=== PATIENT | female | born 1975 | race Caucasian/White ===

== ENCOUNTER 2016-06-25 10:28 | Outpatient (CLI) | payer OTHER | END 2016-06-25 10:29 | disposition home or self-care (01) | DX: E11.9 Type 2 diabetes mellitus without complications (principal) ==

== ENCOUNTER 2016-09-11 15:35 | Outpatient (CLI) | payer OTHER | END 2016-09-11 23:59 | DX: R30.0 Dysuria (principal) ==

== ENCOUNTER 2016-09-16 17:27 | Outpatient (CLI) | payer OTHER | END 2016-09-16 17:28 | disposition home or self-care (01) | DX: E11.9 Type 2 diabetes mellitus without complications (principal) ==

== ENCOUNTER 2017-01-14 08:26 | Outpatient (CLI) | payer OTHER ==
[2017-01-14 12:56] LABS: ALBUMIN/GLOBULIN RATIO 1.2 (1.0-2.2); BILIRUBIN,TOTAL 0.6 mg/dL (0.2-1.0); BUN - BLOOD UREA NITROGEN 12 mg/dL (6-20); CALCIUM 10.1 mg/dL (8.5-10.3); CARBON DIOXIDE - CO2 26 mmol/L (21-32); CHLORIDE 104 mmol/L (101-111); CHOL/HDL RATIO 5.8 (<4.4); CHOLESTEROL 213 mg/dL; CREATININE 0.5 mg/dL (0.4-1.0); GFR - MDRD 137 (>89); GLUCOSE 208 mg/dL (70-100); HDL CHOLESTEROL 37 mg/dL; LDL/HDL RATIO 3.6 (<4.4); POTASSIUM 4.5 mmol/L (3.5-5.0); SODIUM 137 mmol/L (135-145); TOTAL PROTEIN 7.1 g/dL (6.7-8.2); TRIGLYCERIDES 220 mg/dL; VLDL CHOLESTEROL 44 mg/dL
[2017-01-14 13:13] LABS: HEMOGLOBIN A1C 0.89 g/dL
== END 2017-01-14 08:27 | disposition home or self-care (01) ==
LOC: LAB.WCP 08:26
PROVIDERS: ATTEND Physician Assistant Medical
DX: E11.9 Type 2 diabetes mellitus without complications (principal)
CPT/HCPCS: 36415; 80053; 80061; 83036

== ENCOUNTER 2017-03-06 08:00 | Outpatient (CLI) | payer OTHER | END 2017-03-06 08:01 | disposition home or self-care (01) | LOC: LAB.R 08:00 | PROVIDERS: ATTEND Physician Assistant Medical | DX: L03.039 Cellulitis of unspecified toe (principal) | CPT/HCPCS: 87070; 87077; 87205 ==

== ENCOUNTER 2017-04-07 09:09 | Outpatient (CLI) | payer OTHER ==
[2017-04-07 13:04] LABS: ALBUMIN/GLOBULIN RATIO 1.1 (1.0-2.2); BILIRUBIN,TOTAL 0.9 mg/dL (0.2-1.0); BUN - BLOOD UREA NITROGEN 10 mg/dL (6-20); CALCIUM 9.8 mg/dL (8.5-10.3); CARBON DIOXIDE - CO2 25 mmol/L (21-32); CHLORIDE 104 mmol/L (101-111); CHOL/HDL RATIO 5.9 (<4.4); CHOLESTEROL 189 mg/dL; CREATININE 0.5 mg/dL (0.4-1.0); GFR - MDRD 137 (>89); GLUCOSE 155 mg/dL (70-100); HDL CHOLESTEROL 32 mg/dL; POTASSIUM 3.9 mmol/L (3.5-5.0); SODIUM 136 mmol/L (135-145); TOTAL PROTEIN 7.3 g/dL (6.7-8.2); TRIGLYCERIDES 145 mg/dL; VLDL CHOLESTEROL 29 mg/dL
[2017-04-07 13:12] LABS: HEMOGLOBIN A1C 1.04 g/dL
== END 2017-04-07 09:10 | disposition home or self-care (01) ==
LOC: LAB.WCP 09:09
PROVIDERS: ATTEND Physician Assistant Medical
DX: E78.5 Hyperlipidemia, unspecified (principal); E11.9 Type 2 diabetes mellitus without complications
CPT/HCPCS: 36415; 80053; 80061; 82043; 83036

== ENCOUNTER 2017-06-23 08:00 | Outpatient (CLI) | payer OTHER ==
[2017-06-23 13:23] LABS: ALBUMIN/GLOBULIN RATIO 1.3 (1.0-2.2); ALKALINE PHOSPHATASE 69 IU/L (42-121); ALT ALANINE AMINOTRANSFERASE 132 IU/L (10-60); AST ASPARTATE AMINOTRANSFERASE 102 IU/L (10-42); BILIRUBIN,TOTAL 0.5 mg/dL (0.2-1.0); BUN - BLOOD UREA NITROGEN 9 mg/dL (6-20); CALCIUM 9.9 mg/dL (8.5-10.3); CARBON DIOXIDE - CO2 26 mmol/L (21-32); CHLORIDE 102 mmol/L (101-111); CHOL/HDL RATIO 5.9 (<4.4); CHOLESTEROL 201 mg/dL; CREATININE 0.6 mg/dL (0.4-1.0); GFR - MDRD 111 (>89); GLUCOSE 196 mg/dL (70-100); HDL CHOLESTEROL 34 mg/dL; LDL CHOLESTEROL,CALCULATED 139 mg/dL; LDL/HDL RATIO 4.1 (<4.4); SODIUM 135 mmol/L (135-145); TOTAL PROTEIN 7.2 g/dL (6.7-8.2); VLDL CHOLESTEROL 28 mg/dL
[2017-06-23 13:51] LABS: HB2 TOTAL 15.8 g/dL; HEMOGLOBIN A1C 1.05 g/dL; HEMOGLOBIN A1C % 8.2 % (4.6-6.2)
== END 2017-06-23 08:01 | disposition home or self-care (01) ==
LOC: LAB.WCP 08:00
PROVIDERS: ATTEND Physician Assistant Medical
DX: E78.5 Hyperlipidemia, unspecified (principal); E11.9 Type 2 diabetes mellitus without complications
CPT/HCPCS: 36415; 80053; 80061; 83036; 83721

== ENCOUNTER 2017-09-15 09:23 | Outpatient (CLI) | payer OTHER ==
[2017-09-15 12:39] LABS: ALBUMIN 3.9 g/dL (3.2-5.5); ALBUMIN/GLOBULIN RATIO 1.3 (1.0-2.2); BILIRUBIN,TOTAL 0.6 mg/dL (0.2-1.0); CALCIUM 9.7 mg/dL (8.5-10.3); CREATININE 0.4 mg/dL (0.4-1.0)
[2017-09-16 13:42] LABS: HEPATITIS C ANTIBODY NON-REACTIVE (NON-REACTIVE)
== END 2017-09-15 09:24 | disposition home or self-care (01) ==
LOC: LAB.WCP 09:23
PROVIDERS: ATTEND Physician Assistant Medical
DX: E78.5 Hyperlipidemia, unspecified (principal); K76.0 Fatty (change of) liver, not elsewhere classified
CPT/HCPCS: 36415; 80053; 86704; 86709; 86803

== ENCOUNTER 2017-12-31 11:44 | Outpatient (CLI) | payer OTHER ==
[2017-12-31 19:11] LABS: CALCIUM 9.8 mg/dL (8.5-10.3)
[2017-12-31 19:14] LABS: HB2 TOTAL 15.7 g/dL; HEMOGLOBIN A1C 1.26 g/dL; HEMOGLOBIN A1C % 9.5 % (4.6-6.2)
[2017-12-31 19:23] LABS: CREATININE 0.5 mg/dL (0.4-1.0)
== END 2017-12-31 11:45 | disposition home or self-care (01) ==
LOC: LAB.WCP 11:44
PROVIDERS: ATTEND Physician Assistant Medical
DX: E11.9 Type 2 diabetes mellitus without complications (principal)
CPT/HCPCS: 36415; 80048; 83036

== ENCOUNTER 2018-03-08 21:50 | Outpatient (CLI) | payer OTHER ==
--- NOTE | 2018-03-08 23:01 | Ultrasound Report ---
Reason: ABSCESS,BACK Procedure Date: 03/08/2018 Accession Number: [id number] / [id number] Procedure: US - Chest CPT Code: FULL RESULT: EXAM: THORAX ULTRASOUND LIMITED EXAM DATE: 03/08/2018 10:09 PM. CLINICAL HISTORY: Open sore, upper left back. Concern for abscess. Drained last week. COMPARISON: None. TECHNIQUE: Real-time scanning was performed with static images obtained. FINDINGS: In the subcutaneous fat lateral to the open wound is a heterogeneous hypoechoic poorly defined area with vascularity roughly 3.3 x 1.9 cm. No drainable fluid collection. IMPRESSION: Ill-defined hypoechoic 3.3 x 1.9 area of increased vascularity in the subcutaneous fat lateral to the open wound, likely phlegmon. RADIA
== END 2018-03-08 21:51 | disposition home or self-care (01) ==
LOC: DI 21:50
PROVIDERS: ATTEND Nurse Practitioner
DX: L02.212 Cutaneous abscess of back [any part, except buttock and flank] (principal)
CPT/HCPCS: 76604

== ENCOUNTER 2018-07-05 11:59 | Outpatient (CLI) | payer OTHER ==
[2018-07-05 19:00] LABS: ALBUMIN 3.8 g/dL (3.2-5.5); ALBUMIN/GLOBULIN RATIO 1.1 (1.0-2.2); ALKALINE PHOSPHATASE 73 IU/L (42-121); ALT ALANINE AMINOTRANSFERASE 69 IU/L (10-60); AST ASPARTATE AMINOTRANSFERASE 48 IU/L (10-42); BUN - BLOOD UREA NITROGEN 12 mg/dL (6-20); CALCIUM 9.7 mg/dL (8.5-10.3); CARBON DIOXIDE - CO2 26 mmol/L (21-32); CHLORIDE 101 mmol/L (101-111); CHOL/HDL RATIO 7.3 (<4.4); CHOLESTEROL 256 mg/dL; CREATININE 0.6 mg/dL (0.4-1.0); GFR - MDRD 111 (>89); GLUCOSE 221 mg/dL (70-100); HDL CHOLESTEROL 35 mg/dL; LDL CHOLESTEROL,CALCULATED 178 mg/dL; LDL/HDL RATIO 5.1 (<4.4); SODIUM 138 mmol/L (135-145); TOTAL PROTEIN 7.2 g/dL (6.7-8.2); VLDL CHOLESTEROL 43 mg/dL
[2018-07-05 19:03] LABS: HB2 TOTAL 16.4 g/dL; HEMOGLOBIN A1C 1.25 g/dL; HEMOGLOBIN A1C % 9.1 % (4.6-6.2)
== END 2018-07-05 12:00 | disposition home or self-care (01) ==
LOC: LAB.WCP 11:59
PROVIDERS: ATTEND Physician Assistant Medical
DX: E11.9 Type 2 diabetes mellitus without complications (principal)
CPT/HCPCS: 36415; 80053; 80061; 83036; 83721

== ENCOUNTER 2018-09-15 13:42 | Emergency (ER) | payer OTHER ==
--- NOTE | 2018-09-15 14:42 | ED Physician Documentation ---
History of Present Illness - Stated complaint Stated Complaint: LOWER ABD/BACK PX - Chief complaint Chief Complaint: Abd Pain - History obtained from History obtained from: Patient - History of Present Illness Pain level max: 8 Pain level now: 8 - Additonal information Additional information: 43-year-old female presents to the emergency department with lower abdominal pain that radiates to the back, this is bilateral. Worse with movement and better with rest. Describes it as a "burning pain in my ovaries". She has no vaginal bleeding or discharge. No fevers. No trauma. Took Aleve without relief. States had a UTI approximately 1 month ago. Has mild dysuria now. Review of Systems Constitutional: denies: Fever, Chills Respiratory: denies: Cough, Wheezing Skin: denies: Rash Neurologic: denies: Focal weakness, Numbness, Confused, Altered mental status PD PAST MEDICAL HISTORY - Past Medical History Past Medical History: Yes Endocrine/Autoimmune: Type 1 diabetes Other Past Medical History: Reports hormonal issues. - Past Surgical History Past Surgical History: No - Present Medications Home Medications: Ambulatory Orders Medication Instructions Recorded Confirmed Cefdinir 300 mg PO BID #28 capsule 09/15/18 - Allergies Allergies/Adverse Reactions: Allergies Allergy/AdvReac Type Severity Reaction Status Date / Time No Known Drug Allergies Allergy Verified 09/15/18 13:54 - Social History Does the pt smoke?: No Smoking Status: Never smoker Does the pt drink ETOH?: No Does the pt have substance abuse?: No - Immunizations Immunizations are current?: Yes PD ED PE NORMAL - Vitals Vital signs reviewed: Yes - General General: Alert and oriented X 3, No acute distress, Well developed/nourished - HEENT HEENT: PERRL, Moist mucous membranes - Neck Neck: Supple, no meningeal sign - Cardiac Cardiac: RRR - Respiratory Respiratory: Clear bilaterally - Abdomen Abdomen: Soft, Non tender, Non distended - Back Back: No CVA TTP, No spinal TTP - Derm Derm: Warm and dry - Extremities Extremities: No calf tenderness / cord - Neuro Neuro: Alert and oriented X 3 - Psych Psych: Normal mood, Normal affect Results - Vitals Vitals: Vital Signs - 24 hr 09/15/18 09/15/18 09/15/18 13:52 16:05 17:07 Temperature 36.7 C 36.8 C Heart Rate 91 98 Respiratory 18 18 18 Rate Blood Pressure 183/91 H 172/92 H 150/109 H O2 Saturation 97 96 Oxygen O2 Source Room air - Labs Labs: Laboratory Tests 09/15/18 09/15/18 09/15/18 14:20 14:20 14:40 WBC 9.0 RBC 5.36 Hgb 15.1 Hct 45.5 MCV 84.9 MCH 28.2 MCHC 33.2 RDW 13.2 Plt Count 264 MPV 9.5 Neut # (Auto) 4.8 Lymph # (Auto) 3.4 [place] # (Auto) 0.6 Eos # (Auto) 0.1 Baso # (Auto) 0.1 Absolute Nucleated RBC 0.00 Nucleated RBC % 0.0 Sodium Potassium Chloride Carbon Dioxide Anion Gap BUN Creatinine Estimated GFR (MDRD) Glucose Calcium Total Bilirubin AST ALT Alkaline Phosphatase Total Protein Albumin Globulin Albumin/Globulin Ratio Lipase Urine Color YELLOW Urine Clarity HAZY Urine pH 7.0 Ur Specific Alexander 1.015 1.015 Urine Protein TRACE Urine Glucose (UA) 500 H Urine Ketones 15 H Urine Occult Blood TRACE-LYSE Urine Nitrite NEGATIVE Urine Bilirubin NEGATIVE Urine Urobilinogen 0.2 (NORMAL) Ur Leukocyte Esterase NEGATIVE Urine RBC 0-5 Urine WBC 6-10 H Ur Squamous Epith Cells MANY Squamous H Amorphous Sediment Rare Urine Bacteria Many H Ur Microscopic Review INDICATED Urine Culture Comments NOT INDICATED Urine HCG, Qual NEGATIVE 09/15/18 14:40 WBC RBC Hgb Hct MCV MCH MCHC RDW Plt Count MPV Neut # (Auto) Lymph # (Auto) [place] # (Auto) Eos # (Auto) Baso # (Auto) Absolute Nucleated RBC Nucleated RBC % Sodium 135 Potassium 3.8 Chloride 99 L Carbon Dioxide 24 Anion Gap 12.0 BUN 12 Creatinine 0.5 Estimated GFR (MDRD) 136 Glucose 209 H Calcium 10.1 Total Bilirubin 0.7 AST 52 H ALT 63 H Alkaline Phosphatase 82 Total Protein 7.4 Albumin 3.9 Globulin 3.5 Albumin/Globulin Ratio 1.1 Lipase 28 Urine Color Urine Clarity Urine pH Ur Specific Alexander Urine Protein Urine Glucose (UA) Urine Ketones Urine Occult Blood Urine Nitrite Urine Bilirubin Urine Urobilinogen Ur Leukocyte Esterase Urine RBC Urine WBC Ur Squamous Epith Cells Amorphous Sediment Urine Bacteria Ur Microscopic Review Urine Culture Comments Urine HCG, Qual PD MEDICAL DECISION MAKING - ED course Complexity details: reviewed results, re-evaluated patient, considered differential, d/w patient ED course: 43-year-old female with what appears to be a UTI. She is well-appearing, nontoxic. Declines any pain medication here for home. Given Rocephin and will place on Cefdinir for home. Patient counseled regarding signs and symptoms for which I believe and urgent re-evaluation would be necessary. Patient with good understanding of and agreement to plan and is comfortable going home at this time This document was made in part using voice recognition software. While efforts are made to proofread this document, sound alike and grammatical errors may occur. Departure - Departure Disposition: 01 Home, Self Care Clinical Impression: Pyelonephritis Condition: Good Instructions: ED Kidney Infec Female Follow-Up: Sybil Matthews PA-C [Primary Care Provider] - Within 1 week Prescriptions: Cefdinir 300 mg PO BID #28 capsule Comments: Take all antibiotics until gone. Return if you worsen. Follow-up with your doctor for further evaluation and care. Discharge Date/Time: 09/15/18 17:09
[2018-09-15 14:46] LABS: BASOPHILS # (AUTO) 0.1 10^3/uL (0.0-0.1); BASOPHILS % (AUTO) 1.1 %; EOSINOPHILS # (AUTO) 0.1 10^3/uL (0.0-0.7); EOSINOPHILS % (AUTO) 1.1 %; HGB - HEMOGLOBIN 15.1 g/dL (12.0-16.0); LYMPHOCYTES # (AUTO) 3.4 10^3/uL (1.5-3.5); LYMPHOCYTES % (AUTO) 37.7 %; MEAN CORPUSCULAR HEMOGLOBIN 28.2 pg (27.0-31.0); MEAN CORPUSCULAR HGB CONC 33.2 g/dL (32.0-36.0); MEAN CORPUSCULAR VOLUME 84.9 fL (81.0-99.0); MEAN PLATELET VOLUME 9.5 fL (7.9-10.8); MONOCYTES # (AUTO) 0.6 10^3/uL (0.0-1.0); MONOCYTES % (AUTO) 6.6 %; NEUTROPHILS # (AUTO) 4.8 10^3/uL (1.5-6.6); NEUTROPHILS % (AUTO) 53.5 %; PLT - PLATELET COUNT 264 10^3/uL (130-450); RED BLOOD COUNT 5.36 10^6/uL (4.20-5.40); RED CELL DISTRIBUTION WIDTH 13.2 % (12.0-15.0)
[2018-09-15 14:59] LABS: ALBUMIN 3.9 g/dL (3.2-5.5); ALBUMIN/GLOBULIN RATIO 1.1 (1.0-2.2); BILIRUBIN,TOTAL 0.7 mg/dL (0.2-1.0); CALCIUM 10.1 mg/dL (8.5-10.3); CREATININE 0.5 mg/dL (0.4-1.0); TOTAL PROTEIN 7.4 g/dL (6.7-8.2)
[2018-09-15] MEDS ORDERED: KETOROLAC 30 MG/ML VIAL IVP STA (15:52)
[2018-09-15 15:55] LABS: BILIRUBIN,URINE NEGATIVE (NEGATIVE); GLUCOSE, URINE (UA) 500 mg/dL (NEGATIVE); KETONES,URINE (UA) 15 mg/dL (NEGATIVE); LEUKOCYTE ESTERASE, URINE NEGATIVE (NEGATIVE); NITRITE,URINE NEGATIVE (NEGATIVE); OCCULT BLOOD,URINE TRACE-LYSE (NEGATIVE); PROTEIN,URINE TRACE mg/dL (NEGATIVE); UROBILINOGEN,URINE 0.2 (NORMAL) E.U./dL (NORMAL)
[2018-09-15 16:01] LABS: CLARITY,URINE HAZY (CLEAR)
[2018-09-15 16:02] LABS: HCG UR QUAL NEGATIVE
[2018-09-15 16:09] LABS: AMORPHOUS SEDIMENT,UR Rare /LPF; BACTERIA,URINE Many /HPF (None Seen); RBC,URINE 0-5 /HPF (0-5); SQUAMOUS EPITHELIAL CELL,UR MANY Squamous (<= Few)
[2018-09-15] MEDS ORDERED: cefTRIAXone 1 GM VIAL IVP STA (16:25)
[2018-09-15 17:07] VITALS: BP 150/109
== END 2018-09-15 17:09 | disposition home or self-care (01) ==
LOC: ED 13:42
DX: N12 Tubulo-interstitial nephritis, not specified as acute or chronic (principal); E10.9 Type 1 diabetes mellitus without complications
CPT/HCPCS: 36415; 80053; 81001; 81003; 81025; 83690; 85025; 87086; 96374; 99283

== ENCOUNTER 2018-09-24 11:30 | Outpatient (CLI) | payer OTHER | END 2018-09-24 23:59 | disposition home or self-care (01) | LOC: LAB.R 11:30 | PROVIDERS: ATTEND Physician Assistant Medical | DX: N39.0 Urinary tract infection, site not specified (principal) | CPT/HCPCS: 87086 ==

== ENCOUNTER 2018-09-30 09:28 | Outpatient (CLI) | payer OTHER ==
[2018-09-30 13:26] LABS: HB2 TOTAL 15.9 g/dL; HEMOGLOBIN A1C 1.15 g/dL; HEMOGLOBIN A1C % 8.8 % (4.6-6.2)
[2018-09-30 13:34] LABS: ALBUMIN 3.8 g/dL (3.2-5.5); ALBUMIN/GLOBULIN RATIO 1.1 (1.0-2.2); ALKALINE PHOSPHATASE 63 IU/L (42-121); ALT ALANINE AMINOTRANSFERASE 62 IU/L (10-60); AST ASPARTATE AMINOTRANSFERASE 54 IU/L (10-42); BILIRUBIN,TOTAL 1.2 mg/dL (0.2-1.0); BUN - BLOOD UREA NITROGEN 12 mg/dL (6-20); CALCIUM 10.2 mg/dL (8.5-10.3); CARBON DIOXIDE - CO2 27 mmol/L (21-32); CHLORIDE 101 mmol/L (101-111); CHOL/HDL RATIO 6.6 (<4.4); CHOLESTEROL 244 mg/dL; CREATININE 0.4 mg/dL (0.4-1.0); GFR - MDRD 176 (>89); GLUCOSE 163 mg/dL (70-100); HDL CHOLESTEROL 37 mg/dL; LDL CHOLESTEROL,CALCULATED 157 mg/dL; LDL/HDL RATIO 4.2 (<4.4); SODIUM 137 mmol/L (135-145); TOTAL PROTEIN 7.3 g/dL (6.7-8.2); VLDL CHOLESTEROL 50 mg/dL
== END 2018-09-30 09:29 | disposition home or self-care (01) ==
LOC: LAB.WCP 09:28
PROVIDERS: ATTEND Physician Assistant Medical
DX: E11.9 Type 2 diabetes mellitus without complications (principal)
CPT/HCPCS: 36415; 80053; 80061; 83036; 83721

== ENCOUNTER 2018-10-07 10:00 | Outpatient (CLI) | payer OTHER | END 2018-10-07 10:01 | disposition home or self-care (01) | LOC: LAB.WCP 10:00 | PROVIDERS: ATTEND Physician Assistant Medical | DX: N39.0 Urinary tract infection, site not specified (principal) | CPT/HCPCS: 87086 ==

== ENCOUNTER 2018-12-30 08:00 | Outpatient (CLI) | payer OTHER ==
[2018-12-30 19:05] LABS: ALBUMIN/GLOBULIN RATIO 1.3 (1.0-2.2); ALKALINE PHOSPHATASE 64 IU/L (42-121); ALT ALANINE AMINOTRANSFERASE 57 IU/L (10-60); AST ASPARTATE AMINOTRANSFERASE 39 IU/L (10-42); BILIRUBIN,TOTAL 0.8 mg/dL (0.2-1.0); BUN - BLOOD UREA NITROGEN 12 mg/dL (6-20); CALCIUM 10.1 mg/dL (8.5-10.3); CARBON DIOXIDE - CO2 26 mmol/L (21-32); CHLORIDE 103 mmol/L (101-111); CHOL/HDL RATIO 6.1 (<4.4); CHOLESTEROL 226 mg/dL; CREATININE 0.4 mg/dL (0.4-1.0); GFR - MDRD 176 (>89); GLUCOSE 190 mg/dL (70-100); HDL CHOLESTEROL 37 mg/dL; LDL CHOLESTEROL,CALCULATED 144 mg/dL; LDL/HDL RATIO 3.9 (<4.4); SODIUM 139 mmol/L (135-145); TOTAL PROTEIN 7.2 g/dL (6.7-8.2); VLDL CHOLESTEROL 45 mg/dL
[2018-12-30 19:17] LABS: HB2 TOTAL 15.1 g/dL; HEMOGLOBIN A1C 1.24 g/dL; HEMOGLOBIN A1C % 9.7 % (4.6-6.2)
== END 2018-12-30 23:59 | disposition home or self-care (01) ==
LOC: LAB.WCP 08:00
PROVIDERS: ATTEND Physician Assistant Medical
DX: E11.9 Type 2 diabetes mellitus without complications (principal)
CPT/HCPCS: 36415; 80053; 80061; 83036; 83721

== ENCOUNTER 2019-04-01 08:00 | Outpatient (CLI) | payer OTHER ==
[2019-04-01 14:24] LABS: ALBUMIN 4.1 g/dL (3.2-5.5); ALBUMIN/GLOBULIN RATIO 1.5 (1.0-2.2); BILIRUBIN,TOTAL 0.8 mg/dL (0.2-1.0); CALCIUM 10.2 mg/dL (8.5-10.3); CREATININE 0.5 mg/dL (0.4-1.0); TOTAL PROTEIN 6.9 g/dL (6.7-8.2)
[2019-04-01 15:02] LABS: HB2 TOTAL 14.9 g/dL; HEMOGLOBIN A1C 1.03 g/dL; HEMOGLOBIN A1C % 8.5 % (4.6-6.2)
== END 2019-04-01 23:59 | disposition home or self-care (01) ==
LOC: LAB.WCP 08:00
PROVIDERS: ATTEND Physician Assistant Medical
DX: E11.9 Type 2 diabetes mellitus without complications (principal)
CPT/HCPCS: 36415; 80053; 83036

== ENCOUNTER 2019-05-16 10:02 | Outpatient (CLI) | payer OTHER | END 2019-05-16 10:03 | disposition home or self-care (01) | LOC: NS 10:02 | PROVIDERS: ATTEND Physician Assistant Medical | DX: Z71.3 Dietary counseling and surveillance (principal); E11.9 Type 2 diabetes mellitus without complications; E66.01 Morbid (severe) obesity due to excess calories; Z68.42 Body mass index [BMI] 45.0-49.9, adult | CPT/HCPCS: 97802 ==

== ENCOUNTER 2019-06-29 07:00 | Outpatient (CLI) | payer OTHER ==
[2019-06-29 13:48] LABS: CALCIUM 9.7 mg/dL (8.5-10.3); CREATININE 0.5 mg/dL (0.4-1.0); HEMOGLOBIN A1C 0.89 g/dL
[2019-06-29 14:52] LABS: HB2 TOTAL 14.4 g/dL; HEMOGLOBIN A1C % 7.8 % (4.6-6.2)
== END 2019-06-29 23:59 | disposition home or self-care (01) ==
LOC: LAB.WCP 07:00
PROVIDERS: ATTEND Physician Assistant Medical
DX: E11.9 Type 2 diabetes mellitus without complications (principal)
CPT/HCPCS: 36415; 80048; 83036

== ENCOUNTER 2019-10-03 11:40 | Outpatient (CLI) | payer OTHER ==
[2019-10-03 13:49] LABS: ALBUMIN 3.9 g/dL (3.2-5.5); ALBUMIN/GLOBULIN RATIO 1.2 (1.0-2.2); ALKALINE PHOSPHATASE 68 IU/L (42-121); ALT ALANINE AMINOTRANSFERASE 53 IU/L (10-60); AST ASPARTATE AMINOTRANSFERASE 38 IU/L (10-42); BILIRUBIN,TOTAL 1.1 mg/dL (0.2-1.0); BUN - BLOOD UREA NITROGEN 11 mg/dL (6-20); CALCIUM 10.1 mg/dL (8.5-10.3); CARBON DIOXIDE - CO2 27 mmol/L (21-32); CHLORIDE 104 mmol/L (101-111); CHOL/HDL RATIO 6.6 (<4.4); CHOLESTEROL 244 mg/dL; CREATININE 0.5 mg/dL (0.4-1.0); GLUCOSE 160 mg/dL (70-100); HDL CHOLESTEROL 37 mg/dL; LDL CHOLESTEROL,CALCULATED 157 mg/dL; LDL/HDL RATIO 4.2 (<4.4); SODIUM 138 mmol/L (135-145); TOTAL PROTEIN 7.2 g/dL (6.7-8.2); VLDL CHOLESTEROL 50 mg/dL
[2019-10-03 14:25] LABS: HB2 TOTAL 15.2 g/dL; HEMOGLOBIN A1C 1.07 g/dL; HEMOGLOBIN A1C % 8.6 % (4.6-6.2)
== END 2019-10-03 23:59 | disposition home or self-care (01) ==
LOC: LAB.WCP 11:40
PROVIDERS: ATTEND Physician Assistant Medical
DX: E11.9 Type 2 diabetes mellitus without complications (principal)
CPT/HCPCS: 36415; 80053; 80061; 83036; 83721

== ENCOUNTER 2019-11-03 13:04 | Outpatient (CLI) | payer OTHER ==
--- NOTE | 2019-11-04 08:52 | Mammography Report ---
BILATERAL DIGITAL SCREENING MAMMOGRAM 3D/2D: 11/03/2019 CLINICAL: Routine screening. Baseline exam. No prior exams were available for comparison. There are scattered fibroglandular elements in both br easts. There is an oval low density mass with a circumscribed margin in the left breast at 4 o'clock middle depth. There also is an oval low density mass with a circumscribed margin in the left breast at 5 o'clock an terior depth. No other significant masses, calcifications, or other findings are seen in either breast. IMPRESSION: INCOMPLETE: NEEDS ADDITIONAL IMAGING EVALUATION The oval low density mass in the left breast at 4 o'clock middle depth is indeterminate. Mediolatera l and spot compression views as well as additional views with possible ultrasound are recommended. The oval low density mass in the left breast at 5 o'clock anterior depth is indeterminate. Mediolate ral and spot compression views as well as additional views with possible ultrasound are recommended. This exam was interpreted at Station ID: [id number]. NOTE: For mammograms, a report in lay terms will be sent to the patient. Approximately 15% of breast malignancies will not be visualized mammographically. In the management of a palpable breast mass, a negative mammogram must not discourage biopsy of a clinically suspicious lesion. Electronically Signed By: Shaheed Lucio M.D. ddp/penrad:11/03/2019 15:14:58 ACR BI-RADS Category 0: Incomplete 3340F PARENCHYMAL PATTERN: (A) - The breast(s) demonstrate(s) scattered fibroglandular densities. BI-RADS CATEGORY: (0) - 0 Mammo and US [id number] Immediate follow-up LATERALITY: (B)
== END 2019-11-03 13:05 | disposition home or self-care (01) ==
LOC: DI 13:04
PROVIDERS: ATTEND Obstetrics & Gynecology
DX: R92.8 Other abnormal and inconclusive findings on diagnostic imaging of breast (principal)
CPT/HCPCS: 77063; 77067

== ENCOUNTER 2020-01-02 12:07 | Outpatient (CLI) | payer OTHER ==
[2020-01-02 18:48] LABS: CREATININE 0.5 mg/dL (0.4-1.0)
[2020-01-02 19:33] LABS: HB2 TOTAL 15.2 g/dL; HEMOGLOBIN A1C 0.84 g/dL; HEMOGLOBIN A1C % 7.2 % (4.6-6.2)
== END 2020-01-02 23:59 | disposition home or self-care (01) ==
LOC: LAB.WCP 12:07
PROVIDERS: ATTEND Physician Assistant Medical
DX: E11.9 Type 2 diabetes mellitus without complications (principal)
CPT/HCPCS: 36415; 80048; 83036

== ENCOUNTER 2020-01-10 08:00 | Outpatient (CLI) | payer OTHER ==
[2020-01-10 18:55] LABS: CREATININE,URINE 141.3 mg/dL; MICROALBUM/CREATININE RATIO,UR 3.5 ug/mg (<30.0); MICROALBUMIN,URINE 0.5 mg/dL (0-300.0)
== END 2020-01-10 23:59 | disposition home or self-care (01) ==
LOC: LAB.R 08:00
PROVIDERS: ATTEND Physician Assistant Medical
DX: E11.9 Type 2 diabetes mellitus without complications (principal)
CPT/HCPCS: 82043; 82570

== ENCOUNTER 2020-02-14 10:30 | Outpatient (CLI) | payer OTHER ==
--- NOTE | 2020-02-14 14:39 | MRI Report ---
PROCEDURE: Foot LT W/O INDICATIONS: LEFT FOOT PAIN TECHNIQUE: Noncontrast Magnetic Resonance Imaging (MRI) of the ankle/hindfoot was performed utilizing the follow ing sequences: sagittal T1 spin echo, sagittal STIR, axial PD fast spin echo, axial T2 fast spin echo with fat saturation, coronal T2 spin echo with fat saturation, and PD fast spin echo with fat satura tion. COMPARISON: Left foot radiographs dated 10/07/2018. FINDINGS: Image quality: Diagnostic. A skin marker is present at the lateral aspect of the foot adjacent to the fourth and fifth tarsometa tarsal joints. Bones and joints: No acute fracture, dislocation, or suspicious osseous lesion of the midfoot or hindfoot bones is pres ent. Mild degenerative changes are seen at the dorsal aspect of the talonavicular joint. The ankle mo rtise is well-maintained. No osteochondral defects are evident involving the tibial plafond toward th e talar dome. No significant degenerative changes of the midfoot or hindfoot joints are present. Medial structures: The deltoid ligament and the spring ligament are intact. The posterior tibialis, flexor digitorum longus, and flexor hallucis longus tendons are intact and wi thin normal limits. The posterior tibial neurovascular bundle appears normal within the tarsal tunnel , without extrinsic mass effect. Lateral structures: The anterior and posterior distal tibiofibular ligaments are also intact. The anterior talofibular li gament, posterior talofibular ligament, and calcaneofibular ligament are intact. The peroneus longus and peroneus brevis tendons are intact and otherwise unremarkable. The sinus tarsi demonstrates normal fatty signal. Anterior structures: The tibialis anterior, extensor hallucis longus, and extensor digitorum longus tendons appear intact. Posterior and plantar structures: The Achilles tendon is intact. The medial and lateral bands of the plantar fascia are within normal l imits. Nonedematous dorsal and plantar calcaneal spurs are seen. Soft tissues: Nonspecific soft tissue edema is seen over the lateral malleolus. Mild fatty infiltration of the abdu ctor digit minimi muscle is most likely related to chronic denervation changes. Additionally, intrins ic forefoot musculature demonstrates mild fatty infiltration. IMPRESSION: 1. No acute trabecular bone injury. No significant ligament or tendon injury. 2. Mild degenerative changes at the dorsal talonavicular joint. 3. Fatty infiltration of the abductor digit minimi muscle and the intrinsic muscles of the forefoot are most likely related to chronic denervation changes. Reviewed by: Feliberto Dc MD on 02/14/2020 2:37 PM PDT Approved by: Feliberto Dc MD on 02/14/2020 2:37 PM PDT Station ID: [id number]
== END 2020-02-14 10:31 | disposition home or self-care (01) ==
LOC: DI 10:30
PROVIDERS: ATTEND Physician Assistant Medical
DX: M19.072 Primary osteoarthritis, left ankle and foot (principal)

== ENCOUNTER 2020-04-03 08:00 | Outpatient (CLI) | payer OTHER ==
[2020-04-03 18:27] LABS: ALBUMIN/GLOBULIN RATIO 1.3 (1.0-2.2); ALKALINE PHOSPHATASE 70 IU/L (42-121); ALT ALANINE AMINOTRANSFERASE 67 IU/L (10-60); AST ASPARTATE AMINOTRANSFERASE 53 IU/L (10-42); BUN - BLOOD UREA NITROGEN 9 mg/dL (6-20); CALCIUM 9.8 mg/dL (8.5-10.3); CARBON DIOXIDE - CO2 25 mmol/L (21-32); CHLORIDE 101 mmol/L (101-111); CHOLESTEROL 222 mg/dL; CREATININE 0.4 mg/dL (0.4-1.0); GLUCOSE 180 mg/dL (70-100); HDL CHOLESTEROL 37 mg/dL; LDL CHOLESTEROL,CALCULATED 145 mg/dL; LDL/HDL RATIO 3.9 (<4.4); SODIUM 137 mmol/L (135-145); TOTAL PROTEIN 7.1 g/dL (6.7-8.2); VLDL CHOLESTEROL 40 mg/dL
[2020-04-03 21:32] LABS: HEMOGLOBIN A1c% 8.1 % (4.27-6.07)
== END 2020-04-03 23:59 | disposition home or self-care (01) ==
LOC: LAB.WCP 08:00
PROVIDERS: ATTEND Physician Assistant Medical
DX: E11.9 Type 2 diabetes mellitus without complications (principal)
CPT/HCPCS: 36415; 80053; 80061; 83036; 83721

== ENCOUNTER 2020-04-11 07:20 | Outpatient (CLI) | payer OTHER ==
--- NOTE | 2020-04-11 13:59 | XRAY Report ---
PROCEDURE: Hand 3 View RT INDICATIONS: RIGHT HAND PAIN TECHNIQUE: 3 views of the hand(s) acquired. COMPARISON: None FINDINGS: Bones: No fractures or dislocations. No suspicious bony lesions. Scattered IP degenerative narrowi ng. Soft tissues: No suspicious soft tissue calcifications. IMPRESSION: No visualized acute fracture or dislocation. However, occult injury cannot be excluded. Recommend kenji rt interval imaging follow-up in 7-10 days as clinically indicated for additional evaluation. Reviewed by: Rhea Maldonado MD on 04/11/2020 1:57 PM PST Approved by: Rhea Maldonado MD on 04/11/2020 1:57 PM PST Station ID: [id number]
== END 2020-04-11 07:21 | disposition home or self-care (01) ==
LOC: DI.WCP 07:20
PROVIDERS: ATTEND Physician Assistant Medical
DX: M79.641 Pain in right hand (principal)

== ENCOUNTER 2020-07-10 08:00 | Outpatient (CLI) | payer OTHER ==
[2020-07-10 18:09] LABS: CREATININE 0.4 mg/dL (0.4-1.0)
[2020-07-10 20:44] LABS: HEMOGLOBIN A1c% 8.6 % (4.27-6.07)
== END 2020-07-10 23:59 | disposition home or self-care (01) ==
LOC: LAB.WCP 08:00
PROVIDERS: ATTEND Physician Assistant Medical
DX: E11.9 Type 2 diabetes mellitus without complications (principal)
CPT/HCPCS: 36415; 80048; 83036

== ENCOUNTER 2020-10-09 08:00 | Outpatient (CLI) | payer OTHER ==
[2020-10-09 11:56] LABS: BASOPHILS % (AUTO) 0.4 %; EOSINOPHILS # (AUTO) 0.1 10^3/uL (0.0-0.7); EOSINOPHILS % (AUTO) 1.2 %; HCT - HEMATOCRIT 44.7 % (37.0-47.0); HGB - HEMOGLOBIN 14.9 g/dL (12.0-16.0); LYMPHOCYTES # (AUTO) 2.7 10^3/uL (1.5-3.5); LYMPHOCYTES % (AUTO) 40.6 %; MEAN CORPUSCULAR HEMOGLOBIN 29.1 pg (27.0-31.0); MEAN CORPUSCULAR HGB CONC 33.3 g/dL (32.0-36.0); MEAN CORPUSCULAR VOLUME 87.3 fL (81.0-99.0); MEAN PLATELET VOLUME 12.4 fL (7.9-10.8); MONOCYTES # (AUTO) 0.6 10^3/uL (0.0-1.0); MONOCYTES % (AUTO) 8.2 %; NEUTROPHILS # (AUTO) 3.3 10^3/uL (1.5-6.6); NEUTROPHILS % (AUTO) 49.2 %; PLT - PLATELET COUNT 241 10^3/uL (130-450); RED BLOOD COUNT 5.12 10^6/uL (4.20-5.40); RED CELL DISTRIBUTION WIDTH 12.6 % (12.0-15.0); WHITE BLOOD COUNT 6.7 x10^3/uL (4.8-10.8)
[2020-10-09 12:31] LABS: CALCIUM 10.1 mg/dL (8.5-10.3); CARBON DIOXIDE - CO2 27 mmol/L (21-32); CHLORIDE 101 mmol/L (101-111); GLUCOSE 256 mg/dL (70-100); POTASSIUM 4.7 mmol/L (3.5-5.0); SODIUM 137 mmol/L (135-145)
[2020-10-09 12:46] LABS: THYROID STIMULATING HORMONE 2.11 uIU/mL (0.34-5.60)
[2020-10-09 13:26] LABS: ALBUMIN 4.2 g/dL (3.2-5.5); ALBUMIN/GLOBULIN RATIO 1.4 (1.0-2.2); ALKALINE PHOSPHATASE 85 IU/L (42-121); ALT ALANINE AMINOTRANSFERASE 65 IU/L (10-60); AST ASPARTATE AMINOTRANSFERASE 43 IU/L (10-42); BUN - BLOOD UREA NITROGEN 12 mg/dL (6-20); CHOL/HDL RATIO 6.1 (<4.4); CHOLESTEROL 221 mg/dL; CREATININE 0.6 mg/dL (0.4-1.0); GFR - MDRD 109 (>89); HDL CHOLESTEROL 36 mg/dL; LDL CHOLESTEROL,CALCULATED 130 mg/dL; LDL/HDL RATIO 3.6 (<4.4); TOTAL PROTEIN 7.2 g/dL (6.7-8.2); TRIGLYCERIDES 273 mg/dL; VLDL CHOLESTEROL 55 mg/dL
[2020-10-09 13:32] LABS: ESTIMATED AVERAGE GLUCOSE 200 mg/dL (70-100); HEMOGLOBIN A1c% 8.6 % (4.27-6.07)
== END 2020-10-09 23:59 | disposition home or self-care (01) ==
LOC: LAB.WCP 08:00
PROVIDERS: ATTEND Physician Assistant Medical
DX: E78.5 Hyperlipidemia, unspecified (principal); E11.9 Type 2 diabetes mellitus without complications; I10 Essential (primary) hypertension
CPT/HCPCS: 36415; 80053; 80061; 83036; 83721; 84443; 85025

== ENCOUNTER 2021-01-09 08:00 | Outpatient (CLI) | payer OTHER ==
[2021-01-09 18:01] LABS: CREATININE 0.4 mg/dL (0.4-1.0); POTASSIUM 4.3 mmol/L (3.5-5.0)
[2021-01-09 20:08] LABS: ESTIMATED AVERAGE GLUCOSE 174 mg/dL (70-100); HEMOGLOBIN A1c% 7.7 % (4.27-6.07)
== END 2021-01-09 23:59 | disposition home or self-care (01) ==
LOC: LAB.WCP 08:00
PROVIDERS: ATTEND Physician Assistant Medical
DX: E11.9 Type 2 diabetes mellitus without complications (principal)
CPT/HCPCS: 36415; 80048; 83036

== ENCOUNTER 2021-01-27 08:00 | Outpatient (CLI) | payer OTHER | END 2021-01-27 23:59 | disposition home or self-care (01) | LOC: LAB.N 08:00 | PROVIDERS: ATTEND Physician Assistant Medical | DX: U07.1 COVID-19 (principal) ==

== ENCOUNTER 2021-01-31 16:27 | Inpatient (IN) | payer OTHER ==
--- NOTE | 2021-01-31 17:32 | XRAY Report ---
PROCEDURE: Chest 1 View X-Ray INDICATIONS: Short of breath TECHNIQUE: One view of the chest was acquired. COMPARISON: None FINDINGS: Surgical changes and devices: None. Lungs and pleura: No pleural effusions or pneumothorax. Lungs are clear. Mediastinum: Heart size enlarged. Moderate vascular congestion present. Obscuration of left hemidiaph ragm. Bones and chest wall: No suspicious bony lesions. Overlying soft tissues appear unremarkable. IMPRESSION: Cardiomegaly, moderate vascular congestion and left pleural effusion with atelectasis and or infiltra te Reviewed by: Gómez Steel MD on 01/31/2021 4:31 PM YVAN Approved by: Gómez Steel MD on 01/31/2021 4:31 PM [place]BER[place] Station ID: [id number]
[2021-01-31 17:38] LABS: BASOPHILS % (AUTO) 0.3 %; HCT - HEMATOCRIT 43.8 % (37.0-47.0); HGB - HEMOGLOBIN 14.8 g/dL (12.0-16.0); LYMPHOCYTES # (AUTO) 1.1 10^3/uL (1.5-3.5); LYMPHOCYTES % (AUTO) 28.8 %; MEAN CORPUSCULAR HEMOGLOBIN 29.2 pg (27.0-31.0); MEAN CORPUSCULAR HGB CONC 33.8 g/dL (32.0-36.0); MEAN CORPUSCULAR VOLUME 86.4 fL (81.0-99.0); MEAN PLATELET VOLUME 11.9 fL (7.9-10.8); MONOCYTES # (AUTO) 0.2 10^3/uL (0.0-1.0); MONOCYTES % (AUTO) 5.4 %; NEUTROPHILS # (AUTO) 2.5 10^3/uL (1.5-6.6); NEUTROPHILS % (AUTO) 65.2 %; PLT - PLATELET COUNT 143 10^3/uL (130-450); RED BLOOD COUNT 5.07 10^6/uL (4.20-5.40); RED CELL DISTRIBUTION WIDTH 12.8 % (12.0-15.0); WHITE BLOOD COUNT 3.9 x10^3/uL (4.8-10.8)
[2021-01-31] MEDS ORDERED: AZITHROMYCIN INJ 500 MG in SODIUM CHLORIDE 0.9% 250 ML IV STA (17:41)
[2021-01-31] MEDS ORDERED: DEXAMETHASONE 10 MG/ML VIAL IV STA (17:41)
[2021-01-31 17:48] LABS: ALBUMIN 3.7 g/dL (3.2-5.5); ALBUMIN/GLOBULIN RATIO 1.2 (1.0-2.2); BILIRUBIN,TOTAL 0.9 mg/dL (0.2-1.0); CALCIUM 9.8 mg/dL (8.5-10.3); CREATININE 0.5 mg/dL (0.4-1.0); POTASSIUM 3.7 mmol/L (3.5-5.0); TOTAL PROTEIN 6.9 g/dL (6.7-8.2)
--- NOTE | 2021-01-31 17:50 | ED Physician Documentation ---
History of Present Illness - Stated complaint Stated Complaint: C+ - Chief complaint Chief Complaint: Resp - Additonal information Additional information: 45-year-old female who has a history of diabetes as well as morbid obesity presents to the emergency department for worsening shortness of breath in the setting of COVID-19 infection. She began developing symptoms on 23 January and tested positive with a rapid test on 27 January. Over the last 24 hours she has noted marked dyspnea with exertion as well as worsening cough. She has had fevers, loss of taste and smell. Denies diarrhea or dysuria. She is not vaccinated for COVID-19. Responds that she does not even get the flu vaccine. She is on multiple insulins for control of her diabetes reports recent 30 pound weight loss. Patient did present hypoxic with ambulation saturations of 88% rebounded to 94% on 2 L nasal cannula. When nasal cannula was turned off saturations declined again to about 88%. Non-smoker. Review of Systems Constitutional: reports: Fever, Myalgias, Fatigue Eyes: reports: Reviewed and negative Ears: reports: Reviewed and negative Nose: reports: Rhinorrhea / runny nose, Congestion Throat: reports: Reviewed and negative Cardiac: denies: Chest pain / pressure, Palpitations Respiratory: reports: Dyspnea, Cough. denies: Hemoptysis, Wheezing GI: reports: Reviewed and negative : reports: Reviewed and negative Skin: reports: Reviewed and negative Musculoskeletal: reports: Reviewed and negative PD PAST MEDICAL HISTORY - Past Medical History Past Medical History: Yes Cardiovascular: Hypertension, High cholesterol Neuro: Peripheral neuropathy Endocrine/Autoimmune: Type 2 diabetes GI: Pancreatitis Psych: Other Musculoskeletal: Chronic back pain, Other Derm: Eczema - Past Surgical History Past Surgical History: No - Present Medications Home Medications: Ambulatory Orders Medication Instructions Recorded Confirmed Alpha Lipoic Acid 200 mg PO TID 04/14/19 04/14/19 Arginine [l-Arginine] 500 mg PO DAILY 04/14/19 04/14/19 Biotin 2,000 mcg PO BID 04/14/19 04/14/19 Cholecalciferol (Vitamin D3) 1,000 unit PO DAILY 04/14/19 04/14/19 [Vitamin D3] Cinnamon Bark [Cinnamon] 500 mg PO DAILY 04/14/19 04/14/19 Clobetasol 0.05% Oint [Temovate 1 applic TOP BID 04/14/19 04/14/19 0.05% Oint] Folic Acid 0.8 mg PO DAILY 04/14/19 04/14/19 Glimepiride 4 mg PO DAILY 04/14/19 04/14/19 Grape Seed Extract [Meganatural-Bp] 150 mg PO BID 04/14/19 04/14/19 Green Tea [place] Extract [Green Tea 300 mg PO DAILY 04/14/19 04/14/19 Extract] Insulin Lispro [Humalog] 0 - 60 unit SUBQ QID 04/14/19 04/14/19 Insulin NPH Human Isophane 40 units SQ DAILY 04/14/19 04/14/19 [Humulin N] Krill/Om-3/Dha/Epa/Phospho/Ast 2 each PO DAILY 04/14/19 04/14/19 [Krill Oil 500 mg Softgel] Magnesium 250 mg PO DAILY 04/14/19 04/14/19 Metformin HCl 1,000 mg PO BID 04/14/19 04/14/19 Milk Thistle Seed Extract [Milk 175 mg PO BID 04/14/19 04/14/19 Thistle] Naproxen Sodium 500 mg PO BID 04/14/19 04/14/19 Omeprazole 20 mg PO BID 04/14/19 04/14/19 Potassium Gluconate 99 mg PO DAILY 04/14/19 04/14/19 Senna [Senokot] 34.6 mg PO DAILY 04/14/19 04/14/19 Turmeric Root Extract [Turmeric] 500 mg PO TID 04/14/19 04/14/19 Vitamin E (Dl,Tocopheryl Acet) 400 unit PO DAILY 04/14/19 04/14/19 [Vitamin E] inositoL [Inositol] 500 mg PO DAILY 04/14/19 04/14/19 lisinopriL [Lisinopril] 10 mg PO DAILY 04/14/19 04/14/19 - Allergies Allergies/Adverse Reactions: Allergies Allergy/AdvReac Type Severity Reaction Status Date / Time tomato Allergy Unknown Verified 01/31/21 16:54 - Social History Does the pt smoke?: No Smoking Status: Never smoker Does the pt drink ETOH?: No Does the pt have substance abuse?: No - Immunizations Immunizations are current?: Yes - POLST Patient has POLST: No PD ED PE EXPANDED - General General: Alert, Other (morbid obesity) - Neck Neck: Supple w/out meningeal sx. No: Adenopathy - Cardiac Cardiac: Regular Rate, Radial strong equal, Pedal strong equal, Cap refill < 2 sec - Respiratory Respiratory: Labored, Rales, Decreased breath sounds (bilateral lung bases). No: Distress - Abdomen Abdomen: Normal Bowel sounds. No: Tender to palpation (Abdominal exam somewhat limited by body habitus) - Back Back: Normal exam - Neuro Neuro: Alert and Oriented X 3, CNII-XII intact - GCS Eye Opening: Spontaneous Motor: Obeys Commands Verbal: Oriented Total: 15 Results - Vitals Vitals: Vital Signs - 24 hr 01/31/21 01/31/21 16:47 17:38 Temperature 38.4 C H Heart Rate 98 101 H Respiratory 18 14 Rate Blood Pressure 131/71 H 121/73 O2 Saturation 93 93 Oxygen O2 Source Room air Oxygen Flow Rate 2 - Labs Labs: Laboratory Tests 01/31/21 01/31/21 17:28 17:37 WBC 3.9 L RBC 5.07 Hgb 14.8 Hct 43.8 MCV 86.4 MCH 29.2 MCHC 33.8 RDW 12.8 Plt Count 143 MPV 11.9 H Neut # (Auto) 2.5 Lymph # (Auto) 1.1 L [place] # (Auto) 0.2 Eos # (Auto) 0.0 Baso # (Auto) 0.0 Absolute Nucleated RBC 0.00 Nucleated RBC % 0.0 Sodium 135 Potassium 3.7 Chloride 100 L Carbon Dioxide 23 Anion Gap 12.0 BUN 9 Creatinine 0.5 Estimated GFR (MDRD) 135 Glucose 178 H Calcium 9.8 Total Bilirubin 0.9 AST 44 H ALT 54 Alkaline Phosphatase 73 Total Protein 6.9 Albumin 3.7 Globulin 3.2 Albumin/Globulin Ratio 1.2 Lipase 43 - Rads (name of study) CXR Radiology: Final report received (Cardiomegaly, moderate vascular congestion and left pleural effusion with atelectasis and/or infiltrate) PD MEDICAL DECISION MAKING - ED course Complexity details: reviewed results, d/w patient, d/w building performance consultant ED course: 45-year-old obese diabetic female who is not yet vaccinated for COVID-19 pr esents with worsening exertional dyspnea and hypoxia on room air. She began developing symptoms of COVID-19 including cough congestion loss of taste and smell on 23 January. She tested positive on the fifth. Over the last 24 hours she has had worsening dyspnea and productive cough. On presentation she was 88% on room air after ambulation and remained hypoxic despite rest. She was placed on 2 L nasal cannula with resultant rise in saturations to about 93%. Screening labs show an expected neutropenia is typically seen with COVID-19 infection. Electrolytes show no significant worrisome abnormalities. Chest x- ray is consistent with bilateral basilar infiltrates. First dose of Decadron administered here in the emergency department as well as an additional dose of azithromycin. I have contacted pharmacy for the first dose of remdesivir. I have spoken with hospitalist Dr. Mtz who agrees to admit this patient. I have discussed the plan with the patient is well and she agrees to further treatment Departure - Departure Disposition: 66 [facility] DC/Xfer Clinical Impression: COVID-19 virus infection, Hypoxia, History of diabetes mellitus Condition: Serious
[2021-01-31 18:01] LABS: HCG,QUALITATIVE BLOOD NEGATIVE
[2021-01-31] MEDS ORDERED: REMDESIVIR 100MG VIAL 200 MG in SODIUM CHLORIDE 0.9% 250 ML IV ONE (19:00)
[2021-01-31] MEDS ORDERED: INSULIN GLARGINE 300 UNIT/3 ML PEN SUBQ SCH (21:00)
[2021-01-31] MEDS ORDERED: ENOXAPARIN 40 MG/0.4 ML SYRINGE SUBQ ONE (21:17)
[2021-01-31] MEDS ORDERED: INSULIN GLARGINE 300 UNIT/3 ML PEN SUBQ ONE (21:17)
[2021-01-31] MEDS ORDERED: INSULIN ASPART 300 UNIT/3 ML PEN SUBQ ONE (21:17)
[2021-01-31] MEDS ORDERED: cefTRIAXone 1 GM VIAL ONE (21:17)
--- NOTE | 2021-01-31 21:38 | HISTORY & PHYSICAL EXAMINATION ---
Chief Complaint - Chief Complaint Chief Complaint: cough, sob History of Present Illness - Admitted From Admitted From:: home - History Obtained From [facility] History obtained from: patient and Dr. Mtz Exam Limitations: none - History of Present Illness HPI Comment/Other: 45-year-old female who is followed by Karoline Matthews PA-C. She has a history of hypertension, diabetes mellitus requiring insulin, hyperlipidemia, morbid obesity, chronic low back pain and presents with cough and shortness of breath that started January 23. She is unvaccinated and does not believe in vaccines. She does not even get the flu vaccine. Seen in the walk in clinic 01/27 because the shortness of breath progressed to productive green mucus, loose stool. Her child was Covid positive and she was positive for COVID-19 that day. She has lost her sense of smell, has no appetite. Shortness of breath progressed today that she came to the emergency room. Temperature was 38.4. Pulse 98. Blood pressure 131/71. Respirations 18. 93% on room air. When she walked in the emergency room her O2 sat would drop to 88%. She would rebound to 94% on 2 L with walking. She has no GI complaints. She is a morbidly obese alert female who has a regular rate and rhythm that is tachycardic. She has decreased breath sounds bilaterally at the lung bases. No respiratory distress. Normal bowel sounds. A normal neurological exam. She is leukopenic with a white cell count of 3.9. Hemoglobin is 14.8. Hematocrit 43. Platelets 143. CMP is normal except for glucose of 178. AST 44. She is Covid positive on PCR testing. Chest x-ray has cardiomegaly with moderate vascular congestion and left pleural ef fusion with atelectasis and/or infiltrate. She was given azithromycin, Decadron, and remdesivir. Our service is being asked to admit her for Covid pneumonia. History - Past Medical History Cardiovascular: reports: Hypertension, High cholesterol (Cannot tolerate statins, not even red yeast rice) Respiratory: reports: Other (History of bronchitis and sinusitis) Neuro: reports: Migraines (When she was younger), Peripheral neuropathy Endocrine/Autoimmune: reports: Type 2 diabetes, Other (Morbid obesity) GI: reports: Pancreatitis (with subsequent DM), Other (Fatty liver disease) RN GASTROENTEROLOGY: reports: Miscarriage(s) (Spontaneous age 17, gestational age 4 weeks), Other (G1, P0, Amenorrhea since 2013, PCOS on medroxyprogesterone shots) Psych: reports: Other Musculoskeletal: reports: Osteoarthritis (Lower back And hips), Chronic back pain, Other Derm: reports: Eczema, Other (acanthosis nigricans) MRSA Hx?: No - Family & Social History Family History Comment/Other: Mother alive, age 62, with diabetes, depression, hypertension, accident, high cholesterol, mental illness. Father age 61, of head and neck cancer w mets, depression, heart attack, hypertension, hepatitis, alcohol abuse. 2 brothers. possible mental illness, no alcohol abuse, no other diseases. 3 adopted children Living arrangement: At home Living Situation: With spouse/s.o., With family Social History Notes: Former smoker that smoked 1 pack/day and quit in 2003 after 17 years. 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 No history of recreational substance abuse. 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 1 of her daughters w Covid as well. She tells me that her will be the default power of scientific diver if she becomes unconscious and cannot speak for herself. - Substance History Use: Uses substance without health or social issues: NONE Abuse: Recurrent use of substance despite neg consequences: NONE Dependence: Experiences withdrawal or developed tolerances: NONE - POLST Patient has POLST: No POLST Status: Full Code (she has not discussed w but agrees to intubation and CPR if needed) Meds/Allgy - Home Medications Home Medications: Ambulatory Orders Medication Instructions Recorded Confirmed Alpha Lipoic Acid 200 mg PO TID 04/14/19 04/14/19 Arginine [l-Arginine] 500 mg PO DAILY 04/14/19 04/14/19 Biotin 2,000 mcg PO BID 04/14/19 04/14/19 Cholecalciferol (Vitamin D3) 1,000 unit PO DAILY 04/14/19 04/14/19 [Vitamin D3] Cinnamon Bark [Cinnamon] 500 mg PO DAILY 04/14/19 04/14/19 Clobetasol 0.05% Oint [Temovate 1 applic TOP BID 04/14/19 04/14/19 0.05% Oint] Folic Acid 0.8 mg PO DAILY 04/14/19 04/14/19 Glimepiride 4 mg PO DAILY 04/14/19 04/14/19 Grape Seed Extract [Meganatural-Bp] 150 mg PO BID 04/14/19 04/14/19 Green Tea [place] Extract [Green Tea 300 mg PO DAILY 04/14/19 04/14/19 Extract] Insulin Lispro [Humalog] 0 - 60 unit SUBQ QID 04/14/19 04/14/19 Insulin NPH Human Isophane 40 units SQ DAILY 04/14/19 04/14/19 [Humulin N] Krill/Om-3/Dha/Epa/Phospho/Ast 2 each PO DAILY 04/14/19 04/14/19 [Krill Oil 500 mg Softgel] Magnesium 250 mg PO DAILY 04/14/19 04/14/19 Metformin HCl 1,000 mg PO BID 04/14/19 04/14/19 Milk Thistle Seed Extract [Milk 175 mg PO BID 04/14/19 04/14/19 Thistle] Naproxen Sodium 500 mg PO BID 04/14/19 04/14/19 Omeprazole 20 mg PO BID 04/14/19 04/14/19 Potassium Gluconate 99 mg PO DAILY 04/14/19 04/14/19 Senna [Senokot] 34.6 mg PO DAILY 04/14/19 04/14/19 Turmeric Root Extract [Turmeric] 500 mg PO TID 04/14/19 04/14/19 Vitamin E (Dl,Tocopheryl Acet) 400 unit PO DAILY 04/14/19 04/14/19 [Vitamin E] inositoL [Inositol] 500 mg PO DAILY 04/14/19 04/14/19 lisinopriL [Lisinopril] 10 mg PO DAILY 04/14/19 04/14/19 - Allergies Allergies/Adverse Reactions: Allergies Allergy/AdvReac Type Severity Reaction Status Date / Time tomato Allergy Unknown Verified 01/31/21 16:54 Review of Systems - Constitutional Constitutional: reports: Fatigue, Malaise, Weakness, Poor appetite, Weight loss (tryiing to lose over last 3 months) - Eyes Eyes: reports: Other (no retinopathy w eye MD). denies: Pain, Irritation, Amaurosis, Blurred vision, Vision loss, Dipolpia - Ears, Nose & Throat Ears, Nose & Throat: reports: Nasal obstruction, Nasal congestion, Sore throat. denies: Ear pain, Hearing loss, Hearing aids, Vertigo, Nasal pain, Nasal discharge, Mouth lesions, Bleeding gums - Cardiovascular Cariovascular: reports: Edema (mild), Exertional dyspnea, Decr. exercise shoshana ance. denies: Irregular heart rate, Palpitations, Chest pain, Syncope - Respiratory Respiratory: reports: Cough, Sputum production, Wheezing, SOB at rest, SOB with exertion - Gastrointestinal Gastrointestinal: reports: Change in bowel habits (w new loose stool), Reflux/heartburn, Poor appetite. denies: Abdominal pain, Abdominal distention, Constipation, Diarrhea (but has loose stool), Rectal bleeding, Black stools, B loody stools, Nausea, Vomiting - Genitourinary Genitourinary: denies: Dysuria, Frequency, Urgency, Hematuria, Incontinence, Flank pain - Musculoskeletal Musculoskeletal: reports: Muscle pain, Back pain, Muscle aches, Joint pain (Left lateral malleolus. [place] to have gastrocnemius equinus), Other (chronic back pain, hips ache) - Integumentary Integumentary: denies: Rash, Pruritis, Lesions, Dryness - Neurological Neurological: reports: General weakness, Headache. denies: Focal weakness, Dizziness, Memory problems, Pre-existing deficit, Abnormal gait, Seizures, Incoordination, Slurred speech - Psychiatric Psychiatric: denies: Depression, Anxiety, Suicidal, Delusions, Hallucinations - Endocrine Endocrine: denies: Polyuria, Polydypsia, Polyphagia, Intolerance to cold - Hematologic/Lymphatic Hematologic/Lymphatic: denies: Anemia, Bruising Prior Level of Functionality: Still working. 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 Cleans the house. Does not use durable medical equipment. Dresses self, feed herself, pays the bills. Has 3 kids at home. Exam - Vital Signs Reviewed Vital Signs: Yes Vital Signs: Vital Signs x48h Temp Pulse Resp BP Pulse Ox 01/31/21 19:00 38.5 C H 101 H 16 143/79 H 93 01/31/21 17:38 101 H 14 121/73 93 01/31/21 16:47 38.4 C H 98 18 131/71 H 93 - Physical Exam General Appearance: positive: No acute distress, Alert, Other (Ring morbidly obese white female laying comfortably in bed with no tachypnea while she speaks to me. Cough is infrequent.) Eyes Bilateral: positive: PERRL, EOMI ENT: positive: No signs of dehydration Neck: positive: No JVD. negative: Lymphadenopathy (R), Lymphadenopathy (L), Stiff neck Respiratory: positive: No respiratory distress, Rhonchi (In upper lung estrada). negative: Wheezes, Rales Cardiovascular: positive: Regular rate & rhythm. negative: Gallop/S4, Friction rub Peripheral Pulses: positive: 1+ Abdomen: positive: Non-tender, No organomegaly, Nml bowel sounds, No distention Skin: positive: Warm, Dry, Pallor Extremities: positive: Non-tender, Pedal edema (trAce around ankles) Neurologic/Psychiatric: positive: Oriented x3, CN's nml (2-12), Motor nml. nega tive: Sensation nml (Loss of light touch when I test with cotton around feet, up to malleolar I) Conclusion/Plan - Problem List (1) COVID-19 virus infection Conclusion/Plan: With hypoxemia. Leukopenia. Unvaccinated. Plan: Inpatient status Remdesivir 5 days Decadron 10 days Lovenox 40 mg subcu daily Empiric therapy with Rocephin and azithromycin since there is a focal opacity described on chest x-ray (2) Hypoxia Conclusion/Plan: Nasal cannula oxygen at this time. This seems to be covering her. She is not happy at the discussion about advance care planning and my asking of CODE STATUS. She states that she would prefer not to be intubated. I explained to her that we usually DO NOT INTUBATE unless is absolutely medically necessary. She is never really had a conversation with her , but I did describe nasal cannula, high flow oxygen, BiPAP, then intubation. She states that she does not know if she can give me a clear decision tonight so I explained that by default then she is a full code. If she were to change her mind and does not want to be fully resuscitated, She needs to let us know. (3) Type 2 diabetes mellitus with complication, with long-term current use of insulin Conclusion/Plan: She usually uses Metformin, glimepiride, NPH and diet. She has been working on losing weight and trying to be better about her diabetes in the last 3 months. Plan: Lantus twice daily Sliding scale insulin Glycosylated hemoglobin in the morning Anticipate Decadron will increase her glucose (4) Hypertension Conclusion/Plan: At this time stable. We will resume her usual lisinopril Qualifiers: Hypertension type: primary hypertension Qualified Code(s): I10 - Essential (primary) hypertension (5) At risk for deep venous thrombosis Conclusion/Plan: Morbidly obese, uses medroxyprogesterone, and is sedentary due to illness. Plan: Lovenox 40 mg subcu Encouraged to please get up out of her bed during the day. Walk around the room. Make sure she eats her meals in her chair. - Lab Results Lab results reviewed: Yes Fish Bones: 01/31/21 17:28 01/31/21 17:37 - Diagnostic Imaging Results Diagnostic Imaging Results: positive: Final report reviewed Diagnostic Imaging Results Comments: Cardiomegaly with moderate vascular congestion and left pleural effusion with atelectasis and/or infiltrate on chest x-ray Core Measures - Anticipated LOS I expect patient to be DC'd or transferred within 96 hours.: Yes - DVT/VTE - Prophylaxis VTE/DVT Device ordered at admit?: Yes
[2021-01-31 21:43] LABS: CORONAVIRUS 229E-RESP PCR NOT DETECTED; CORONAVIRUS HKU1-RESP PCR NOT DETECTED; CORONAVIRUS NL63-RESP PCR NOT DETECTED; CORONAVIRUS OC43-RESP PCR NOT DETECTED
[2021-01-31 21:44] LABS: B. PARAPERTUSSIS- RESP PCR PAN NOT DETECTED; B. PERTUSSIS- RESP PCR PANEL NOT DETECTED; C. PNEUMONIAE- RESP PCR PANEL NOT DETECTED; HUMAN METAPNEUMOVIRUS NOT DETECTED; INFLUENZA A- RESP PCR PANEL NOT DETECTED; INFLUENZA B - RESP PCR PANEL NOT DETECTED; M. PNEUMONIAE- RESP PCR PANEL NOT DETECTED; PARAINFLUENZA VIRUS 1 NOT DETECTED; PARAINFLUENZA VIRUS 2 NOT DETECTED; PARAINFLUENZA VIRUS 3 NOT DETECTED; PARAINFLUENZA VIRUS 4 NOT DETECTED; RHINOVIRUS/ENTEROVIRUS NOT DETECTED; RSV- RESP PCR PANEL NOT DETECTED; SARS-CoV-2 -RESP PCR PANEL DETECTED
[2021-01-31] MEDS: cefTRIAXone 1 GM in SODIUM CHLORIDE 0.9% MINIBAG 100 ML IV SCH (21:45)
[2021-01-31] MEDS: INSULIN ASPART 300 UNIT/3 ML PEN SUBQ SCH (21:45)
[2021-01-31] MEDS: ENOXAPARIN 40 MG/0.4 ML SYRINGE SUBQ SCH (21:45)
[2021-02-01] MEDS: PANTOPRAZOLE 40 MG TABLET PO SCH (06:56)
[2021-02-01] MEDS ORDERED: INSULIN GLARGINE 300 UNIT/3 ML PEN SUBQ SCH (08:00)
[2021-02-01] MEDS: INSULIN ASPART 300 UNIT/3 ML PEN SUBQ SCH ×4 (08:10→21:48)
[2021-02-01] MEDS: DEXAMETHASONE 4 MG/ML VIAL IVP SCH (08:23)
[2021-02-01] MEDS: ENOXAPARIN 40 MG/0.4 ML SYRINGE SUBQ SCH ×2 (08:25→21:48)
[2021-02-01] MEDS: cefTRIAXone 1 GM in SODIUM CHLORIDE 0.9% MINIBAG 100 ML IV SCH (08:25)
[2021-02-01] MEDS: lisinopriL 5 MG TABLET PO SCH (08:25)
[2021-02-01] MEDS ORDERED: AZITHROMYCIN INJ 500 MG in SODIUM CHLORIDE 0.9% 250 ML IV SCH (09:00)
[2021-02-01] MEDS: REMDESIVIR 100MG VIAL 100 MG in SODIUM CHLORIDE 0.9% 100ML 100 ML IV SCH (09:15)
[2021-02-01] MEDS: AZITHROMYCIN INJ 500 MG in SODIUM CHLORIDE 0.9% 250 ML IV SCH (10:14)
[2021-02-01] MEDS: CHOLECALCIFEROL 5,000 UNIT CAPSULE PO SCH (11:36)
[2021-02-01 12:40] LABS: ESTIMATED AVERAGE GLUCOSE 183 mg/dL (70-100)
--- NOTE | 2021-02-01 14:25 | PHARMACY PROGRESS NOTE ---
- Best Possible Medication History Admit Date and Time: 01/31/21 1829 Processed by: Pharmacy Medication History completed: Yes Patient Interview: Pt unable to participate Secondary Source(s): Physician records, Pharmacy records, Insurance records As the person ultimately responsible for medication therapy, providers are able to order a medication from an existing home medication list in [facility] via the "Reconcile Routine" prior to Confirmation of that medication by web support engineer. Such practice is discouraged except when the physician, in their clinical judgment, deems that a medical need exists for a medication without regard to previous use.
[2021-02-01] MEDS ORDERED: polyethylene glycoL 3350 17 GM PACKET PO PRN (15:27)
--- NOTE | 2021-02-01 15:36 | PROVIDER PROGRESS NOTE ---
Subjective - Prog Note Date Prog Note Date: 02/01/21 Prog Note Time: 15:34 - Subjective Pt reports feeling: Improved (feels a little better than yesterday, feels she's able to cough more effectively. Able to eat, was up in the chair a bit. cant lie fully prone bc back pain (aggreeable to trying w/ pillows under abdomen later if that helps make that position tolerable) asking about A1C) Current Medications - Current Medications Current Medications: Active Medications Generic Name Dose Route Start Last Admin Trade Name Freq PRN Reason Stop Dose Admin Acetaminophen 650 mg 01/31/21 23:37 Acetaminophen 325 Mg Tablet PO Q4HR PRN Pain or Fever > 38C (100.4F) Cholecalciferol 5,000 unit 02/01/21 11:00 02/01/21 11:36 Cholecalciferol 5,000 Unit Capsule PO 5,000 unit DAILY KECIA Administration Dexamethasone 6 mg 02/01/21 09:00 02/01/21 08:23 Dexamethasone 4 Mg/Ml Vial IVP 6 mg DAILY KECIA Administration Enoxaparin Sodium 40 mg 01/31/21 20:39 02/01/21 08:25 Enoxaparin 40 Mg/0.4 Ml Syringe SUBQ 40 mg DAILY KECIA Administration Remdesivir 100 mg/ Sodium 100 mls @ 200 mls/hr 02/01/21 09:00 02/01/21 09:45 Chloride IV 02/04/21 09:29 Infused DAILY KECIA Infusion Ceftriaxone Sodium 1 gm/ 100 mls @ 200 mls/hr 01/31/21 20:37 02/01/21 09:00 Sodium Chloride IV Infused DAILY KECIA Infusion Azithromycin 500 mg/ Sodium 250 mls @ 250 mls/hr 02/01/21 10:30 02/01/21 1 1:15 Chloride IV 02/02/21 11:29 Infused 1030 KECIA Infusion Ibuprofen 400 mg 01/31/21 23:37 Ibuprofen 400 Mg Tablet PO Q6HR PRN PAIN Insulin Aspart 1 - 5 unit 01/31/21 21:00 02/01/21 12:03 Insulin Aspart 300 Unit/3 Ml Pen SUBQ 4 unit 0800,1200,1700,2100 KECIA Administration Protocol Insulin Glargine 10 unit 02/01/21 08:00 02/01/21 08:12 Insulin Glargine 300 Unit/3 Ml Pen SUBQ 10 unit QDBREAKFAST KECIA Administration Insulin Glargine 30 unit 01/31/21 21:00 01/31/21 21:46 Insulin Glargine 300 Unit/3 Ml Pen SUBQ 30 unit QPM KECIA Administration Lisinopril 10 mg 02/01/21 09:00 02/01/21 08:25 Lisinopril 5 Mg Tablet PO 10 mg DAILY KECIA Administration Pantoprazole Sodium 40 mg 02/01/21 07:00 02/01/21 06:56 Pantoprazole 40 Mg Tablet PO 40 mg QDAC KECIA Administration Polyethylene Glycol 17 gm 02/01/21 15:27 Polyethylene Glycol 3350 17 Gm Packet PO DAILY PRN Bowel Protocol Senna 34.4 mg 02/01/21 21:00 Senna 8.6 Mg Tablet PO QPM [facility] Alpha Lipoic Acid 200 mg PO TID 04/14/19 Arginine [l-Arginine] 500 mg PO DAILY 04/14/19 Biotin 2,000 mcg PO BID 04/14/19 Cholecalciferol (Vitamin D3) [Vitamin D3] 1,000 unit PO DAILY 04/14/19 Cinnamon Bark [Cinnamon] 500 mg PO DAILY 04/14/19 Folic Acid 0.8 mg PO DAILY 04/14/19 Glimepiride 4 mg PO DAILY 04/14/19 Grape Seed Extract [Meganatural-Bp] 150 mg PO BID 04/14/19 Green Tea [place] Extract [Green Tea Extract] 300 mg PO DAILY 04/14/19 Insulin Lispro [Humalog] 0 - 60 unit SUBQ QID 04/14/19 Insulin NPH Human Isophane [Humulin N] 60 units SQ DAILY 04/14/19 Krill/Om-3/Dha/Epa/Phospho/Ast [Krill Oil 500 mg Softgel] 2 each PO DAILY 04/14/19 Magnesium 250 mg PO DAILY 04/14/19 Metformin HCl 1,000 mg PO BID 04/14/19 Milk Thistle Seed Extract [Milk Thistle] 175 mg PO BID 04/14/19 Omeprazole 20 mg PO BIDAC 04/14/19 Potassium Gluconate 99 mg PO DAILY 04/14/19 Senna [Senokot] 34.6 mg PO DAILY 04/14/19 Turmeric Root Extract [Turmeric] 500 mg PO TID 04/14/19 Vitamin E (Dl,Tocopheryl Acet) [Vitamin E] 400 unit PO DAILY 04/14/19 inositoL [Inositol] 500 mg PO DAILY 04/14/19 lisinopriL [Lisinopril] 10 mg PO DAILY 04/14/19 Insulin NPH Human [Humulin N] 70 unit SUBQ QPM 02/01/21 Naproxen 500 mg PO BID PRN 02/01/21 Objective - Vital Signs/Intake & Output Reviewed Vital Signs: Yes Vital Signs: Vital Signs x48h Temp Pulse Resp BP Pulse Ox 02/01/21 12:06 37 C 86 22 122/66 89 L 02/01/21 08:08 37.2 C 101 H 22 144/77 H 95 Intake & Output: Intake & Output 01/29/21 01/30/21 01/31/21 02/01/21 23:59 23:59 23:59 23:59 Intake Total 575 1290 Balance 575 1290 - Objective General Appearance: positive: No acute distress, Alert, Other (obese young woman lying on R side in bed, awake, alert, conversant, wearing 02 concentrator) Eyes Bilateral: positive: Normal inspection Respiratory: positive: Chest non-tender, No respiratory distress. negative: Breath sounds nml (bibasilar inspiratory crackles) Cardiovascular: positive: Regular rate & rhythm (by pulse, distant heart sounds (re habitus)) Abdomen: positive: Non-tender, No distention, Other (obese) Skin: positive: Warm, Dry. negative: Diaphoresis Extremities: negative: Pedal edema Neurologic/Psychiatric: positive: Oriented x3, Mood/affect nml - Lab Results Fish Bones: 01/31/21 17:28 01/31/21 17:37 Other Labs: Lab Results x24hrs 02/01/21 02/01/21 02/01/21 Range/Units 11:52 07:51 06:05 WBC (4.8-10.8) x10^3/uL RBC (4.20-5.40) 10^6/uL Hgb (12.0-16.0) g/dL Hct (37.0-47.0) % MCV (81.0-99.0) fL MCH (27.0-31.0) pg MCHC (32.0-36.0) g/dL RDW (12.0-15.0) % Plt Count (130-450) 10^3/uL MPV (7.9-10.8) fL Neut # (Auto) (1.5-6.6) 10^3/uL Lymph # (Auto) (1.5-3.5) 10^3/uL [place] # (Auto) (0.0-1.0) 10^3/uL Eos # (Auto) (0.0-0.7) 10^3/uL Baso # (Auto) (0.0-0.1) 10^3/uL Absolute Nucleated RBC x10^3/uL Nucleated RBC % /100WBC Sodium (135-145) mmol/L Potassium (3.5-5.0) mmol/L Chloride (101-111) mmol/L Carbon Dioxide (21-32) mmol/L Anion Gap (6-13) BUN (6-20) mg/dL Creatinine (0.4-1.0) mg/dL Estimated GFR (MDRD) (>89) Glucose (70-100) mg/dL POC Whole Bld Glucose 292 H 271 H (70 - 100) mg/dL Estimat Average Glucose 183 H (70-100) mg/dL Hemoglobin A1c % 8.0 H (4.27-6.07) % Lactic Acid (0.5-2.2) mmol/L Calcium (8.5-10.3) mg/dL Total Bilirubin (0.2-1.0) mg/dL AST (10-42) IU/L ALT (10-60) IU/L Alkaline Phosphatase (42-121) IU/L Total Protein (6.7-8.2) g/dL Albumin (3.2-5.5) g/dL Globulin (2.1-4.2) g/dL Albumin/Globulin Ratio (1.0-2.2) Lipase (22-51) U/L Serum HCG, Qual Nasal Adenovirus (PCR) Nasal B. parapertussis DNA (PCR) Nasal Coronavir 229E PCR Nasal Coronavir HKU1 PCR Nasal Coronavir NL63 PCR Nasal Coronavir OC43 PCR Nasal Enterovir/Rhinovir PCR Nasal Influenza B PCR Nasal Influenza A PCR Nasal Parainfluen 1 PCR Nasal Parainfluen 2 PCR Nasal Parainfluen 3 PCR Nasal Parainfluen 4 PCR Nasal RSV (PCR) Nasal B.pertussis DNA PCR Nasal C.pneumoniae (PCR) Dimitrios Human Metapneumo PCR Nasal M.pneumoniae (PCR) Nasal SARS-CoV-2 (PCR) 01/31/21 01/31/21 01/31/21 Range/Units 20:52 18:41 18:10 WBC (4.8-10.8) x10^3/uL RBC (4.20-5.40) 10^6/uL Hgb (12.0-16.0) g/dL Hct (37.0-47.0) % MCV (81.0-99.0) fL MCH (27.0-31.0) pg MCHC (32.0-36.0) g/dL RDW (12.0-15.0) % Plt Count (130-450) 10^3/uL MPV (7.9-10.8) fL Neut # (Auto) (1.5-6.6) 10^3/uL Lymph # (Auto) (1.5-3.5) 10^3/uL [place] # (Auto) (0.0-1.0) 10^3/uL Eos # (Auto) (0.0-0.7) 10^3/uL Baso # (Auto) (0.0-0.1) 10^3/uL Absolute Nucleated RBC x10^3/uL Nucleated RBC % /100WBC Sodium (135-145) mmol/L Potassium (3.5-5.0) mmol/L Chloride (101-111) mmol/L Carbon Dioxide (21-32) mmol/L Anion Gap (6-13) BUN (6-20) mg/dL Creatinine (0.4-1.0) mg/dL Estimated GFR (MDRD) (>89) Glucose (70-100) mg/dL POC Whole Bld Glucose 159 H (70 - 100) mg/dL Estimat Average Glucose (70-100) mg/dL Hemoglobin A1c % (4.27-6.07) % Lactic Acid 1.2 (0.5-2.2) mmol/L Calcium (8.5-10.3) mg/dL Total Bilirubin (0.2-1.0) mg/dL AST (10-42) IU/L ALT (10-60) IU/L Alkaline Phosphatase (42-121) IU/L Total Protein (6.7-8.2) g/dL Albumin (3.2-5.5) g/dL Globulin (2.1-4.2) g/dL Albumin/Globulin Ratio (1.0-2.2) Lipase (22-51) U/L Serum HCG, Qual Nasal Adenovirus (PCR) NOT DETECTED Nasal B. parapertussis DNA (PCR) NOT DETECTED Nasal Coronavir 229E PCR NOT DETECTED Nasal Coronavir HKU1 PCR NOT DETECTED Nasal Coronavir NL63 PCR NOT DETECTED Nasal Coronavir OC43 PCR NOT DETECTED Nasal Enterovir/Rhinovir PCR NOT DETECTED Nasal Influenza B PCR NOT DETECTED Nasal Influenza A PCR NOT DETECTED Nasal Parainfluen 1 PCR NOT DETECTED Nasal Parainfluen 2 PCR NOT DETECTED Nasal Parainfluen 3 PCR NOT DETECTED Nasal Parainfluen 4 PCR NOT DETECTED Nasal RSV (PCR) NOT DETECTED Nasal B.pertussis DNA PCR NOT DETECTED Nasal C.pneumoniae (PCR) NOT DETECTED Dimitrios Human Metapneumo PCR NOT DETECTED Nasal M.pneumoniae (PCR) NOT DETECTED Nasal SARS-CoV-2 (PCR) DETECTED A 01/31/21 01/31/21 01/31/21 Range/Units 17:37 17:28 17:28 WBC 3.9 L (4.8-10.8) x10^3/uL RBC 5.07 (4.20-5.40) 10^6/uL Hgb 14.8 (12.0-16.0) g/dL Hct 43.8 (37.0-47.0) % MCV 86.4 (81.0-99.0) fL MCH 29.2 (27.0-31.0) pg MCHC 33.8 (32.0-36.0) g/dL RDW 12.8 (12.0-15.0) % Plt Count 143 (130-450) 10^3/uL MPV 11.9 H (7.9-10.8) fL Neut # (Auto) 2.5 (1.5-6.6) 10^3/uL Lymph # (Auto) 1.1 L (1.5-3.5) 10^3/uL [place] # (Auto) 0.2 (0.0-1.0) 10^3/uL Eos # (Auto) 0.0 (0.0-0.7) 10^3/uL Baso # (Auto) 0.0 (0.0-0.1) 10^3/uL Absolute Nucleated RBC 0.00 x10^3/uL Nucleated RBC % 0.0 /100WBC Sodium 135 (135-145) mmol/L Potassium 3.7 (3.5-5.0) mmol/L Chloride 100 L (101-111) mmol/L Carbon Dioxide 23 (21-32) mmol/L Anion Gap 12.0 (6-13) BUN 9 (6-20) mg/dL Creatinine 0.5 (0.4-1.0) mg/dL Estimated GFR (MDRD) 135 (>89) Glucose 178 H (70-100) mg/dL POC Whole Bld Glucose (70 - 100) mg/dL Estimat Average Glucose (70-100) mg/dL Hemoglobin A1c % (4.27-6.07) % Lactic Acid (0.5-2.2) mmol/L Calcium 9.8 (8.5-10.3) mg/dL Total Bilirubin 0.9 (0.2-1.0) mg/dL AST 44 H (10-42) IU/L ALT 54 (10-60) IU/L Alkaline Phosphatase 73 (42-121) IU/L Total Protein 6.9 (6.7-8.2) g/dL Albumin 3.7 (3.2-5.5) g/dL Globulin 3.2 (2.1-4.2) g/dL Albumin/Globulin Ratio 1.2 (1.0-2.2) Lipase 43 (22-51) U/L Serum HCG, Qual NEGATIVE Nasal Adenovirus (PCR) Nasal B. parapertussis DNA (PCR) Nasal Coronavir 229E PCR Nasal Coronavir HKU1 PCR Nasal Coronavir NL63 PCR Nasal Coronavir OC43 PCR Nasal Enterovir/Rhinovir PCR Nasal Influenza B PCR Nasal Influenza A PCR Nasal Parainfluen 1 PCR Nasal Parainfluen 2 PCR Nasal Parainfluen 3 PCR Nasal Parainfluen 4 PCR Nasal RSV (PCR) Nasal B.pertussis DNA PCR Nasal C.pneumoniae (PCR) Dimitrios Human Metapneumo PCR Nasal M.pneumoniae (PCR) Nasal SARS-CoV-2 (PCR) Assessment/Plan - Problem List (1) COVID-19 virus infection Impression: With hypoxemia. Leukopenia. Unvaccinated. Plan: Inpatient status Day 2/5 Remdesivir Day /Decadron 10 days (got 10 mg dexamethasone in ED) Lovenox 40 mg subcu daily Empiric therapy with Rocephin and azithromycin since there is a focal opacity described on chest x-ray Working on proning/ will try w/ pillows so she tolerates that position 4L NC w/oximizer currently Ceftriaxone /azithro started last night for ? infiltrate Day 2 afebrile (2) Hypoxia Conclusion/Plan: Nasal cannula oxygen via oximizer at this time w/ Sa02 ~ 90. Subjectively feeling a bit better "hoping" not to be intubated See Dr Barney note re: her d/w patient re: Code status and potential intubation (patient needs to let us know if she does not want full rescutation which is our "default" (3) Type 2 diabetes mellitus with complication, with long-term current use of insulin Conclusion/Plan: A1C 8.0 (here) She usually uses Metformin, glimepiride, NPH (all on hold here) and diet. She has been working on losing weight and trying to be better about her diabetes in the last 3 months. BMI 45/ insulin resistant FSBG 159 8p /, 271 4am (after 30 u last pm) 292 8am Getting Lantus twice daily 10 am, 30 pm Sliding scale insulin; got 7 u on low dose correctional so far Decadron >>uncontrolled hyperglycemia Will add 5 u to am lantus>>15 u and 5 u to pm lantus>> 35 u and increase to high dose ssi (from low dose correctional) and reevaluate Based on correctional needs next few days can divide full daily dose she is needing between 50% long acting, and 50 % prandial (4) Hypertension Conclusion/Plan: At this time stable. We will resume her usual lisinopril w/ hold parameters (5) At risk for deep venous thrombosis Conclusion/Plan: Morbidly obese, uses medroxyprogesterone, and is sedentary due to illness. Plan: Lovenox 40 mg subcu on admit increase to 40 u bid morbidly obese vte prophlaxis dose for bmi 45.9 up to chair for meals, ambulate in room
[2021-02-01] MEDS: ACETAMINOPHEN 325 MG TABLET PO PRN (16:19)
[2021-02-01] MEDS: INSULIN GLARGINE 300 UNIT/3 ML PEN SUBQ SCH (21:49)
[2021-02-01] MEDS: SENNA 8.6 MG TABLET PO SCH (21:49)
[2021-02-02] MEDS: PANTOPRAZOLE 40 MG TABLET PO SCH (06:41)
[2021-02-02] MEDS: ACETAMINOPHEN 325 MG TABLET PO PRN (06:41)
[2021-02-02] MEDS: INSULIN ASPART 300 UNIT/3 ML PEN SUBQ SCH ×4 (08:13→22:04)
[2021-02-02] MEDS: INSULIN GLARGINE 300 UNIT/3 ML PEN SUBQ SCH ×2 (08:14→22:05)
[2021-02-02] MEDS: cefTRIAXone 1 GM in SODIUM CHLORIDE 0.9% MINIBAG 100 ML IV SCH (08:24)
[2021-02-02] MEDS: DEXAMETHASONE 4 MG/ML VIAL IVP SCH (08:25)
[2021-02-02] MEDS: lisinopriL 5 MG TABLET PO SCH (08:25)
[2021-02-02] MEDS: CHOLECALCIFEROL 5,000 UNIT CAPSULE PO SCH (08:26)
[2021-02-02] MEDS: ENOXAPARIN 40 MG/0.4 ML SYRINGE SUBQ SCH ×2 (08:26→22:05)
[2021-02-02] MEDS: REMDESIVIR 100MG VIAL 100 MG in SODIUM CHLORIDE 0.9% 100ML 100 ML IV SCH (09:17)
[2021-02-02] MEDS: AZITHROMYCIN INJ 500 MG in SODIUM CHLORIDE 0.9% 250 ML IV SCH (10:04)
--- NOTE | 2021-02-02 17:54 | PROVIDER PROGRESS NOTE ---
Assessment/Plan - Problem List (1) COVID-19 virus infection Assessment/Plan: Continue with Remdesivir, iv Decadron, Lovenox 40 mg subcu daily, empiric therapy with Rocephin and azithromycin since there is a focal opacity described on chest x-ray. I discussed importance proning and she will try it w/ face pillow from RT, so she tolerates that position w/ her oximizer on (2) Hypoxia Conclusion/Plan: She has needed increased settings of oxygen via oximizer to achieve Sa02 ~ 90. See Dr Barney admission note re: her d/w patient about Code status and potential intubation Will add IS and Mucinex (3) Type 2 diabetes mellitus with complication, with long-term current use of insulin Conclusion/Plan: A1C 8.0 (here) She usually uses Metformin, glimepiride, NPH and Diabetic diet. She has been working on losing weight and trying to be better about her diabetes in the last 3 months. Continue bid Lantus and Sliding scale insulin; expect higher glu readings on iv Decadron (4) Hypertension Conclusion/Plan: BP is normal currently without her usual lisinopril Will resume BP med if needed and may avoid JAQUAN-I which could add to a cough. (5) Morbid obeisyt w/ BMI 40-45 Conclusion/Plan: Morbidly obese, uses medroxyprogesterone, and is sedentary due to illness. Lovenox increased to 40 u bid in a morbidly obese pt for vte prophlaxis dose - Current Meds Current Meds: Current Medications Generic Name Dose Route Start Last Admin Trade Name Freq PRN Reason Stop Dose Admin Acetaminophen 650 mg 01/31/21 23:37 02/02/21 06:41 Acetaminophen 325 Mg Tablet PO 650 mg Q4HR PRN Administration Pain or Fever > 38C (100.4F) Cholecalciferol 5,000 unit 02/01/21 11:00 02/02/21 08:26 Cholecalciferol 5,000 Unit Capsule PO 5,000 unit DAILY KECIA Administration Dexamethasone 6 mg 02/01/21 09:00 02/02/21 08:25 Dexamethasone 4 Mg/Ml Vial IVP 6 mg DAILY KECIA Administration Enoxaparin Sodium 40 mg 02/01/21 21:00 02/02/21 08:26 Enoxaparin 40 Mg/0.4 Ml Syringe SUBQ 40 mg BID KECIA Administration Remdesivir 100 mg/ Sodium 100 mls @ 200 mls/hr 02/01/21 09:00 02/02/21 09:50 Chloride IV 02/04/21 09:29 Infused DAILY KECIA Infusion Ceftriaxone Sodium 1 gm/ 100 mls @ 200 mls/hr 01/31/21 20:37 02/02/21 08:55 Sodium Chloride IV Infused DAILY KECIA Infusion Insulin Aspart 3 - 11 unit 02/01/21 17:00 02/02/21 16:59 Insulin Aspart 300 Unit/3 Ml Pen SUBQ 11 unit 0800,1200,1700,2100 KECIA Administration Protocol Insulin Glargine 15 unit 02/02/21 08:00 02/02/21 08:14 Insulin Glargine 300 Unit/3 Ml Pen SUBQ 15 unit QDBREAKFAST KECIA Administration Insulin Glargine 35 unit 02/01/21 21:00 02/01/21 21:49 Insulin Glargine 300 Unit/3 Ml Pen SUBQ 35 unit QPM KECIA Administration Lisinopril 10 mg 02/01/21 09:00 02/02/21 08:25 Lisinopril 5 Mg Tablet PO 10 mg DAILY KECIA Administration Pantoprazole Sodium 40 mg 02/01/21 07:00 02/02/21 06:41 Pantoprazole 40 Mg Tablet PO 40 mg QDAC KECIA Administration Senna 34.4 mg 02/01/21 21:00 02/01/21 21:49 Senna 8.6 Mg Tablet PO 34.4 mg QPM KECIA Administration - Lab Result Fish Bone Diagrams: 02/03/21 09:07 02/03/21 09:07 - Additional Planning My Orders: My Active Orders 02/02/21 09:02 Telemetry- [RC] Q4HR 02/02/21 09:08 Continuous Pulse Oximetry [RC] .cont Subjective - Subjective Patient Reports: Dizzines (Feels dizzy when she has to stand up and walk around the room along with short of breath), Shortness of Breath Objective Vital Signs: Vital Signs - 24 hr 02/01/21 02/01/21 02/01/21 20:46 21:05 22:53 Temperature 37.2 C 37.3 C Heart Rate 94 Heart Rate [ 85 84 Brachial] Respiratory 22 20 22 Rate Blood Pressure [Left Brachial artery] Blood Pressure 116/56 L 111/50 L [Right Brachial artery] O2 Saturation 91 L 91 L 02/02/21 02/02/21 02/02/21 02:00 05:29 06:38 Temperature 36.9 C Heart Rate Heart Rate [ 80 Brachial] Respiratory 20 20 20 Rate Blood Pressure 131/59 H [Left Brachial artery] Blood Pressure [Right Brachial artery] O2 Saturation 92 86 L 96 02/02/21 02/02/21 02/02/21 08:11 08:30 11:38 Temperature 37 C 36.8 C Heart Rate Heart Rate [ 86 89 Brachial] Respiratory 20 Rate Blood Pressure 134/60 H 117/60 [Left Brachial artery] Blood Pressure [Right Brachial artery] O2 Saturation 96 89 L 94 02/02/21 16:16 Temperature 37 C Heart Rate Heart Rate [ 81 Brachial] Respiratory 22 Rate Blood Pressure 119/67 [Left Brachial artery] Blood Pressure [Right Brachial artery] O2 Saturation 93 Oxygen O2 Source HHFNC Oxygen Flow Rate 2 I&O (Last 24 Hrs): Intake and Output Totals x24h 01/31/21 02/01/21 02/02/21 23:59 23:59 23:59 Intake Total 575 1930 1400 Balance 575 1930 1400 General: Alert, Oriented x3 HEENT: Mucous membr. moist/pink Neck: Supple Neuro: Alert, Non Focal Cardiovascular: Regular rate, No murmurs Respiratory: Rales (Up one half way bilat, poor air movement) Abdomen: Soft (Obese with a pannus), No tenderness Extremities: No clubbing, No edema, No tenderness/swelling - Results Results: Laboratory Results WBC 3.9 x10^3/uL (4.8-10.8) L 01/31/21 17:28 RBC 5.07 10^6/uL (4.20-5.40) 01/31/21 17:28 Hgb 14.8 g/dL (12.0-16.0) 01/31/21 17:28 Hct 43.8 % (37.0-47.0) 01/31/21 17:28 MCV 86.4 fL (81.0-99.0) 01/31/21 17:28 MCH 29.2 pg (27.0-31.0) 01/31/21 17:28 MCHC 33.8 g/dL (32.0-36.0) 01/31/21 17:28 RDW 12.8 % (12.0-15.0) 01/31/21 17:28 Plt Count 143 10^3/uL (130-450) 01/31/21 17:28 MPV 11.9 fL (7.9-10.8) H 01/31/21 17:28 Neut # (Auto) 2.5 10^3/uL (1.5-6.6) 01/31/21 17:28 Lymph # (Auto) 1.1 10^3/uL (1.5-3.5) L 01/31/21 17:28 [place] # (Auto) 0.2 10^3/uL (0.0-1.0) 01/31/21 17:28 Eos # (Auto) 0.0 10^3/uL (0.0-0.7) 01/31/21 17:28 Baso # (Auto) 0.0 10^3/uL (0.0-0.1) 01/31/21 17:28 Absolute Nucleated RBC 0.00 x10^3/uL 01/31/21 17:28 Nucleated RBC % 0.0 /100WBC 01/31/21 17:28 Sodium 135 mmol/L (135-145) 01/31/21 17:37 Potassium 3.7 mmol/L (3.5-5.0) 01/31/21 17:37 Chloride 100 mmol/L (101-111) L 01/31/21 17:37 Carbon Dioxide 23 mmol/L (21-32) 01/31/21 17:37 Anion Gap 12.0 (6-13) 01/31/21 17:37 BUN 9 mg/dL (6-20) 01/31/21 17:37 Creatinine 0.5 mg/dL (0.4-1.0) 01/31/21 17:37 Estimated GFR (MDRD) 135 (>89) 01/31/21 17:37 Glucose 178 mg/dL (70-100) H 01/31/21 17:37 POC Whole Bld Glucose 365 mg/dL (70 - 100) H 02/02/21 16:22 Estimat Average Glucose 183 mg/dL (70-100) H 02/01/21 06:05 Hemoglobin A1c % 8.0 % (4.27-6.07) H 02/01/21 06:05 Lactic Acid 1.2 mmol/L (0.5-2.2) 01/31/21 18:10 Calcium 9.8 mg/dL (8.5-10.3) 01/31/21 17:37 Total Bilirubin 0.9 mg/dL (0.2-1.0) 01/31/21 17:37 AST 44 IU/L (10-42) H 01/31/21 17:37 ALT 54 IU/L (10-60) 01/31/21 17:37 Alkaline Phosphatase 73 IU/L (42-121) 01/31/21 17:37 Total Protein 6.9 g/dL (6.7-8.2) 01/31/21 17:37 Albumin 3.7 g/dL (3.2-5.5) 01/31/21 17:37 Globulin 3.2 g/dL (2.1-4.2) 01/31/21 17:37 Albumin/Globulin Ratio 1.2 (1.0-2.2) 01/31/21 17:37 Lipase 43 U/L (22-51) 01/31/21 17:37 Serum HCG, Qual NEGATIVE 01/31/21 17:28 Nasal Adenovirus (PCR) NOT DETECTED 01/31/21 18:41 Nasal B. parapertussis DNA (PCR) NOT DETECTED 01/31/21 18:41 Nasal Coronavir 229E PCR NOT DETECTED 01/31/21 18:41 Nasal Coronavir HKU1 PCR NOT DETECTED 01/31/21 18:41 Nasal Coronavir NL63 PCR NOT DETECTED 01/31/21 18:41 Nasal Coronavir OC43 PCR NOT DETECTED 01/31/21 18:41 Nasal Enterovir/Rhinovir PCR NOT DETECTED 01/31/21 18:41 Nasal Influenza B PCR NOT DETECTED 01/31/21 18:41 Nasal Influenza A PCR NOT DETECTED 01/31/21 18:41 Nasal Parainfluen 1 PCR NOT DETECTED 01/31/21 18:41 Nasal Parainfluen 2 PCR NOT DETECTED 01/31/21 18:41 Nasal Parainfluen 3 PCR NOT DETECTED 01/31/21 18:41 Nasal Parainfluen 4 PCR NOT DETECTED 01/31/21 18:41 Nasal RSV (PCR) NOT DETECTED 09/09/21 18:41 Nasal B.pertussis DNA PCR NOT DETECTED 01/31/21 18:41 Nasal C.pneumoniae (PCR) NOT DETECTED 01/31/21 18:41 Dimitrios Human Metapneumo PCR NOT DETECTED 01/31/21 18:41 Nasal M.pneumoniae (PCR) NOT DETECTED 01/31/21 18:41 Nasal SARS-CoV-2 (PCR) DETECTED A 01/31/21 18:41
[2021-02-02] MEDS: ALBUTEROL 1 PUFF INH PRN (21:31)
[2021-02-02] MEDS: SENNA 8.6 MG TABLET PO SCH ×2 (22:06→22:11)
[2021-02-03] MEDS: PANTOPRAZOLE 40 MG TABLET PO SCH (06:56)
[2021-02-03] MEDS: INSULIN GLARGINE 300 UNIT/3 ML PEN SUBQ SCH (08:20)
[2021-02-03] MEDS: INSULIN ASPART 300 UNIT/3 ML PEN SUBQ SCH ×4 (08:20→21:42)
[2021-02-03] MEDS: cefTRIAXone 1 GM in SODIUM CHLORIDE 0.9% MINIBAG 100 ML IV SCH (08:21)
[2021-02-03] MEDS: DEXAMETHASONE 4 MG/ML VIAL IVP SCH (08:22)
[2021-02-03] MEDS: CHOLECALCIFEROL 5,000 UNIT CAPSULE PO SCH (08:22)
[2021-02-03] MEDS: lisinopriL 5 MG TABLET PO SCH (08:24)
[2021-02-03] MEDS: IBUPROFEN 400 MG TABLET PO PRN (08:43)
[2021-02-03] MEDS: REMDESIVIR 100MG VIAL 100 MG in SODIUM CHLORIDE 0.9% 100ML 100 ML IV SCH (09:27)
[2021-02-03 09:38] LABS: ALBUMIN 3.3 g/dL (3.2-5.5); ALBUMIN/GLOBULIN RATIO 0.9 (1.0-2.2); CALCIUM 9.8 mg/dL (8.5-10.3); CREATININE 0.6 mg/dL (0.4-1.0); MAGNESIUM 1.8 mg/dL (1.7-2.8); POTASSIUM 4.4 mmol/L (3.5-5.0); TOTAL PROTEIN 6.8 g/dL (6.7-8.2)
[2021-02-03 09:56] LABS: BASOPHILS % (AUTO) 0.2 %; EOSINOPHILS # (AUTO) 0.1 10^3/uL (0.0-0.7); EOSINOPHILS % (AUTO) 1.9 %; HCT - HEMATOCRIT 43.8 % (37.0-47.0); LYMPHOCYTES # (AUTO) 1.2 10^3/uL (1.5-3.5); LYMPHOCYTES % (AUTO) 19.5 %; MEAN CORPUSCULAR HEMOGLOBIN 29.4 pg (27.0-31.0); MEAN CORPUSCULAR HGB CONC 34.2 g/dL (32.0-36.0); MEAN CORPUSCULAR VOLUME 85.9 fL (81.0-99.0); MEAN PLATELET VOLUME 12.3 fL (7.9-10.8); MONOCYTES # (AUTO) 0.7 10^3/uL (0.0-1.0); MONOCYTES % (AUTO) 11.1 %; NEUTROPHILS # (AUTO) 4.2 10^3/uL (1.5-6.6); PLT - PLATELET COUNT 255 10^3/uL (130-450); RED CELL DISTRIBUTION WIDTH 12.3 % (12.0-15.0); WHITE BLOOD COUNT 6.2 x10^3/uL (4.8-10.8)
[2021-02-03] MEDS: ALBUTEROL 1 PUFF INH PRN ×3 (10:05→21:00)
[2021-02-03 10:31] LABS: INR 1.3 (0.8-1.2); PT - PROTHROMBIN TIME 14.9 secs (9.9-12.6)
[2021-02-03 11:17] LABS: DIFFERENTIAL COMMENT Y; PLATELET ESTIMATE, MANUAL NORMAL (130-450,000) (NORMAL); PLATELET MORPHOLOGY NORMAL APPEARANCE (NORMAL); RBC MORPHOLOGY (MULTIPLE) NORMAL APPEARANCE (NORMAL); WBC MORPHOLOGY (MULTIPLE) NORMAL APPEARANCE (NORMAL)
[2021-02-03] MEDS: ENOXAPARIN 40 MG/0.4 ML SYRINGE SUBQ SCH ×2 (11:51→21:42)
--- NOTE | 2021-02-03 15:43 | PROVIDER PROGRESS NOTE ---
Assessment/Plan - Problem List (1) Acute respiratory failure with hypoxia Assessment/Plan: Her oxygen needs are continuing to go up: She was up to 90% FiO2 on high flow mask, decreased down to 75% to try and wean today but she desaturates with just standing up, to a saturation of 83% and it takes her more than 5 minutes to even get up to 87% saturation. The underlying cause is the Covid pneumonia. Perhaps there might be underlying obesity hypoventilation syndrome as well. Continue to treat the Covid pneumonia and give suppl O2 (2) COVID-19 virus infection Assessment/Plan: She continues on IV remdesivir daily, IV Decadron, Mucinex, incentive spirometer and oxygen supplemental Continue Isolation (3) Type 2 diabetes mellitus with complication, with long-term current use of insulin Assessment/Plan: Was are reaching greater than 300, this is expected on her Decadron. We will increase the twice daily Lantus dosing, continue with fingerstick checks and sliding scale insulin coverage and meal time insulin (4) Hypertension Qualifiers: Hypertension type: primary hypertension Qualified Code(s): I10 - Essential (primary) hypertension Assessment/Plan: Her BP is normal or even's "soft" today. Her home lisinopril dose has not been started here (5) Morbid obesity with BMI of 40.0-44.9, adult Assessment/Plan: She has been trying to lose weight recently. Continue with carb controlled diet - Current Meds Current Meds: Current Medications Generic Name Dose Route Start Last Admin Trade Name Freq PRN Reason Stop Dose Admin Acetaminophen 650 mg 01/31/21 23:37 02/02/21 06:41 Acetaminophen 325 Mg Tablet PO 650 mg Q4HR PRN Administration Pain or Fever > 38C (100.4F) Albuterol 2 puffs 02/01/21 16:29 02/03/21 15:21 Albuterol 1 Puff INH 2 puffs Q2H PRN Administration Dyspnea Cholecalciferol 5,000 unit 02/01/21 11:00 02/03/21 08:22 Cholecalciferol 5,000 Unit Capsule PO 5,000 unit DAILY KECIA Administration Dexamethasone 6 mg 02/01/21 09:00 02/03/21 08:22 Dexamethasone 4 Mg/Ml Vial IVP 6 mg DAILY KECIA Administration Enoxaparin Sodium 40 mg 02/01/21 21:00 02/03/21 11:51 Enoxaparin 40 Mg/0.4 Ml Syringe SUBQ 40 mg BID KECIA Administration Remdesivir 100 mg/ Sodium 100 mls @ 200 mls/hr 02/01/21 09:00 02/03/21 11:59 Chloride IV 02/04/21 09:29 Infused DAILY KECIA Infusion Ceftriaxone Sodium 1 gm/ 100 mls @ 200 mls/hr 01/31/21 20:37 02/03/21 09:10 Sodium Chloride IV Infused DAILY KECIA Infusion Ibuprofen 400 mg 01/31/21 23:37 02/03/21 08:43 Ibuprofen 400 Mg Tablet PO 400 mg Q6HR PRN Administration PAIN Insulin Aspart 3 - 11 unit 02/01/21 17:00 02/03/21 11:51 Insulin Aspart 300 Unit/3 Ml Pen SUBQ 11 unit 0800,1200,1700,2100 KECIA Administration Protocol Lisinopril 10 mg 02/01/21 09:00 02/03/21 08:24 Lisinopril 5 Mg Tablet PO 10 mg DAILY KECIA Administration Pantoprazole Sodium 40 mg 02/01/21 07:00 02/03/21 06:56 Pantoprazole 40 Mg Tablet PO 40 mg QDAC KECIA Administration Senna 34.4 mg 02/01/21 21:00 02/02/21 22:11 Senna 8.6 Mg Tablet PO 34.4 mg QPM KECIA Administration - Lab Result Fish Bone Diagrams: 02/03/21 09:07 02/03/21 09:07 - Additional Planning My Orders: My Active Orders 02/03/21 21:00 Insulin Glargine [Lantus Solostar] 40 unit SUBQ QPM 02/04/21 05:00 BMP - BASIC METABOLIC PANEL [CHEM] DAILYLAB CBC - COMP BLD CT W/AUTO DIFF [HEME] DAILYLAB HEMOGLOBIN A1c% [CHEM] DAILYLAB 02/04/21 08:00 Insulin Glargine [Lantus Solostar] 25 unit SUBQ QDBREAKFAST 02/05/21 05:00 BMP - BASIC METABOLIC PANEL [CHEM] DAILYLAB CBC - COMP BLD CT W/AUTO DIFF [HEME] DAILYLAB 02/06/21 05:00 BMP - BASIC METABOLIC PANEL [CHEM] DAILYLAB CBC - COMP BLD CT W/AUTO DIFF [HEME] DAILYLAB 02/07/21 05:00 BMP - BASIC METABOLIC PANEL [CHEM] DAILYLAB CBC - COMP BLD CT W/AUTO DIFF [HEME] DAILYLAB Subjective - Subjective Patient Reports: Shortness of Breath (She is noticing more shortness of breath today, less of a cough however.) Objective Vital Signs: Vital Signs - 24 hr 02/02/21 02/02/21 02/02/21 16:16 20:46 21:30 Temperature 37 C 37.2 C Heart Rate 81 Heart Rate [ 81 80 Brachial] Respiratory 22 24 22 Rate Blood Pressure 119/67 142/69 H [Left Brachial artery] O2 Saturation 93 95 02/03/21 02/03/21 02/03/21 04:42 05:08 07:15 Temperature 36.9 C Heart Rate Heart Rate [ 71 Brachial] Respiratory 21 Rate Blood Pressure 107/55 L [Left Brachial artery] O2 Saturation 85 L 95 90 L 02/03/21 02/03/21 02/03/21 09:00 10:18 13:00 Temperature 36.6 C 37.0 C Heart Rate 75 Heart Rate [ 76 80 Brachial] Respiratory 22 16 24 Rate Blood Pressure 125/68 131/64 H [Left Brachial artery] O2 Saturation 96 95 98 02/03/21 13:12 Temperature 36.6 C Heart Rate 75 Heart Rate [ Brachial] Respiratory 16 Rate Blood Pressure [Left Brachial artery] O2 Saturation 90 L Oxygen O2 Source HHFNC Oxygen Flow Rate 2 I&O (Last 24 Hrs): Intake and Output Totals x24h 02/01/21 02/02/21 02/03/21 23:59 23:59 23:59 Intake Total 1930 1800 940 Output Total 300 Balance 1930 1500 940 General: Alert, Oriented x3 HEENT: Mucous membr. moist/pink Neuro: Alert, Non Focal Cardiovascular: Regular rate Respiratory: Other (Not auscultated) Abdomen: Other (Obese with pannus) - Results Results: Laboratory Results WBC 6.2 x10^3/uL (4.8-10.8) 02/03/21 09:07 RBC 5.10 10^6/uL (4.20-5.40) 02/03/21 09:07 Hgb 15.0 g/dL (12.0-16.0) 02/03/21 09:07 Hct 43.8 % (37.0-47.0) 02/03/21 09:07 MCV 85.9 fL (81.0-99.0) 02/03/21 09:07 MCH 29.4 pg (27.0-31.0) 02/03/21 09:07 MCHC 34.2 g/dL (32.0-36.0) 02/03/21 09:07 RDW 12.3 % (12.0-15.0) 02/03/21 09:07 Plt Count 255 10^3/uL (130-450) 02/03/21 09:07 MPV 12.3 fL (7.9-10.8) H 02/03/21 09:07 Neut # (Auto) 4.2 10^3/uL (1.5-6.6) 02/03/21 09:07 Lymph # (Auto) 1.2 10^3/uL (1.5-3.5) L 02/03/21 09:07 Faulk # (Auto) 0.7 10^3/uL (0.0-1.0) 02/03/21 09:07 Eos # (Auto) 0.1 10^3/uL (0.0-0.7) 02/03/21 09:07 Baso # (Auto) 0.0 10^3/uL (0.0-0.1) 02/03/21 09:07 Absolute Nucleated RBC 0.00 x10^3/uL 02/03/21 09:07 Band Neuts % (Manual) Not Reportable 02/03/21 09:07 Abnorm Lymph % (Manual) Not Reportable 02/03/21 09:07 Nucleated RBC % 0.0 /100WBC 02/03/21 09:07 Neutrophils # (Manual) Not Reportable 02/03/21 09:07 Lymphocytes # (Manual) Not Reportable 02/03/21 09:07 Monocytes # (Manual) Not Reportable 02/03/21 09:07 Eosinophils # (Manual) Not Reportable 02/03/21 09:07 Basophils # (Manual) Not Reportable 02/03/21 09:07 Differential Comment Y 02/03/21 09:07 WBC Morphology NORMAL APPEARANCE (NORMAL) 02/03/21 09:07 Platelet Estimate NORMAL (130-450,000) (NORMAL) 02/03/21 09:07 Platelet Morphology NORMAL APPEARANCE (NORMAL) 02/03/21 09:07 RBC Morph Micro Appear NORMAL APPEARANCE (NORMAL) 02/03/21 09:07 PT 14.9 secs (9.9-12.6) H 02/03/21 09:07 INR 1.3 (0.8-1.2) H 02/03/21 09:07 Sodium 134 mmol/L (135-145) L 02/03/21 09:07 Potassium 4.4 mmol/L (3.5-5.0) 02/03/21 09:07 Chloride 98 mmol/L (101-111) L 02/03/21 09:07 Carbon Dioxide 24 mmol/L (21-32) 02/03/21 09:07 Anion Gap 12.0 (6-13) 02/03/21 09:07 BUN 16 mg/dL (6-20) 02/03/21 09:07 Creatinine 0.6 mg/dL (0.4-1.0) 02/03/21 09:07 Estimated GFR (MDRD) 109 (>89) 02/03/21 09:07 Glucose 377 mg/dL (70-100) H 02/03/21 09:07 POC Whole Bld Glucose 350 mg/dL (70 - 100) H 02/03/21 11:48 Estimat Average Glucose 183 mg/dL (70-100) H 02/01/21 06:05 Hemoglobin A1c % 8.0 % (4.27-6.07) H 02/01/21 06:05 Lactic Acid 1.2 mmol/L (0.5-2.2) 01/31/21 18:10 Calcium 9.8 mg/dL (8.5-10.3) 02/03/21 09:07 Magnesium 1.8 mg/dL (1.7-2.8) 02/03/21 09:07 Total Bilirubin 1.0 mg/dL (0.2-1.0) 02/03/21 09:07 AST 23 IU/L (10-42) 02/03/21 09:07 ALT 36 IU/L (10-60) 02/03/21 09:07 Alkaline Phosphatase 72 IU/L (42-121) 02/03/21 09:07 Total Protein 6.8 g/dL (6.7-8.2) 02/03/21 09:07 Albumin 3.3 g/dL (3.2-5.5) 02/03/21 09:07 Globulin 3.5 g/dL (2.1-4.2) 02/03/21 09:07 Albumin/Globulin Ratio 0.9 (1.0-2.2) L 02/03/21 09:07 Lipase 43 U/L (22-51) 01/31/21 17:37 Serum HCG, Qual NEGATIVE 01/31/21 17:28 Nasal Adenovirus (PCR) NOT DETECTED 01/31/21 18:41 Nasal B. parapertussis DNA (PCR) NOT DETECTED 01/31/21 18:41 Nasal Coronavir 229E PCR NOT DETECTED 01/31/21 18:41 Nasal Coronavir HKU1 PCR NOT DETECTED 01/31/21 18:41 Nasal Coronavir NL63 PCR NOT DETECTED 01/31/21 18:41 Nasal Coronavir OC43 PCR NOT DETECTED 01/31/21 18:41 Nasal Enterovir/Rhinovir PCR NOT DETECTED 01/31/21 18:41 Nasal Influenza B PCR NOT DETECTED 01/31/21 18:41 Nasal Influenza A PCR NOT DETECTED 01/31/21 18:41 Nasal Parainfluen 1 PCR NOT DETECTED 01/31/21 18:41 Nasal Parainfluen 2 PCR NOT DETECTED 01/31/21 18:41 Nasal Parainfluen 3 PCR NOT DETECTED 01/31/21 18:41 Nasal Parainfluen 4 PCR NOT DETECTED 01/31/21 18:41 Nasal RSV (PCR) NOT DETECTED 01/31/21 18:41 Nasal B.pertussis DNA PCR NOT DETECTED 01/31/21 18:41 Nasal C.pneumoniae (PCR) NOT DETECTED 01/31/21 18:41 Dimitrios Human Metapneumo PCR NOT DETECTED 01/31/21 18:41 Nasal M.pneumoniae (PCR) NOT DETECTED 01/31/21 18:41 Nasal SARS-CoV-2 (PCR) DETECTED A 01/31/21 18:41
[2021-02-03] MEDS ORDERED: INSULIN GLARGINE 300 UNIT/3 ML PEN SUBQ SCH (21:00)
[2021-02-03] MEDS ORDERED: guaiFENesin 600 MG TABLET PO ONE (21:37)
[2021-02-03] MEDS: guaiFENesin 600 MG TABLET PO SCH (21:42)
[2021-02-03] MEDS: SENNA 8.6 MG TABLET PO SCH (21:42)
[2021-02-04] MEDS ORDERED: LIDOCAINE 2% URO-JET 5 ML SYRINGE UR ONE (04:41)
[2021-02-04] MEDS: ACETAMINOPHEN 325 MG TABLET PO PRN (04:43)
[2021-02-04 05:40] LABS: BASOPHILS % (AUTO) 0.2 %; HCT - HEMATOCRIT 43.7 % (37.0-47.0); HGB - HEMOGLOBIN 15.1 g/dL (12.0-16.0); LYMPHOCYTES % (AUTO) 22.5 %; MEAN CORPUSCULAR HGB CONC 34.6 g/dL (32.0-36.0); MEAN CORPUSCULAR VOLUME 83.9 fL (81.0-99.0); MEAN PLATELET VOLUME 11.6 fL (7.9-10.8); MONOCYTES % (AUTO) 11.6 %; NEUTROPHILS % (AUTO) 65.2 %; PLT - PLATELET COUNT 243 10^3/uL (130-450); RED BLOOD COUNT 5.21 10^6/uL (4.20-5.40); RED CELL DISTRIBUTION WIDTH 12.1 % (12.0-15.0); WHITE BLOOD COUNT 6.5 x10^3/uL (4.8-10.8)
[2021-02-04 05:47] LABS: ABNORMAL LYMPHS % (MANUAL) 0 %; BAND NEUTROPHILS % (MANUAL) 0 %
[2021-02-04 05:48] LABS: CALCIUM 9.8 mg/dL (8.5-10.3); CREATININE 0.5 mg/dL (0.4-1.0); POTASSIUM 4.1 mmol/L (3.5-5.0)
[2021-02-04] MEDS: PANTOPRAZOLE 40 MG TABLET PO SCH (06:03)
[2021-02-04 06:26] LABS: DIFFERENTIAL COMMENT MANUAL DIFFERENTIAL; EOSINOPHILS # (MANUAL) 0.1 10^3/uL (0-0.7); LYMPHOCYTES # (MANUAL) 2.2 10^3/uL (1.5-3.5); LYMPHOCYTES % (MANUAL) 34 %; MONOCYTES # (MANUAL) 0.5 10^3/uL (0.0-1.0); NEUTROPHILS # (MANUAL) 3.7 10^3/uL (1.5-6.6); PLATELET ESTIMATE, MANUAL NORMAL (130-450,000) (NORMAL); RBC MORPHOLOGY (MULTIPLE) NORMAL APPEARANCE (NORMAL)
[2021-02-04] MEDS ORDERED: INSULIN GLARGINE 300 UNIT/3 ML PEN SUBQ SCH (08:00)
[2021-02-04] MEDS: INSULIN ASPART 300 UNIT/3 ML PEN SUBQ SCH ×4 (08:28→21:29)
[2021-02-04] MEDS: DEXAMETHASONE 4 MG/ML VIAL IVP SCH (08:33)
[2021-02-04] MEDS: CHOLECALCIFEROL 5,000 UNIT CAPSULE PO SCH (08:34)
[2021-02-04] MEDS: ENOXAPARIN 40 MG/0.4 ML SYRINGE SUBQ SCH ×2 (08:34→21:28)
[2021-02-04] MEDS: lisinopriL 5 MG TABLET PO SCH (08:34)
[2021-02-04] MEDS: guaiFENesin 600 MG TABLET PO SCH ×2 (08:34→21:28)
[2021-02-04] MEDS: cefTRIAXone 1 GM in SODIUM CHLORIDE 0.9% MINIBAG 100 ML IV SCH (08:35)
[2021-02-04] MEDS: REMDESIVIR 100MG VIAL 100 MG in SODIUM CHLORIDE 0.9% 100ML 100 ML IV SCH (10:00)
[2021-02-04 10:39] LABS: ESTIMATED AVERAGE GLUCOSE 192 mg/dL (70-100); HEMOGLOBIN A1c% 8.3 % (4.27-6.07)
[2021-02-04] MEDS: ALBUTEROL 1 PUFF INH PRN (10:49)
--- NOTE | 2021-02-04 20:46 | PROVIDER PROGRESS NOTE ---
Assessment/Plan - Problem List (1) Acute respiratory failure with hypoxia Assessment/Plan: Her oxygen needs have increased even further, she is now on 90% FiO2 via high flow mask and has been ordered to be at bedrest because even standing to get into a chair causes her severe shortness of breath and takes more than 5 minutes to regain saturations greater than 90% on supplemental oxygen. A Blair has also been inserted so she does not have to get out of bed to go to the toilet or commode. Respiratory therapy is following her closely, indicates that she does not need BiPAP yet. Continue with treating the underlying problem which is the Covid pneumonia. (2) COVID-19 virus infection Assessment/Plan: She is getting daily Remdesivir, IV Decadron, Mucinex, incentive spirometry, as needed inhalers per respiratory therapy and supplemental oxygen. She was not COVID vaccinated, did not want to get vaccinated. In fact, she told the ICU provider that she never even gets the flu vaccine. Continue with droplet isolation (3) Type 2 diabetes mellitus with complication, with long-term current use of insulin Assessment/Plan: Continue with CC diet, Her serum glucose checks are greater than 300 because of needing Decadron. Her NPH twice daily doses are increasing daily and she is on the highest dose sliding scale insulin coverage. (4) Hypertension Qualifiers: Hypertension type: primary hypertension Qualified Code(s): I10 - Essential (primary) hypertension (5) Morbid obesity with BMI of 40.0-44.9, adult Assessment/Plan: History. She has tried to lose weight on her own she states - Current Meds Current Meds: Current Medications Generic Name Dose Route Start Last Admin Trade Name Freq PRN Reason Stop Dose Admin Acetaminophen 650 mg 01/31/21 23:37 02/04/21 04:43 Acetaminophen 325 Mg Tablet PO 650 mg Q4HR PRN Administration Pain or Fever > 38C (100.4F) Albuterol 2 puffs 02/01/21 16:29 02/04/21 10:49 Albuterol 1 Puff INH 2 puffs Q2H PRN Administration Dyspnea Cholecalciferol 5,000 unit 02/01/21 11:00 02/04/21 08:34 Cholecalciferol 5,000 Unit Capsule PO 5,000 unit DAILY [facility]IA Administration Dexamethasone 6 mg 02/01/21 09:00 02/04/21 08:33 Dexamethasone 4 Mg/Ml Vial IVP 6 mg DAILY [facility]IA Administration Enoxaparin Sodium 40 mg 02/01/21 21:00 02/04/21 08:34 Enoxaparin 40 Mg/0.4 Ml Syringe SUBQ 40 mg BID KECIA Administration Guaifenesin 600 mg 02/03/21 21:00 02/04/21 08:34 Guaifenesin 600 Mg Tablet PO 600 mg BID K[facility]IA Administration Ceftriaxone Sodium 1 gm/ 100 mls @ 200 mls/hr 01/31/21 20:37 02/04/21 09:05 Sodium Chloride IV 02/05/21 12:00 Infused DAILY [facility]IA Infusion Ibuprofen 400 mg 01/31/21 23:37 02/03/21 08:43 Ibuprofen 400 Mg Tablet PO 400 mg Q6HR PRN Administration PAIN Insulin Aspart 3 - 11 unit 02/01/21 17:00 02/04/21 17:19 Insulin Aspart 300 Unit/3 Ml Pen SUBQ 11 unit 0800,1200,1700,2100 [facility] Administration Protocol Lisinopril 10 mg 02/01/21 09:00 02/04/21 08:34 Lisinopril 5 Mg Tablet PO 10 mg DAILY [facility] Administration Pantoprazole Sodium 40 mg 02/01/21 07:00 02/04/21 06:03 Pantoprazole 40 Mg Tablet PO 40 mg QDAC [facility]IA Administration Senna 34.4 mg 02/01/21 21:00 02/03/21 21:42 Senna 8.6 Mg Tablet PO 34.4 mg QPM [facility]IA Administration - Lab Result Fish Bone Diagrams: 02/04/21 05:25 02/04/21 05:25 - Additional Planning My Orders: My Active Orders 02/03/21 21:00 guaiFENesin [Mucinex] 600 mg PO BID 02/04/21 21:00 Insulin Glargine [Lantus Solostar] 45 unit SUBQ QPM 02/05/21 05:00 BMP - BASIC METABOLIC PANEL [CHEM] DAILYLAB CBC - COMP BLD CT W/AUTO DIFF [HEME] DAILYLAB 02/05/21 08:00 Insulin Glargine [Lantus Solostar] 30 unit SUBQ QDBREAKFAST 02/06/21 05:00 BMP - BASIC METABOLIC PANEL [CHEM] DAILYLAB CBC - COMP BLD CT W/AUTO DIFF [HEME] DAILYLAB 02/07/21 05:00 BMP - BASIC METABOLIC PANEL [CHEM] DAILYLAB CBC - COMP BLD CT W/AUTO DIFF [HEME] DAILYLAB Subjective - Subjective Patient Reports: Cough (Non-productive), Shortness of Breath Objective Vital Signs: Vital Signs - 24 hr 02/03/21 02/04/21 02/04/21 21:00 00:11 04:33 Temperature 37.1 C 36.6 C Heart Rate 75 Heart Rate [ 86 67 Brachial] Respiratory 20 22 20 Rate Blood Pressure [Left Brachial artery] Blood Pressure 144/74 H 139/75 H [Right Brachial artery] O2 Saturation 94 90 L 02/04/21 02/04/21 02/04/21 08:47 10:50 11:55 Temperature 37.1 C 36.9 C Heart Rate 84 Heart Rate [ 70 76 Brachial] Respiratory 24 22 22 Rate Blood Pressure 117/59 L 125/65 [Left Brachial artery] Blood Pressure [Right Brachial artery] O2 Saturation 86 L 92 02/04/21 17:00 Temperature 37.1 C Heart Rate Heart Rate [ 65 Brachial] Respiratory 24 Rate Blood Pressure 121/58 L [Left Brachial artery] Blood Pressure [Right Brachial artery] O2 Saturation 90 L Oxygen O2 Source HHFNC Oxygen Flow Rate 2 I&O (Last 24 Hrs): Intake and Output Totals x24h 02/02/21 02/03/21 02/04/21 23:59 23:59 23:59 Intake Total 1800 1290 1720 Output Total 300 4150 Balance 1500 1290 -2430 General: Alert, Other (Obese) HEENT: Other (On HF O2) Neck: Supple Neuro: Alert Cardiovascular: Regular rate Respiratory: Other (Not auscultated) Abdomen: Other (Obese) Extremities: No edema - Results Results: Laboratory Results WBC 6.5 x10^3/uL (4.8-10.8) 02/04/21 05:25 RBC 5.21 10^6/uL (4.20-5.40) 02/04/21 05:25 Hgb 15.1 g/dL (12.0-16.0) 02/04/21 05:25 Hct 43.7 % (37.0-47.0) 02/04/21 05:25 MCV 83.9 fL (81.0-99.0) 02/04/21 05:25 MCH 29.0 pg (27.0-31.0) 02/04/21 05:25 MCHC 34.6 g/dL (32.0-36.0) 02/04/21 05:25 RDW 12.1 % (12.0-15.0) 02/04/21 05:25 Plt Count 243 10^3/uL (130-450) 02/04/21 05:25 MPV 11.6 fL (7.9-10.8) H 02/04/21 05:25 Neut # (Auto) Not Reportable 02/04/21 05:25 Lymph # (Auto) Not Reportable 02/04/21 05:25 [place] # (Auto) Not Reportable 02/04/21 05:25 Eos # (Auto) Not Reportable 02/04/21 05:25 Baso # (Auto) Not Reportable 02/04/21 05:25 Absolute Nucleated RBC Not Reportable 02/04/21 05:25 Total Counted 100 02/04/21 05:25 Band Neuts % (Manual) 0 % (0-10) 02/04/21 05:25 Abnorm Lymph % (Manual) 0 % 02/04/21 05:25 Nucleated RBC % Not Reportable 02/04/21 05:25 Neutrophils # (Manual) 3.7 10^3/uL (1.5-6.6) 02/04/21 05:25 Lymphocytes # (Manual) 2.2 10^3/uL (1.5-3.5) 02/04/21 05:25 Monocytes # (Manual) 0.5 10^3/uL (0.0-1.0) 02/04/21 05:25 Eosinophils # (Manual) 0.1 10^3/uL (0-0.7) 02/04/21 05:25 Basophils # (Manual) 0.0 10^3/uL (0-0.1) 02/04/21 05:25 Differential Comment MANUAL DIFFERENTIAL 02/04/21 05:25 WBC Morphology NORMAL APPEARANCE (NORMAL) 02/03/21 09:07 Platelet Estimate NORMAL (130-450,000) (NORMAL) 02/04/21 05:25 Platelet Morphology NORMAL APPEARANCE (NORMAL) 02/03/21 09:07 RBC Morph Micro Appear NORMAL APPEARANCE (NORMAL) 02/04/21 05:25 PT 14.9 secs (9.9-12.6) H 02/03/21 09:07 INR 1.3 (0.8-1.2) H 02/03/21 09:07 Sodium 134 mmol/L (135-145) L 02/04/21 05:25 Potassium 4.1 mmol/L (3.5-5.0) 02/04/21 05:25 Chloride 100 mmol/L (101-111) L 02/04/21 05:25 Carbon Dioxide 25 mmol/L (21-32) 02/04/21 05:25 Anion Gap 9.0 (6-13) 02/04/21 05:25 BUN 18 mg/dL (6-20) 02/04/21 05:25 Creatinine 0.5 mg/dL (0.4-1.0) 02/04/21 05:25 Estimated GFR (MDRD) 135 (>89) 02/04/21 05:25 Glucose 305 mg/dL (70-100) H 02/04/21 05:25 POC Whole Bld Glucose 383 mg/dL (70 - 100) H 02/04/21 17:01 Estimat Average Glucose 192 mg/dL (70-100) H 02/04/21 05:25 Hemoglobin A1c % 8.3 % (4.27-6.07) H 02/04/21 05:25 Lactic Acid 1.2 mmol/L (0.5-2.2) 01/31/21 18:10 Calcium 9.8 mg/dL (8.5-10.3) 02/04/21 05:25 Magnesium 1.8 mg/dL (1.7-2.8) 02/03/21 09:07 Total Bilirubin 1.0 mg/dL (0.2-1.0) 02/03/21 09:07 AST 23 IU/L (10-42) 02/03/21 09:07 ALT 36 IU/L (10-60) 02/03/21 09:07 Alkaline Phosphatase 72 IU/L (42-121) 02/03/21 09:07 Total Protein 6.8 g/dL (6.7-8.2) 02/03/21 09:07 Albumin 3.3 g/dL (3.2-5.5) 02/03/21 09:07 Globulin 3.5 g/dL (2.1-4.2) 02/03/21 09:07 Albumin/Globulin Ratio 0.9 (1.0-2.2) L 02/03/21 09:07 Lipase 43 U/L (22-51) 01/31/21 17:37 Serum HCG, Qual NEGATIVE 01/31/21 17:28 Nasal Adenovirus (PCR) NOT DETECTED 01/31/21 18:41 Nasal B. parapertussis DNA (PCR) NOT DETECTED 01/31/21 18:41 Nasal Coronavir 229E PCR NOT DETECTED 01/31/21 18:41 Nasal Coronavir HKU1 PCR NOT DETECTED 01/31/21 18:41 Nasal Coronavir NL63 PCR NOT DETECTED 01/31/21 18:41 Nasal Coronavir OC43 PCR NOT DETECTED 01/31/21 18:41 Nasal Enterovir/Rhinovir PCR NOT DETECTED 01/31/21 18:41 Nasal Influenza B PCR NOT DETECTED 01/31/21 18:41 Nasal Influenza A PCR NOT DETECTED 01/31/21 18:41 Nasal Parainfluen 1 PCR NOT DETECTED 01/31/21 18:41 Nasal Parainfluen 2 PCR NOT DETECTED 01/31/21 18:41 Nasal Parainfluen 3 PCR NOT DETECTED 01/31/21 18:41 Nasal Parainfluen 4 PCR NOT DETECTED 01/31/21 18:41 Nasal RSV (PCR) NOT DETECTED 01/31/21 18:41 Nasal B.pertussis DNA PCR NOT DETECTED 01/31/21 18:41 Nasal C.pneumoniae (PCR) NOT DETECTED 01/31/21 18:41 Dimitrios Human Metapneumo PCR NOT DETECTED 01/31/21 18:41 Nasal M.pneumoniae (PCR) NOT DETECTED 01/31/21 18:41 Nasal SARS-CoV-2 (PCR) DETECTED A 01/31/21 18:41
[2021-02-04] MEDS: SENNA 8.6 MG TABLET PO SCH (21:28)
[2021-02-04] MEDS: INSULIN GLARGINE 300 UNIT/3 ML PEN SUBQ SCH (21:30)
[2021-02-05] MEDS: PANTOPRAZOLE 40 MG TABLET PO SCH (05:41)
[2021-02-05 06:06] LABS: BASOPHILS % (AUTO) 0.1 %; HCT - HEMATOCRIT 44.7 % (37.0-47.0); HGB - HEMOGLOBIN 15.2 g/dL (12.0-16.0); LYMPHOCYTES % (AUTO) 19.7 %; MEAN CORPUSCULAR HEMOGLOBIN 28.5 pg (27.0-31.0); MEAN CORPUSCULAR VOLUME 83.7 fL (81.0-99.0); MEAN PLATELET VOLUME 11.9 fL (7.9-10.8); MONOCYTES % (AUTO) 9.4 %; NEUTROPHILS % (AUTO) 70.1 %; PLT - PLATELET COUNT 275 10^3/uL (130-450); RED BLOOD COUNT 5.34 10^6/uL (4.20-5.40); WHITE BLOOD COUNT 6.9 x10^3/uL (4.8-10.8)
[2021-02-05 06:17] LABS: CALCIUM 9.8 mg/dL (8.5-10.3); CREATININE 0.5 mg/dL (0.4-1.0); POTASSIUM 4.1 mmol/L (3.5-5.0)
[2021-02-05 06:31] LABS: ABNORMAL LYMPHS % (MANUAL) 0 %; BAND NEUTROPHILS % (MANUAL) 0 %
[2021-02-05 06:35] LABS: DIFFERENTIAL COMMENT MANUAL DIFFERENTIAL; LYMPHOCYTES % (MANUAL) 14 %; MONOCYTES # (MANUAL) 0.7 10^3/uL (0.0-1.0); NEUTROPHILS # (MANUAL) 5.2 10^3/uL (1.5-6.6); PLATELET ESTIMATE, MANUAL NORMAL (130-450,000) (NORMAL); RBC MORPHOLOGY (MULTIPLE) NORMAL APPEARANCE (NORMAL)
--- NOTE | 2021-02-05 07:46 | PROVIDER PROGRESS NOTE ---
Subjective - Prog Note Date Prog Note Date: 02/05/21 - Subjective Pt reports feeling: No change Subjective: slowly increased 02 need overnight. Dropped to 85% sat with movement so michelet put in to avoid dropping her sats. She is on 45 liters or HHFNC She is very clear that she never wants to be intubated. This is different from what she stated on admission. She states that she would consider it if her life depended on it. At this point she tells me that even if her life depended on it, she does not want to be intubated. Current Medications - Current Medications Current Medications: Active Medications Acetaminophen (Acetaminophen 325 Mg Tablet) 650 mg PO Q4HR PRN PRN Reason: Pain or Fever > 38C (100.4F) Last Admin: 02/04/21 04:43 Dose: 650 mg Documented by: Albuterol (Albuterol 1 Puff) 2 puffs INH Q2H PRN PRN Reason: Dyspnea Last Admin: 02/04/21 10:49 Dose: 2 puffs Documented by: Cholecalciferol (Cholecalciferol 5,000 Unit Capsule) 5,000 unit PO DAILY [facility] Last Admin: 02/04/21 08:34 Dose: 5,000 unit Documented by: Dexamethasone (Dexamethasone 4 Mg/Ml Vial) 6 mg IVP DAILY [facility] Last Admin: 02/04/21 08:33 Dose: 6 mg Documented by: Enoxaparin Sodium (Enoxaparin 40 Mg/0.4 Ml Syringe) 40 mg SUBQ BID [facility] Last Admin: 02/04/21 21:28 Dose: 40 mg Documented by: Guaifenesin (Guaifenesin 600 Mg Tablet) 600 mg PO BID [facility]IA Last Admin: 02/04/21 21:28 Dose: 600 mg Documented by: Ceftriaxone Sodium 1 gm/ (Sodium Chloride) 100 mls @ 200 mls/hr IV DAILY KECIA Stop: 02/05/21 12:00 Last Infusion: 02/04/21 09:05 Dose: Infused Documented by: Ibuprofen (Ibuprofen 400 Mg Tablet) 400 mg PO Q6HR PRN PRN Reason: PAIN Last Admin: 02/03/21 08:43 Dose: 400 mg Documented by: Insulin Aspart (Insulin Aspart 300 Unit/3 Ml Pen) 3 - 11 unit SUBQ 0800,1200,1700,2100 [facility]; Protocol Last Admin: 02/04/21 21:29 Dose: 11 unit Documented by: Insulin Glargine (Insulin Glargine 300 Unit/3 Ml Pen) 45 unit SUBQ QPM [facility] Last Admin: 02/04/21 21:30 Dose: 45 unit Documented by: Insulin Glargine (Insulin Glargine 300 Unit/3 Ml Pen) 30 unit SUBQ QDBREAKFAST [facility] Lisinopril (Lisinopril 5 Mg Tablet) 10 mg PO DAILY [facility] Last Admin: 02/04/21 08:34 Dose: 10 mg Documented by: Pantoprazole Sodium (Pantoprazole 40 Mg Tablet) 40 mg PO QDAC [facility] Last Admin: 02/05/21 05:41 Dose: 40 mg Documented by: Polyethylene Glycol (Polyethylene Glycol 3350 17 Gm Packet) 17 gm PO DAILY PRN PRN Reason: Bowel Protocol Senna (Senna 8.6 Mg Tablet) 34.4 mg PO QPM [facility] Last Admin: 02/04/21 21:28 Dose: 34.4 mg Documented by: Alpha Lipoic Acid 200 mg PO TID 04/14/19 Arginine [l-Arginine] 500 mg PO DAILY 04/14/19 Biotin 2,000 mcg PO BID 04/14/19 Cholecalciferol (Vitamin D3) [Vitamin D3] 1,000 unit PO DAILY 04/14/19 Cinnamon Bark [Cinnamon] 500 mg PO DAILY 04/14/19 Folic Acid 0.8 mg PO DAILY 04/14/19 Glimepiride 4 mg PO DAILY 04/14/19 Grape Seed Extract [Meganatural-Bp] 150 mg PO BID 04/14/19 Green Tea [place]if[place] Extract [Green Tea Extract] 300 mg PO DAILY 04/14/19 Insulin Lispro [Humalog] 0 - 60 unit SUBQ QID 04/14/19 Insulin NPH Human Isophane [Humulin N] 60 units SQ DAILY 04/14/19 Krill/Om-3/Dha/Epa/Phospho/Ast [Krill Oil 500 mg Softgel] 2 each PO DAILY 04/14/19 Magnesium 250 mg PO DAILY 04/14/19 Metformin HCl 1,000 mg PO BID 04/14/19 Milk Thistle Seed Extract [Milk Thistle] 175 mg PO BID 04/14/19 Omeprazole 20 mg PO BIDAC 04/14/19 Potassium Gluconate 99 mg PO DAILY 04/14/19 Senna [Senokot] 34.6 mg PO DAILY 04/14/19 Turmeric Root Extract [Turmeric] 500 mg PO TID 04/14/19 Vitamin E (Dl,Tocopheryl Acet) [Vitamin E] 400 unit PO DAILY 04/14/19 inositoL [Inositol] 500 mg PO DAILY 04/14/19 lisinopriL [Lisinopril] 10 mg PO DAILY 04/14/19 Insulin NPH Human [Humulin N] 70 unit SUBQ QPM 02/01/21 Naproxen 500 mg PO BID PRN 02/01/21 Objective - Vital Signs/Intake & Output Reviewed Vital Signs: Yes Vital Signs: Vital Signs x48h Temp Pulse Resp BP BP Pulse Ox 02/05/21 05:00 36.8 C 66 18 122/62 93 02/05/21 00:31 37.1 C 80 20 121/72 85 L Intake & Output: Intake & Output 02/02/21 02/03/21 02/04/21 02/05/21 23:59 23:59 23:59 23:59 Intake Total 1800 1290 1820 50 Output Total 300 4150 1500 Balance 1500 1290 -2330 -1450 - Objective General Appearance: positive: Alert, Other (Moderately overweight/obese white female, sitting up in bed, comfortable speaking to me with no increased respiratory effort. Only become short of breath when she tries to sit up and stand) Eyes Bilateral: positive: PERRL, EOMI ENT: positive: No signs of dehydration Neck: positive: No JVD. negative: Stiff neck Respiratory: positive: Rales, Rhonchi Cardiovascular: positive: Regular rate & rhythm, Tachycardia (If she becomes hypoxic. Rate slows down when at rest and speaking.). negative: Gallop/S4, Friction rub Abdomen: positive: Non-tender, No organomegaly, Nml bowel sounds, No distention Skin: positive: Warm, Dry Extremities: positive: Full ROM, No pedal edema Neurologic/Psychiatric: positive: Oriented x3, CN's nml (2-12), Motor nml - Lab Results Fish Bones: 02/05/21 05:42 02/05/21 05:42 Other Labs: Lab Results x24hrs 02/05/21 02/05/21 02/04/21 Range/Units 05:42 05:42 21:09 WBC 6.9 (4.8-10.8) x10^3/uL RBC 5.34 (4.20-5.40) 10^6/uL Hgb 15.2 (12.0-16.0) g/dL Hct 44.7 (37.0-47.0) % MCV 83.7 (81.0-99.0) fL MCH 28.5 (27.0-31.0) pg MCHC 34.0 (32.0-36.0) g/dL RDW 12.0 (12.0-15.0) % Plt Count 275 (130-450) 10^3/uL MPV 11.9 H (7.9-10.8) fL Neut # (Auto) Not Reportable Lymph # (Auto) Not Reportable [place] # (Auto) Not Reportable Eos # (Auto) Not Reportable Baso # (Auto) Not Reportable Absolute Nucleated RBC Not Reportable Total Counted 100 Band Neuts % (Manual) 0 (0 - 10) % Abnorm Lymph % (Manual) 0 % Nucleated RBC % Not Reportable Neutrophils # (Manual) 5.2 (1.5-6.6) 10^3/uL Lymphocytes # (Manual) 1.0 L (1.5-3.5) 10^3/uL Monocytes # (Manual) 0.7 (0.0-1.0) 10^3/uL Eosinophils # (Manual) 0.0 (0-0.7) 10^3/uL Basophils # (Manual) 0.0 (0-0.1) 10^3/uL Differential Comment MANUAL DIFFERENTIAL Platelet Estimate NORMAL (130-450,000) (NORMAL) RBC Morph Micro Appear NORMAL APPEARANCE (NORMAL) Sodium 133 L (135-145) mmol/L Potassium 4.1 (3.5-5.0) mmol/L Chloride 98 L (101-111) mmol/L Carbon Dioxide 24 (21-32) mmol/L Anion Gap 11.0 (6-13) BUN 16 (6-20) mg/dL Creatinine 0.5 (0.4-1.0) mg/dL Estimated GFR (MDRD) 135 (>89) Glucose 322 H (70-100) mg/dL POC Whole Bld Glucose 335 H (70 - 100) mg/dL Estimat Average Glucose (70-100) mg/dL Hemoglobin A1c % (4.27-6.07) % Calcium 9.8 (8.5-10.3) mg/dL 02/04/21 02/04/21 02/04/21 Range/Units 17:01 11:42 08:23 WBC (4.8-10.8) x10^3/uL RBC (4.20-5.40) 10^6/uL Hgb (12.0-16.0) g/dL Hct (37.0-47.0) % MCV (81.0-99.0) fL MCH (27.0-31.0) pg MCHC (32.0-36.0) g/dL RDW (12.0-15.0) % Plt Count (130-450) 10^3/uL MPV (7.9-10.8) fL Neut # (Auto) Lymph # (Auto) [place] # (Auto) Eos # (Auto) Baso # (Auto) Absolute Nucleated RBC Total Counted Band Neuts % (Manual) (0 - 10) % Abnorm Lymph % (Manual) % Nucleated RBC % Neutrophils # (Manual) (1.5-6.6) 10^3/uL Lymphocytes # (Manual) (1.5-3.5) 10^3/uL Monocytes # (Manual) (0.0-1.0) 10^3/uL Eosinophils # (Manual) (0-0.7) 10^3/uL Basophils # (Manual) (0-0.1) 10^3/uL Differential Comment Platelet Estimate (NORMAL) RBC Morph Micro Appear (NORMAL) Sodium (135-145) mmol/L Potassium (3.5-5.0) mmol/L Chloride (101-111) mmol/L Carbon Dioxide (21-32) mmol/L Anion Gap (6-13) BUN (6-20) mg/dL Creatinine (0.4-1.0) mg/dL Estimated GFR (MDRD) (>89) Glucose (70-100) mg/dL POC Whole Bld Glucose 383 H 348 H 279 H (70 - 100) mg/dL Estimat Average Glucose (70-100) mg/dL Hemoglobin A1c % (4.27-6.07) % Calcium (8.5-10.3) mg/dL 02/04/21 Range/Units 05:25 WBC (4.8-10.8) x10^3/uL RBC (4.20-5.40) 10^6/uL Hgb (12.0-16.0) g/dL Hct (37.0-47.0) % MCV (81.0-99.0) fL MCH (27.0-31.0) pg MCHC (32.0-36.0) g/dL RDW (12.0-15.0) % Plt Count (130-450) 10^3/uL MPV (7.9-10.8) fL Neut # (Auto) Lymph # (Auto) [place] # (Auto) Eos # (Auto) Baso # (Auto) Absolute Nucleated RBC Total Counted Band Neuts % (Manual) (0 - 10) % Abnorm Lymph % (Manual) % Nucleated RBC % Neutrophils # (Manual) (1.5-6.6) 10^3/uL Lymphocytes # (Manual) (1.5-3.5) 10^3/uL Monocytes # (Manual) (0.0-1.0) 10^3/uL Eosinophils # (Manual) (0-0.7) 10^3/uL Basophils # (Manual) (0-0.1) 10^3/uL Differential Comment Platelet Estimate (NORMAL) RBC Morph Micro Appear (NORMAL) Sodium (135-145) mmol/L Potassium (3.5-5.0) mmol/L Chloride (101-111) mmol/L Carbon Dioxide (21-32) mmol/L Anion Gap (6-13) BUN (6-20) mg/dL Creatinine (0.4-1.0) mg/dL Estimated GFR (MDRD) (>89) Glucose (70-100) mg/dL POC Whole Bld Glucose (70 - 100) mg/dL Estimat Average Glucose 192 H (70-100) mg/dL Hemoglobin A1c % 8.3 H (4.27-6.07) % Calcium (8.5-10.3) mg/dL ABX Reporting Has patient been on IV antibiotics over the past 48 hours?: Yes Assessment/Plan - Problem List (1) Acute respiratory failure with hypoxia Impression: Her oxygen needs wax and wane. However she still requires anywhere between 70 to 90% high flow mask. As long she is still, not getting out of bed, she is stable. She has been ordered to be at bedrest because even standing to get into a chair causes her severe shortness of breath and takes more than 5 minutes to regain saturations greater than 90% on supplemental oxygen. A Blair has also been inserted so she does not have to get out of bed to go to the toilet or commode. Respiratory therapy is following her closely, indicates that she does not need BiPAP yet. I am concerned enough that if she decompensates it will be quick, as such I have transferred her to ICU. She is clear that while she will use BiPAP she refused intubation even if it means . She has already let her family know this. Continue with treating the underlying problem which is the Covid pneumonia. (2) COVID-19 virus infection Assessment/Plan: Completed Remdesivir 02/04 IV Decadronwill be for 10 days Mucinex, incentive spirometry, will continue as needed inhalers per respiratory therapy and supplemental oxygen. She was not COVID vaccinated, did not want to get vaccinated. In fact, she told the ICU provider that she never even gets the flu vaccine. Continue with droplet isolation (3) Type 2 diabetes mellitus with complication, with long-term current use of insulin Assessment/Plan: Continue with CC diet, Her serum glucose checks are greater than 300 because of needing Decadron. Her lantus twice daily doses are increasing daily and she is on the highest dose sliding scale insulin coverage. For today I have increased her lantus dosing and the fixed nutritional doses. (4) Hypertension Qualifiers: Hypertension type: primary hypertension Qualified Code(s): I10 - Essential (primary) hypertension So far she has been controlled and at goal with her home lisinopril (5) Morbid obesity with BMI of 40.0-44.9, adult Assessment/Plan: History. She has tried to lose weight on her own
[2021-02-05] MEDS ORDERED: INSULIN GLARGINE 300 UNIT/3 ML PEN SUBQ SCH (08:00)
[2021-02-05] MEDS: ALBUTEROL 1 PUFF INH PRN ×3 (08:41→21:28)
[2021-02-05] MEDS: INSULIN ASPART 300 UNIT/3 ML PEN SUBQ SCH ×6 (08:42→21:23)
[2021-02-05] MEDS: ENOXAPARIN 40 MG/0.4 ML SYRINGE SUBQ SCH ×2 (08:44→21:22)
[2021-02-05] MEDS: DEXAMETHASONE 4 MG/ML VIAL IVP SCH (08:44)
[2021-02-05] MEDS: cefTRIAXone 1 GM in SODIUM CHLORIDE 0.9% MINIBAG 100 ML IV SCH (08:44)
[2021-02-05] MEDS: guaiFENesin 600 MG TABLET PO SCH ×2 (08:45→21:23)
[2021-02-05] MEDS: CHOLECALCIFEROL 5,000 UNIT CAPSULE PO SCH (08:45)
[2021-02-05] MEDS: lisinopriL 5 MG TABLET PO SCH (08:45)
[2021-02-05] MEDS: SENNA 8.6 MG TABLET PO SCH (21:22)
[2021-02-05] MEDS: INSULIN GLARGINE 300 UNIT/3 ML PEN SUBQ SCH (21:23)
[2021-02-05] MEDS ORDERED: MAGNESIUM HYDROXIDE 2,400 MG/30 ML UDC PO ONE (23:10)
[2021-02-06 05:16] LABS: BASOPHILS % (AUTO) 0.3 %; HCT - HEMATOCRIT 46.4 % (37.0-47.0); HGB - HEMOGLOBIN 15.5 g/dL (12.0-16.0); LYMPHOCYTES # (AUTO) 1.5 10^3/uL (1.5-3.5); LYMPHOCYTES % (AUTO) 18.9 %; MEAN CORPUSCULAR HEMOGLOBIN 28.2 pg (27.0-31.0); MEAN CORPUSCULAR HGB CONC 33.4 g/dL (32.0-36.0); MEAN CORPUSCULAR VOLUME 84.4 fL (81.0-99.0); MEAN PLATELET VOLUME 11.7 fL (7.9-10.8); MONOCYTES # (AUTO) 0.6 10^3/uL (0.0-1.0); MONOCYTES % (AUTO) 8.1 %; NEUTROPHILS # (AUTO) 5.6 10^3/uL (1.5-6.6); NEUTROPHILS % (AUTO) 71.8 %; PLT - PLATELET COUNT 307 10^3/uL (130-450); WHITE BLOOD COUNT 7.8 x10^3/uL (4.8-10.8)
[2021-02-06 05:22] LABS: CALCIUM 9.9 mg/dL (8.5-10.3); CREATININE 0.5 mg/dL (0.4-1.0); POTASSIUM 4.1 mmol/L (3.5-5.0)
[2021-02-06] MEDS: PANTOPRAZOLE 40 MG TABLET PO SCH (06:25)
--- NOTE | 2021-02-06 07:37 | PROVIDER PROGRESS NOTE ---
Objective - Vital Signs/Intake & Output Vital Signs: Vital Signs x48h Temp Pulse Pulse Resp BP BP Pulse Ox 02/06/21 06:15 56 L 24 02/06/21 06:10 52 L 25 H 02/06/21 06:05 58 L 26 H 02/06/21 06:01 63 24 147/90 H 02/06/21 06:00 58 L 23 02/06/21 05:55 66 21 02/06/21 05:50 82 20 02/06/21 05:45 72 24 02/06/21 05:40 64 24 02/06/21 05:35 63 24 02/06/21 05:30 59 L 24 02/06/21 05:25 59 L 26 H 02/06/21 05:20 64 24 02/06/21 05:15 62 23 02/06/21 05:10 67 23 02/06/21 05:05 69 13 02/06/21 05:01 73 22 132/64 H 02/06/21 05:00 73 72 12 132/64 H 92 02/06/21 04:55 65 12 02/06/21 04:50 81 17 02/06/21 04:45 74 23 02/06/21 04:40 76 16 02/06/21 04:35 63 26 H 02/06/21 04:30 62 26 H 02/06/21 04:25 60 24 02/06/21 04:20 62 27 H 02/06/21 04:15 64 32 H 02/06/21 04:10 60 27 H 02/06/21 04:05 65 26 H 02/06/21 04:01 60 27 H 158/105 H 02/06/21 04:00 59 L 25 H 02/06/21 03:55 69 23 02/06/21 03:50 71 25 H 02/06/21 03:45 96 22 02/06/21 03:40 67 23 02/06/21 03:35 61 25 H 02/06/21 03:30 64 22 02/06/21 03:25 61 25 H 02/06/21 03:20 67 21 02/06/21 03:15 63 18 02/06/21 03:10 62 21 02/06/21 03:05 61 24 02/06/21 03:01 59 L 23 128/58 L 02/06/21 03:00 59 L 23 02/06/21 02:55 60 23 02/06/21 02:50 67 21 02/06/21 02:45 102 H 20 02/06/21 02:40 64 24 02/06/21 02:35 55 L 22 02/06/21 02:30 56 L 22 02/06/21 02:05 56 L 25 H 02/06/21 02:01 58 L 24 127/61 02/06/21 02:00 56 L 23 02/06/21 01:55 61 29 H 02/06/21 01:50 64 24 02/06/21 01:45 72 25 H 02/06/21 01:40 66 25 H 02/06/21 01:35 64 25 H 02/06/21 01:30 66 25 H 02/06/21 01:25 60 25 H 02/06/21 01:20 66 24 02/06/21 01:15 65 29 H 02/06/21 01:10 63 25 H 02/06/21 01:05 66 26 H 02/06/21 01:00 36.5 C 72 66 24 115/61 95 02/06/21 00:55 74 29 H 02/06/21 00:50 63 27 H 02/06/21 00:45 61 27 H 02/06/21 00:40 59 L 26 H 02/06/21 00:35 68 26 H 02/06/21 00:30 68 26 H 02/06/21 00:25 62 27 H 02/06/21 00:20 70 28 H 02/06/21 00:15 68 28 H 02/06/21 00:10 69 26 H 02/06/21 00:05 72 27 H 02/06/21 00:01 71 29 H 115/61 02/06/21 00:00 70 27 H 02/05/21 23:55 73 22 02/05/21 23:50 73 27 H 02/05/21 23:45 71 27 H 02/05/21 23:40 69 23 02/05/21 23:35 65 32 H Intake & Output: Intake & Output 02/03/21 02/04/21 02/05/21 02/06/21 23:59 23:59 23:59 23:59 Intake Total 1290 1820 2560 Output Total 4150 45 625 Balance 0120 -5730 -8881 -625 - Lab Results Fish Bones: 02/06/21 04:55 02/06/21 04:46 Other Labs: Lab Results x24hrs 02/06/21 02/06/21 02/05/21 Range/Units 04:55 04:46 20:54 WBC 7.8 (4.8-10.8) x10^3/uL RBC 5.50 H (4.20-5.40) 10^6/uL Hgb 15.5 (12.0-16.0) g/dL Hct 46.4 (37.0-47.0) % MCV 84.4 (81.0-99.0) fL MCH 28.2 (27.0-31.0) pg MCHC 33.4 (32.0-36.0) g/dL RDW 12.0 (12.0-15.0) % Plt Count 307 (130-450) 10^3/uL MPV 11.7 H (7.9-10.8) fL Neut # (Auto) 5.6 (1.5-6.6) 10^3/uL Lymph # (Auto) 1.5 (1.5-3.5) 10^3/uL [place] # (Auto) 0.6 (0.0-1.0) 10^3/uL Eos # (Auto) 0.0 (0.0-0.7) 10^3/uL Baso # (Auto) 0.0 (0.0-0.1) 10^3/uL Absolute Nucleated RBC 0.00 x10^3/uL Nucleated RBC % 0.0 /100WBC Sodium 134 L (135-145) mmol/L Potassium 4.1 (3.5-5.0) mmol/L Chloride 98 L (101-111) mmol/L Carbon Dioxide 26 (21-32) mmol/L Anion Gap 10.0 (6-13) BUN 17 (6-20) mg/dL Creatinine 0.5 (0.4-1.0) mg/dL Estimated GFR (MDRD) 135 (>89) Glucose 299 H (70-100) mg/dL POC Whole Bld Glucose 371 H (70 - 100) mg/dL Calcium 9.9 (8.5-10.3) mg/dL 0902/05/21 02/05/21 Range/Units 17:20 11:27 08:04 WBC (4.8-10.8) x10^3/uL RBC (4.20-5.40) 10^6/uL Hgb (12.0-16.0) g/dL Hct (37.0-47.0) % MCV (81.0-99.0) fL MCH (27.0-31.0) pg MCHC (32.0-36.0) g/dL RDW (12.0-15.0) % Plt Count (130-450) 10^3/uL MPV (7.9-10.8) fL Neut # (Auto) (1.5-6.6) 10^3/uL Lymph # (Auto) (1.5-3.5) 10^3/uL [place] # (Auto) (0.0-1.0) 10^3/uL Eos # (Auto) (0.0-0.7) 10^3/uL Baso # (Auto) (0.0-0.1) 10^3/uL Absolute Nucleated RBC x10^3/uL Nucleated RBC % /100WBC Sodium (135-145) mmol/L Potassium (3.5-5.0) mmol/L Chloride (101-111) mmol/L Carbon Dioxide (21-32) mmol/L Anion Gap (6-13) BUN (6-20) mg/dL Creatinine (0.4-1.0) mg/dL Estimated GFR (MDRD) (>89) Glucose (70-100) mg/dL POC Whole Bld Glucose 382 H 383 H 312 H (70 - 100) mg/dL Calcium (8.5-10.3) mg/dL Assessment/Plan - Problem List (1) Acute respiratory failure with hypoxia Impression: She had required increasing oxygen delivery to maintain O2 sats above 90%. By 04 February she was requiring up to 90% high flow mask. Every time she moved such as to get out of bed to go to the bathroom, her O2 sats would drop into the 80s. Would take more than 5 minutes to regain saturations greater than 90%. We inserted a Blair so that she did not have to get out of bed for urination. Yesterday she was consistently requiring anywhere between 70 to 90% with easy desaturation. As such I transferred to ICU. She let me though that while she is willing to consider BiPAP she adamantly refuses intubation. We are to let her go. We will continue to support her hypoxia until it resolves. With the caveat of no intubation. (2) COVID-19 virus infection Assessment/Plan: Completed Remdesivir 02/04 IV Decadron will be for 10 days and will complete 02/09. Mucinex, incentive spirometry, will continue as needed inhalers per respiratory therapy and supplemental oxygen. She was not COVID vaccinated, did not want to get vaccinated. Continue with droplet isolation (3) Type 2 diabetes mellitus with complication, with long-term current use of insulin Assessment/Plan: Continue with CC diet, Her serum glucose checks are greater than 300 because of needing Decadron. She is on Lantus 40 units in the morning, 45 units at night, NovoLog 10 units with meals plus high-dose sliding scale. February 04 she was 279, 348, 383, 335. February 05 she was 312, 383, 382 and 371. This morning she is 299 Plan: Watch glucose carefully and adjust her insulin. Today I will add 5 units to both doses of lantus (4) Hypertension Qualifiers: Hypertension type: primary hypertension Qualified Code(s): I10 - Essential (primary) hypertension So far she has been controlled and at goal with her home lisinopril (5) Morbid obesity with BMI of 40.0-44.9, adult Assessment/Plan: History. She has tried to lose weight on her own
[2021-02-06] MEDS ORDERED: INSULIN GLARGINE 300 UNIT/3 ML PEN SUBQ SCH (08:00)
[2021-02-06] MEDS: INSULIN ASPART 300 UNIT/3 ML PEN SUBQ SCH ×7 (08:47→20:53)
[2021-02-06] MEDS: INSULIN GLARGINE 300 UNIT/3 ML PEN SUBQ SCH ×2 (08:50→20:53)
[2021-02-06] MEDS: CHOLECALCIFEROL 5,000 UNIT CAPSULE PO SCH (08:53)
[2021-02-06] MEDS: DEXAMETHASONE 4 MG/ML VIAL IVP SCH (08:53)
[2021-02-06] MEDS: ENOXAPARIN 40 MG/0.4 ML SYRINGE SUBQ SCH ×2 (08:54→21:11)
[2021-02-06] MEDS: lisinopriL 5 MG TABLET PO SCH (08:58)
[2021-02-06] MEDS: guaiFENesin 600 MG TABLET PO SCH ×2 (09:03→21:11)
[2021-02-06] MEDS: ALBUTEROL 1 PUFF INH PRN ×3 (09:05→20:50)
[2021-02-06] MEDS ORDERED: INSULIN ASPART 300 UNIT/3 ML PEN SUBQ ONE (17:52)
[2021-02-06] MEDS: SENNA 8.6 MG TABLET PO SCH (21:11)
[2021-02-07 06:02] LABS: BASOPHILS % (AUTO) 0.1 %; HCT - HEMATOCRIT 45.8 % (37.0-47.0); HGB - HEMOGLOBIN 15.9 g/dL (12.0-16.0); LYMPHOCYTES # (AUTO) 1.7 10^3/uL (1.5-3.5); LYMPHOCYTES % (AUTO) 19.1 %; MEAN CORPUSCULAR HEMOGLOBIN 29.2 pg (27.0-31.0); MEAN CORPUSCULAR HGB CONC 34.7 g/dL (32.0-36.0); MEAN CORPUSCULAR VOLUME 84.2 fL (81.0-99.0); MEAN PLATELET VOLUME 12.1 fL (7.9-10.8); MONOCYTES # (AUTO) 0.8 10^3/uL (0.0-1.0); MONOCYTES % (AUTO) 8.9 %; NEUTROPHILS # (AUTO) 6.1 10^3/uL (1.5-6.6); NEUTROPHILS % (AUTO) 70.5 %; PLT - PLATELET COUNT 337 10^3/uL (130-450); RED BLOOD COUNT 5.44 10^6/uL (4.20-5.40); RED CELL DISTRIBUTION WIDTH 12.1 % (12.0-15.0); WHITE BLOOD COUNT 8.7 x10^3/uL (4.8-10.8)
[2021-02-07 06:11] LABS: CALCIUM 10.2 mg/dL (8.5-10.3); CREATININE 0.5 mg/dL (0.4-1.0)
[2021-02-07] MEDS: PANTOPRAZOLE 40 MG TABLET PO SCH (06:42)
[2021-02-07] MEDS: INSULIN ASPART 300 UNIT/3 ML PEN SUBQ SCH ×7 (07:54→20:50)
[2021-02-07] MEDS: INSULIN GLARGINE 300 UNIT/3 ML PEN SUBQ SCH ×2 (07:55→20:48)
[2021-02-07] MEDS: ALBUTEROL 1 PUFF INH PRN ×2 (08:00→21:50)
[2021-02-07] MEDS: DEXAMETHASONE 4 MG/ML VIAL IVP SCH (08:15)
[2021-02-07] MEDS: ENOXAPARIN 40 MG/0.4 ML SYRINGE SUBQ SCH ×2 (08:15→20:46)
[2021-02-07] MEDS: lisinopriL 5 MG TABLET PO SCH (08:17)
[2021-02-07] MEDS: guaiFENesin 600 MG TABLET PO SCH ×2 (08:17→20:47)
[2021-02-07] MEDS: CHOLECALCIFEROL 5,000 UNIT CAPSULE PO SCH (08:17)
[2021-02-07] MEDS: ACETAMINOPHEN 325 MG TABLET PO PRN (08:18)
[2021-02-07] MEDS: IBUPROFEN 400 MG TABLET PO PRN (12:21)
--- NOTE | 2021-02-07 15:48 | PROVIDER PROGRESS NOTE ---
Progress Note February 07, 2021 3:39 PM Subjective: She is comfortable in her room. She is tolerating her episodes of hypoxemia well. For instance getting up to go to the bathroom and sit back down in her chair in her room resulted in O2 sat of 77% when she was at an 80% high flow nasal cannula. She then recovered within 2 to 3 minutes. She is eating her food. Denies chest pain, palpitations, shortness of breath. She is just really tired of being in his room and in isolation. Medications are Tylenol, albuterol, vitamin D3, Decadron, Lovenox, Mucinex, Motrin, NovoLog 10 units before meals, Lantus 45 units in the morning, 50 units in the evening, sliding scale NovoLog before meals, Zestril, pantoprazole, MiraLAX, and Senokot. Objective Temperature 36.9, pulse 89, blood pressure 117/57, respirations 22. 70% FiO2, 30 L, 92% saturated. 5 foot 6 inch white female who weighs 129 kg. Neck is supple, shotty adenopathy, no bruits Fine crackles in the mid lung bases. Diminished breath sounds at the bases. No tachypnea or increased respiratory effort unless she gets up to move to go to the bathroom or to sit in a chair. Otherwise she is comfortable. Can complete full sentences. Regular rate and rhythm. Abdomen is obese, soft, nontender. Extremities are warm, trace edema Neurologically she is alert, oriented to person place and time. Lucid speech. No focal deficits. Today's BMP is normal except for chloride of 100. Random glucose 223 Glucose today has been 165, 258 White cell count 8.7, hemoglobin 15.9, platelets 337 Assessment/plan: 1. Acute respiratory failure with hypoxia. Transfer to ICU because of tenuous respiratory status. Today she appears to stabilize and is slowly going down her oxygen needs. Her wishes to be DO NOT INTUBATE are being respected. 2. COVID-19 virus infection. Completed remdesivir February 04. Today is day 8 of Decadron. She will complete 10 days. Mucinex, incentive spirometry contin ue. 3. Type 2 diabetes mellitus with complication, with long-term use of insulin Decadron has decompensated her glucose control. Yesterday increased her breakfast from 40-45, and her nighttime from 45-50. She is on 10 units with meals. Increase Lantus to 50 twice daily, and NovoLog to 12 units with meals. 4. Hypertension. Blood pressure is controlled at this time with Zestril 10 mg daily.
[2021-02-07] MEDS: SENNA 8.6 MG TABLET PO SCH (20:48)
[2021-02-08] MEDS: PANTOPRAZOLE 40 MG TABLET PO SCH (07:09)
--- NOTE | 2021-02-08 07:25 | PROVIDER PROGRESS NOTE ---
Subjective - Prog Note Date Prog Note Date: 02/08/21 Prog Note Time: 07:24 - Subjective Subjective: she feels good. sob is stable. able to walk in room but does desat. EAting her food. Denies cp, leg pain, calf pain. But she has been sitting in her chair for over and hour and feels lightheaded. no GORDON, no change in vision, no nausea. Like she is looks thru a Kaladiscope. BP is now 80 systolic as she sits. Glucose is 151. In reviewing her blood pressures, she has varied over the last 72 hours. She has been as high as 132-140. And down to 105 then back up to 96. Since midnight she has been low all through the night. And this morning she was given lisinopril 10 mg. Current Medications - Current Medications Current Medications: Active Medications Acetaminophen (Acetaminophen 325 Mg Tablet) 650 mg PO Q4HR PRN PRN Reason: Pain or Fever > 38C (100.4F) Last Admin: 02/07/21 08:18 Dose: 650 mg Documented by: Albuterol (Albuterol 1 Puff) 2 puffs INH Q2H PRN PRN Reason: Dyspnea Last Admin: 02/07/21 21:50 Dose: 2 puffs Documented by: Cholecalciferol (Cholecalciferol 5,000 Unit Capsule) 5,000 unit PO DAILY [facility] Last Admin: 02/07/21 08:17 Dose: 5,000 unit Documented by: Dexamethasone (Dexamethasone 4 Mg/Ml Vial) 6 mg IVP DAILY [facility] Stop: 02/09/21 09:01 Last Admin: 02/07/21 08:15 Dose: 6 mg Documented by: Enoxaparin Sodium (Enoxaparin 40 Mg/0.4 Ml Syringe) 40 mg SUBQ BID [facility] Last Admin: 02/07/21 20:46 Dose: 40 mg Documented by: Guaifenesin (Guaifenesin 600 Mg Tablet) 600 mg PO BID [facility] Last Admin: 02/07/21 20:47 Dose: 600 mg Documented by: Ibuprofen (Ibuprofen 400 Mg Tablet) 400 mg PO Q6HR PRN PRN Reason: PAIN Last Admin: 02/07/21 12:21 Dose: 400 mg Documented by: Insulin Aspart (Insulin Aspart 300 Unit/3 Ml Pen) 3 - 11 unit SUBQ 0800,1200,1700,2100 [facility]; Protocol Last Admin: 02/07/21 20:50 Dose: 11 unit Documented by: Insulin Aspart (Insulin Aspart 300 Unit/3 Ml Pen) 12 unit SUBQ TIDWM [facility] Last Admin: 02/07/21 16:58 Dose: 12 unit Documented by: Insulin Glargine (Insulin Glargine 300 Unit/3 Ml Pen) 50 unit SUBQ QPM [facility] Last Admin: 02/07/21 20:48 Dose: 50 unit Documented by: Insulin Glargine (Insulin Glargine 300 Unit/3 Ml Pen) 50 unit SUBQ QDBREAKFAST [facility] Lisinopril (Lisinopril 5 Mg Tablet) 10 mg PO DAILY [facility] Last Admin: 02/07/21 08:17 Dose: 10 mg Documented by: Pantoprazole Sodium (Pantoprazole 40 Mg Tablet) 40 mg PO QDAC [facility] Last Admin: 02/08/21 07:09 Dose: 40 mg Documented by: Polyethylene Glycol (Polyethylene Glycol 3350 17 Gm Packet) 17 gm PO DAILY PRN PRN Reason: Bowel Protocol Senna (Senna 8.6 Mg Tablet) 34.4 mg PO QPM [facility] Last Admin: 02/07/21 20:48 Dose: 34.4 mg Documented by: Alpha Lipoic Acid 200 mg PO TID 04/14/19 Arginine [l-Arginine] 500 mg PO DAILY 04/14/19 Biotin 2,000 mcg PO BID 04/14/19 Cholecalciferol (Vitamin D3) [Vitamin D3] 1,000 unit PO DAILY 04/14/19 Cinnamon Bark [Cinnamon] 500 mg PO DAILY 04/14/19 Folic Acid 0.8 mg PO DAILY 04/14/19 Glimepiride 4 mg PO DAILY 04/14/19 Grape Seed Extract [Meganatural-Bp] 150 mg PO BID 04/14/19 Green Tea [place] Extract [Green Tea Extract] 300 mg PO DAILY 04/14/19 Insulin Lispro [Humalog] 0 - 60 unit SUBQ QID 04/14/19 Insulin NPH Human Isophane [Humulin N] 60 units SQ DAILY 04/14/19 Krill/Om-3/Dha/Epa/Phospho/Ast [Krill Oil 500 mg Softgel] 2 each PO DAILY 04/14/19 Magnesium 250 mg PO DAILY 04/14/19 Metformin HCl 1,000 mg PO BID 04/14/19 Milk Thistle Seed Extract [Milk Thistle] 175 mg PO BID 04/14/19 Omeprazole 20 mg PO BIDAC 04/14/19 Potassium Gluconate 99 mg PO DAILY 04/14/19 Senna [Senokot] 34.6 mg PO DAILY 04/14/19 Turmeric Root Extract [Turmeric] 500 mg PO TID 04/14/19 Vitamin E (Dl,Tocopheryl Acet) [Vitamin E] 400 unit PO DAILY 04/14/19 inositoL [Inositol] 500 mg PO DAILY 04/14/19 lisinopriL [Lisinopril] 10 mg PO DAILY 04/14/19 Insulin NPH Human [Humulin N] 70 unit SUBQ QPM 02/01/21 Naproxen 500 mg PO BID PRN 02/01/21 Objective - Vital Signs/Intake & Output Reviewed Vital Signs: Yes Vital Signs: Vital Signs x48h Temp Pulse Resp BP Pulse Ox 02/08/21 05:00 66 25 H 90/63 92 02/08/21 00:25 36.8 C 69 25 H 105/69 92 Intake & Output: Intake & Output 02/05/21 02/06/21 02/07/21 02/08/21 23:59 23:59 23:59 23:59 Intake Total 2560 2290 1380 Output Total 4598 2838 1950 350 [facility] -[phone] - Objective General Appearance: positive: Alert Eyes Bilateral: positive: PERRL, EOMI ENT: positive: No signs of dehydration Neck: positive: No JVD. negative: Stiff neck Respiratory: positive: No respiratory distress, Rhonchi (Very faint in the right lower lobe.). negative: Wheezes, Rales (She has had them daily. Today's the first time I have not heard rales.) Cardiovascular: positive: Regular rate & rhythm. negative: Gallop/S4, Friction rub Abdomen: positive: Non-tender, No organomegaly, Nml bowel sounds Skin: positive: Warm, Dry, Diaphoresis (Very slight) Extremities: positive: Non-tender, Full ROM, No pedal edema Neurologic/Psychiatric: positive: Oriented x3, CN's nml (2-12), Motor nml - Lab Results Fish Bones: 02/07/21 04:11 02/07/21 04:11 Other Labs: Lab Results x24hrs 02/07/21 02/07/21 02/07/21 Range/Units 20:31 16:30 12:12 POC Whole Bld Glucose 360 H 340 H 258 H (70 - 100) mg/dL 02/07/21 Range/Units 07:51 POC Whole Bld Glucose 165 H (70 - 100) mg/dL Assessment/Plan - Problem List (1) Acute respiratory failure with hypoxia Impression: Transferred to ICU because of tenuous respiratory status and was maxing out on her HFNC 02 and barely able to maintain adequate sats >90%. 02/07 she appears to stabilize and is slowly going down her oxygen needs. Her wishes to be DO NOT INTUBATE are being respected. Still on 30 liters which is better than before. Plan: Has been back to MedSurg status since yesterday. Continue to provide oxygen until down to 2 L nasal cannula and then home (2) Hypotension 500 cc LR bolus. She is not hypoglycemic Reduce lisinopril to 2.5 mg daily Check CBC, BMP, troponin (2) COVID-19 virus infection Assessment/Plan: Completed Remdesivir 02/04 IV Decadron will be for 10 days. Today will be day 9. I need to start tapering bc of her DM. Mucinex, incentive spirometry, will continue as needed inhalers per respiratory therapy and supplemental oxygen. She was not COVID vaccinated, did not want to get vaccinated. We will wait for her to slowly recover decrease her oxygenation needs and plan to send her home once she is down to 2 liters. I explained that some facilities are waiting until the patient is on room air and some are sending patients home with oxygen. Of the two options she prefers to go home with oxygen. (3) Type 2 diabetes mellitus with complication, with long-term current use of insulin Assessment/Plan: Yesterday she was 165, 258, 340 and 360. Yesterday, I increased her Lantus to 50 units subcu twice daily and NovoLog 12 units 3 times daily with meals plus sliding scale. Plan: Increase NovoLog again to 15 units with meals Start to taper her Decadron (4) Hypertension Qualifiers: Hypertension type: primary hypertension Qualified Code(s): I10 - Essential (primary) hypertension So far she has been controlled and at goal with her home lisinopril until this morning. I will decrease from 10 mg to 2.5 mg and give parameters.
[2021-02-08] MEDS: INSULIN ASPART 300 UNIT/3 ML PEN SUBQ SCH ×7 (08:03→21:33)
[2021-02-08] MEDS: ALBUTEROL 1 PUFF INH PRN (08:03)
[2021-02-08] MEDS: DEXAMETHASONE 4 MG/ML VIAL IVP SCH (08:09)
[2021-02-08] MEDS: lisinopriL 5 MG TABLET PO SCH (08:11)
[2021-02-08] MEDS: CHOLECALCIFEROL 5,000 UNIT CAPSULE PO SCH (08:11)
[2021-02-08] MEDS: guaiFENesin 600 MG TABLET PO SCH ×2 (08:11→21:37)
[2021-02-08] MEDS: ENOXAPARIN 40 MG/0.4 ML SYRINGE SUBQ SCH ×2 (08:12→21:37)
[2021-02-08] MEDS: INSULIN GLARGINE 300 UNIT/3 ML PEN SUBQ SCH ×2 (08:14→21:32)
[2021-02-08] MEDS ORDERED: SODIUM CHLORIDE 0.9% 500 ML IV ONE (09:06)
[2021-02-08] MEDS ORDERED: LACTATED RINGERS 500 ML IV ONE (09:11)
[2021-02-08 12:35] LABS: BASOPHILS % (AUTO) 0.2 %; CALCIUM 9.9 mg/dL (8.5-10.3); CREATININE 0.5 mg/dL (0.4-1.0); EOSINOPHILS % (AUTO) 0.1 %; HCT - HEMATOCRIT 45.8 % (37.0-47.0); HGB - HEMOGLOBIN 15.3 g/dL (12.0-16.0); LYMPHOCYTES # (AUTO) 1.5 10^3/uL (1.5-3.5); LYMPHOCYTES % (AUTO) 9.9 %; MEAN CORPUSCULAR HEMOGLOBIN 28.5 pg (27.0-31.0); MEAN CORPUSCULAR HGB CONC 33.4 g/dL (32.0-36.0); MEAN CORPUSCULAR VOLUME 85.3 fL (81.0-99.0); MEAN PLATELET VOLUME 11.7 fL (7.9-10.8); MONOCYTES # (AUTO) 0.7 10^3/uL (0.0-1.0); MONOCYTES % (AUTO) 4.5 %; NEUTROPHILS % (AUTO) 83.9 %; PLT - PLATELET COUNT 354 10^3/uL (130-450); POTASSIUM 3.8 mmol/L (3.5-5.0); RED BLOOD COUNT 5.37 10^6/uL (4.20-5.40); RED CELL DISTRIBUTION WIDTH 12.4 % (12.0-15.0); WHITE BLOOD COUNT 15.5 x10^3/uL (4.8-10.8)
[2021-02-08] MEDS: IBUPROFEN 400 MG TABLET PO PRN ×2 (15:00→21:38)
[2021-02-08] MEDS: SENNA 8.6 MG TABLET PO SCH (21:37)
[2021-02-09 05:11] LABS: BASOPHILS % (AUTO) 0.1 %; EOSINOPHILS % (AUTO) 0.4 %; HCT - HEMATOCRIT 45.4 % (37.0-47.0); HGB - HEMOGLOBIN 15.3 g/dL (12.0-16.0); LYMPHOCYTES # (AUTO) 2.7 10^3/uL (1.5-3.5); MEAN CORPUSCULAR HEMOGLOBIN 28.8 pg (27.0-31.0); MEAN CORPUSCULAR HGB CONC 33.7 g/dL (32.0-36.0); MEAN CORPUSCULAR VOLUME 85.3 fL (81.0-99.0); MEAN PLATELET VOLUME 11.4 fL (7.9-10.8); MONOCYTES # (AUTO) 0.9 10^3/uL (0.0-1.0); MONOCYTES % (AUTO) 9.6 %; NEUTROPHILS # (AUTO) 5.6 10^3/uL (1.5-6.6); NEUTROPHILS % (AUTO) 59.5 %; PLT - PLATELET COUNT 312 10^3/uL (130-450); RED BLOOD COUNT 5.32 10^6/uL (4.20-5.40); RED CELL DISTRIBUTION WIDTH 12.4 % (12.0-15.0); WHITE BLOOD COUNT 9.4 x10^3/uL (4.8-10.8)
[2021-02-09 05:20] LABS: CALCIUM 9.8 mg/dL (8.5-10.3); CREATININE 0.4 mg/dL (0.4-1.0); POTASSIUM 3.8 mmol/L (3.5-5.0)
[2021-02-09] MEDS: PANTOPRAZOLE 40 MG TABLET PO SCH (06:57)
[2021-02-09] MEDS: ALBUTEROL 1 PUFF INH PRN (07:58)
[2021-02-09] MEDS ORDERED: lisinopriL 5 MG TABLET PO SCH (09:00)
[2021-02-09] MEDS: INSULIN ASPART 300 UNIT/3 ML PEN SUBQ SCH ×7 (09:51→21:52)
[2021-02-09] MEDS: INSULIN GLARGINE 300 UNIT/3 ML PEN SUBQ SCH ×2 (09:52→21:50)
[2021-02-09] MEDS: guaiFENesin 600 MG TABLET PO SCH ×2 (09:53→21:43)
[2021-02-09] MEDS: CHOLECALCIFEROL 5,000 UNIT CAPSULE PO SCH (09:54)
[2021-02-09] MEDS: ENOXAPARIN 40 MG/0.4 ML SYRINGE SUBQ SCH ×2 (09:54→21:42)
[2021-02-09] MEDS: DEXAMETHASONE 4 MG/ML VIAL IVP SCH (12:09)
[2021-02-09] MEDS: lisinopriL 5 MG TABLET PO SCH (12:10)
[2021-02-09] MEDS: IBUPROFEN 400 MG TABLET PO PRN (12:15)
--- NOTE | 2021-02-09 12:57 | CT Report ---
PROCEDURE: HEAD WO INDICATIONS: new blurred vision off and on TECHNIQUE: Noncontrast 4.5 mm thick angled axial sections acquired from the foramen magnum to the vertex. For r adiation dose reduction, the following was used: automated exposure control, adjustment of mA and/or kV according to patient size. COMPARISON: None. FINDINGS: Image quality: Excellent. CSF spaces: Basal cisterns are patent. No extra-axial fluid collections. Ventricles are normal in size and shape. Brain: No midline shift. No intracranial masses or hemorrhage. David-white matter interface is norm al. Skull and face: Calvarium and visualized facial bones are intact, without suspicious lesions. Sinuses: Visualized sinuses and mastoids are clear. IMPRESSION: No acute intracranial abnormality. Reviewed by: Milan Fritz on 02/09/2021 12:56 PM PDT Approved by: Milan Fritz on 02/09/2021 12:56 PM PDT Station ID: [id number]
[2021-02-09] MEDS ORDERED: LACTATED RINGERS 1,000 ML IV ONE (13:41)
[2021-02-09] MEDS: MIDODRINE 2.5 MG TABLET PO SCH ×2 (15:53→21:44)
--- NOTE | 2021-02-09 15:59 | PROVIDER PROGRESS NOTE ---
Subjective - Prog Note Date Prog Note Date: 02/09/21 Prog Note Time: 15:49 - Subjective Subjective: This morning she complained of blurred vision that was coming and going. She is sleep deprived. For some reason she just couldn't sleep last night even when she was prone. Her glucose was 92 this morning so short acting insulin was held. Lantus was given. She continues to be consistently hypotensive since the morning of February 06. Current Medications - Current Medications Current Medications: Active Medications Acetaminophen (Acetaminophen 325 Mg Tablet) 650 mg PO Q4HR PRN PRN Reason: Pain or Fever > 38C (100.4F) Last Admin: 02/07/21 08:18 Dose: 650 mg Documented by: Albuterol (Albuterol 1 Puff) 2 puffs INH Q2H PRN PRN Reason: Dyspnea Last Admin: 02/09/21 07:58 Dose: 2 puffs Documented by: Cholecalciferol (Cholecalciferol 5,000 Unit Capsule) 5,000 unit PO DAILY [facility] Last Admin: 02/09/21 09:54 Dose: 5,000 unit Documented by: Enoxaparin Sodium (Enoxaparin 40 Mg/0.4 Ml Syringe) 40 mg SUBQ BID [facility] Last Admin: 02/09/21 09:54 Dose: 40 mg Documented by: Guaifenesin (Guaifenesin 600 Mg Tablet) 600 mg PO BID [facility] Last Admin: 02/09/21 09:53 Dose: 600 mg Documented by: Ibuprofen (Ibuprofen 400 Mg Tablet) 400 mg PO Q6HR PRN PRN Reason: PAIN Last Admin: 02/09/21 12:15 Dose: 400 mg Documented by: Insulin Aspart (Insulin Aspart 300 Unit/3 Ml Pen) 3 - 11 unit SUBQ 0800,1200,1700,2100 [facility]; Protocol Last Admin: 02/09/21 12:14 Dose: 3 unit Documented by: Insulin Aspart (Insulin Aspart 300 Unit/3 Ml Pen) 12 unit SUBQ TIDWM [facility] Last Admin: 02/09/21 12:14 Dose: 12 unit Documented by: Insulin Glargine (Insulin Glargine 300 Unit/3 Ml Pen) 50 unit SUBQ QPM [facility] Last Admin: 02/08/21 21:32 Dose: 50 unit Documented by: Insulin Glargine (Insulin Glargine 300 Unit/3 Ml Pen) 50 unit SUBQ QDBREAKFAST [facility] Last Admin: 02/09/21 09:52 Dose: 50 unit Documented by: Lisinopril (Lisinopril 5 Mg Tablet) 2.5 mg PO DAILY [facility] Last Admin: 02/09/21 12:10 Dose: Not Given Documented by: Midodrine (Midodrine 2.5 Mg Tablet) 5 mg PO TID [facility] Last Admin: 02/09/21 15:53 Dose: 5 mg Documented by: Pantoprazole Sodium (Pantoprazole 40 Mg Tablet) 40 mg PO QDAC [facility] Last Admin: 02/09/21 06:57 Dose: 40 mg Documented by: Polyethylene Glycol (Polyethylene Glycol 3350 17 Gm Packet) 17 gm PO DAILY PRN PRN Reason: Bowel Protocol Senna (Senna 8.6 Mg Tablet) 34.4 mg PO QPM [facility] Last Admin: 02/08/21 21:37 Dose: 34.4 mg Documented by: Alpha Lipoic Acid 200 mg PO TID 04/14/19 Arginine [l-Arginine] 500 mg PO DAILY 04/14/19 Biotin 2,000 mcg PO BID 04/14/19 Cholecalciferol (Vitamin D3) [Vitamin D3] 1,000 unit PO DAILY 04/14/19 Cinnamon Bark [Cinnamon] 500 mg PO DAILY 04/14/19 Folic Acid 0.8 mg PO DAILY 04/14/19 Glimepiride 4 mg PO DAILY 04/14/19 Grape Seed Extract [Meganatural-Bp] 150 mg PO BID 04/14/19 Green Tea [place] Extract [Green Tea Extract] 300 mg PO DAILY 04/14/19 Insulin Lispro [Humalog] 0 - 60 unit SUBQ QID 04/14/19 Insulin NPH Human Isophane [Humulin N] 60 units SQ DAILY 04/14/19 Krill/Om-3/Dha/Epa/Phospho/Ast [Krill Oil 500 mg Softgel] 2 each PO DAILY 04/14/19 Magnesium 250 mg PO DAILY 04/14/19 Metformin HCl 1,000 mg PO BID 04/14/19 Milk Thistle Seed Extract [Milk Thistle] 175 mg PO BID 04/14/19 Omeprazole 20 mg PO BIDAC 04/14/19 Potassium Gluconate 99 mg PO DAILY 04/14/19 Senna [Senokot] 34.6 mg PO DAILY 04/14/19 Turmeric Root Extract [Turmeric] 500 mg PO TID 04/14/19 Vitamin E (Dl,Tocopheryl Acet) [Vitamin E] 400 unit PO DAILY 04/14/19 inositoL [Inositol] 500 mg PO DAILY 04/14/19 lisinopriL [Lisinopril] 10 mg PO DAILY 04/14/19 Insulin NPH Human [Humulin N] 70 unit SUBQ QPM 02/01/21 Naproxen 500 mg PO BID PRN 02/01/21 Objective - Vital Signs/Intake & Output Reviewed Vital Signs: Yes Vital Signs: Vital Signs x48h Temp Pulse Pulse Resp BP BP Pulse Ox 02/09/21 13:18 36.9 C 80 23 78/48 L 96 02/09/21 12:22 90 21 80/60 L 94 02/09/21 08:15 36.8 C 96 25 H 98/58 L 88 L Intake & Output: Intake & Output 02/06/21 02/07/21 02/08/21 02/09/21 23:59 23:59 23:59 23:59 Intake Total 2290 1380 1920 1290 Output Total 2838 1950 1850 1500 Balance -548 -570 70 -210 - Objective General Appearance: positive: Alert, Other (Upright in her chair in her room. Just feels exhausted. But oriented, cooperative.) Eyes Bilateral: positive: PERRL, EOMI ENT: positive: No signs of dehydration Neck: positive: No JVD. negative: Stiff neck Respiratory: positive: No respiratory distress, Rales (Have been steadily improving over the last 48 hours. I really am only hearing a few in the right midlung on a regular basis now. Before she was bilateral rales). negative: Wheezes, Rhonchi Cardiovascular: positive: Regular rate & rhythm. negative: Gallop/S4, Friction rub Abdomen: positive: Non-tender, No organomegaly, Nml bowel sounds, No distention Skin: positive: Warm, Dry, Pallor Extremities: positive: Non-tender, No pedal edema Neurologic/Psychiatric: positive: Oriented x3, CN's nml (2-12), Motor nml, Sensation nml - Lab Results Fish Bones: 02/09/21 05:01 02/09/21 05:01 Other Labs: Lab Results x24hrs 02/09/21 02/09/21 02/09/21 Range/Units 11:33 08:16 08:08 WBC (4.8-10.8) x10^3/uL RBC (4.20-5.40) 10^6/uL Hgb (12.0-16.0) g/dL Hct (37.0-47.0) % MCV (81.0-99.0) fL MCH (27.0-31.0) pg MCHC (32.0-36.0) g/dL RDW (12.0-15.0) % Plt Count (130-450) 10^3/uL MPV (7.9-10.8) fL Neut # (Auto) (1.5-6.6) 10^3/uL Lymph # (Auto) (1.5-3.5) 10^3/uL Hall # (Auto) (0.0-1.0) 10^3/uL Eos # (Auto) (0.0-0.7) 10^3/uL Baso # (Auto) (0.0-0.1) 10^3/uL Absolute Nucleated RBC x10^3/uL Nucleated RBC % /100WBC Sodium (135-145) mmol/L Potassium (3.5-5.0) mmol/L Chloride (101-111) mmol/L Carbon Dioxide (21-32) mmol/L Anion Gap (6-13) BUN (6-20) mg/dL Creatinine (0.4-1.0) mg/dL Estimated GFR (MDRD) (>89) Glucose (70-100) mg/dL POC Whole Bld Glucose 166 H 92 67 L (70 - 100) mg/dL Calcium (8.5-10.3) mg/dL 02/09/21 02/09/21 02/08/21 Range/Units 05:01 05:01 20:32 WBC 9.4 (4.8-10.8) x10^3/uL RBC 5.32 (4.20-5.40) 10^6/uL Hgb 15.3 (12.0-16.0) g/dL Hct 45.4 (37.0-47.0) % MCV 85.3 (81.0-99.0) fL MCH 28.8 (27.0-31.0) pg MCHC 33.7 (32.0-36.0) g/dL RDW 12.4 (12.0-15.0) % Plt Count 312 (130-450) 10^3/uL MPV 11.4 H (7.9-10.8) fL Neut # (Auto) 5.6 (1.5-6.6) 10^3/uL Lymph # (Auto) 2.7 (1.5-3.5) 10^3/uL Hall # (Auto) 0.9 (0.0-1.0) 10^3/uL Eos # (Auto) 0.0 (0.0-0.7) 10^3/uL Baso # (Auto) 0.0 (0.0-0.1) 10^3/uL Absolute Nucleated RBC 0.00 x10^3/uL Nucleated RBC % 0.0 /100WBC Sodium 139 (135-145) mmol/L Potassium 3.8 (3.5-5.0) mmol/L Chloride 105 (101-111) mmol/L Carbon Dioxide 27 (21-32) mmol/L Anion Gap 7.0 (6-13) BUN 13 (6-20) mg/dL Creatinine 0.4 (0.4-1.0) mg/dL Estimated GFR (MDRD) 174 (>89) Glucose 101 H (70-100) mg/dL POC Whole Bld Glucose 335 H (70 - 100) mg/dL Calcium 9.8 (8.5-10.3) mg/dL 02/08/21 Range/Units 17:00 WBC (4.8-10.8) x10^3/uL RBC (4.20-5.40) 10^6/uL Hgb (12.0-16.0) g/dL Hct (37.0-47.0) % MCV (81.0-99.0) fL MCH (27.0-31.0) pg MCHC (32.0-36.0) g/dL RDW (12.0-15.0) % Plt Count (130-450) 10^3/uL MPV (7.9-10.8) fL Neut # (Auto) (1.5-6.6) 10^3/uL Lymph # (Auto) (1.5-3.5) 10^3/uL Hall # (Auto) (0.0-1.0) 10^3/uL Eos # (Auto) (0.0-0.7) 10^3/uL Baso # (Auto) (0.0-0.1) 10^3/uL Absolute Nucleated RBC x10^3/uL Nucleated RBC % /100WBC Sodium (135-145) mmol/L Potassium (3.5-5.0) mmol/L Chloride (101-111) mmol/L Carbon Dioxide (21-32) mmol/L Anion Gap (6-13) BUN (6-20) mg/dL Creatinine (0.4-1.0) mg/dL Estimated GFR (MDRD) (>89) Glucose (70-100) mg/dL POC Whole Bld Glucose 312 H (70 - 100) mg/dL Calcium (8.5-10.3) mg/dL Assessment/Plan - Problem List (1) Hypotension Impression: its been an issue for over 36 hours now. Started the morning of 02/06. I did do one fluid bolus. Reduced her lisinopril dose from 10 mg to 2.5 mg. SOARES to date is troponin, EKG, ECHO, CBC Today she is having blurred vision off and on. Neurological exam is unchanged. She is essentially normal without any focal deficits or cranial nerve problems. Head CT is without acute cranial abnormality. She continues to have hypotension. In reviewing her intake and output she has been consistently negative since February 04. Even though she has adequate intake with fluids by mouth, she is behind. She would like to tafoya dc'd. Plan: 1 L fluid bolus, maintenance IV fluids for another liter 2. Discontinue tafoya (2) Acute respiratory failure with hypoxia Impression: Transferred to ICU because of tenuous respiratory status and was maxing out on her HFNC 02 and barely able to maintain adequate sats >90%. 02/07 she appears to stabilize and is slowly going down her oxygen needs. Her wishes to be DO NOT INTUBATE are being respected. Changed to oxymizer and is stable on 8 liters. She still desats to the 70s when she get up to bathroom or showers and takes 10 minutes to recover. Plan: Has been back to MedSur status since 02/07. Continue to provide oxygen until down to 2 L nasal cannula and then home (3) COVID-19 virus infection Assessment/Plan: Completed Remdesivir 02/04 IV Decadron will be for 10 days. Today will be day 10. I need to start tapering bc of her DM. Mucinex, incentive spirometry, will continue as needed inhalers per respiratory therapy and supplemental oxygen. She was not COVID vaccinated, did not want to get vaccinated. We will wait for her to slowly recover decrease her oxygenation needs and plan to send her home once she is down to 2 liters. I explained that some facilities are waiting until the patient is on room air and some are sending patients home with oxygen. Of the two options she prefers to go home with oxygen. (4) Type 2 diabetes mellitus with complication, with long-term current use of insulin Assessment/Plan: Yesterday 151, 175, 312, 335 Today 62 which quickly corrected to 92. It is 166 before lunch She is on Lantus 50 units subcu twice daily and NovoLog 15 units before meals with sliding scale. With reduction in Decadron, I will decrease nighttime Lantus to 40 units. We'll continue to watch carefully cannot overtreat now that Decadron will be stopped
[2021-02-09] MEDS: SENNA 8.6 MG TABLET PO SCH (21:43)
[2021-02-10] MEDS: MIDODRINE 2.5 MG TABLET PO SCH ×4 (06:29→17:26)
[2021-02-10] MEDS: PANTOPRAZOLE 40 MG TABLET PO SCH (06:44)
[2021-02-10] MEDS: CHOLECALCIFEROL 5,000 UNIT CAPSULE PO SCH (08:43)
[2021-02-10] MEDS: guaiFENesin 600 MG TABLET PO SCH ×2 (08:43→21:06)
[2021-02-10] MEDS: ENOXAPARIN 40 MG/0.4 ML SYRINGE SUBQ SCH ×2 (08:43→21:07)
[2021-02-10] MEDS: lisinopriL 5 MG TABLET PO SCH (08:50)
[2021-02-10] MEDS: INSULIN ASPART 300 UNIT/3 ML PEN SUBQ SCH ×6 (08:58→21:08)
[2021-02-10] MEDS ORDERED: INSULIN GLARGINE 300 UNIT/3 ML PEN SUBQ ONE (09:11)
--- NOTE | 2021-02-10 12:04 | PROVIDER PROGRESS NOTE ---
Subjective - Prog Note Date Prog Note Date: 02/10/21 Prog Note Time: 12:09 - Subjective Pt reports feeling: Improved Subjective: she doesn't have the visual changes. The CT of the head was without acute changes. Still tired but feels good. Still desats in room with exertion to bathroom Eating Needing less and less insulin with the stopping of the decadron Current Medications - Current Medications Current Medications: Active Medications Acetaminophen (Acetaminophen 325 Mg Tablet) 650 mg PO Q4HR PRN PRN Reason: Pain or Fever > 38C (100.4F) Last Admin: 02/07/21 08:18 Dose: 650 mg Documented by: Albuterol (Albuterol 1 Puff) 2 puffs INH Q2H PRN PRN Reason: Dyspnea Last Admin: 02/09/21 07:58 Dose: 2 puffs Documented by: Cholecalciferol (Cholecalciferol 5,000 Unit Capsule) 5,000 unit PO DAILY [facility] Last Admin: 02/10/21 08:43 Dose: 5,000 unit Documented by: Enoxaparin Sodium (Enoxaparin 40 Mg/0.4 Ml Syringe) 40 mg SUBQ BID [facility] Last Admin: 02/10/21 08:43 Dose: 40 mg Documented by: Guaifenesin (Guaifenesin 600 Mg Tablet) 600 mg PO BID [facility] Last Admin: 02/10/21 08:43 Dose: 600 mg Documented by: Ibuprofen (Ibuprofen 400 Mg Tablet) 400 mg PO Q6HR PRN PRN Reason: PAIN Last Admin: 02/09/21 12:15 Dose: 400 mg Documented by: Insulin Aspart (Insulin Aspart 300 Unit/3 Ml Pen) 3 - 11 unit SUBQ 0800,120 0,1700,2100 [facility]; Protocol Last Admin: 02/10/21 12:07 Dose: 5 unit Documented by: Insulin Glargine (Insulin Glargine 300 Unit/3 Ml Pen) 30 unit SUBQ QPM [facility] Midodrine (Midodrine 2.5 Mg Tablet) 5 mg PO TIDWM [facility] Last Admin: 02/10/21 12:08 Dose: 5 mg Documented by: Pantoprazole Sodium (Pantoprazole 40 Mg Tablet) 40 mg PO QDAC [facility] Last Admin: 02/10/21 06:44 Dose: 40 mg Documented by: Polyethylene Glycol (Polyethylene Glycol 3350 17 Gm Packet) 17 gm PO DAILY PRN PRN Reason: Bowel Protocol Senna (Senna 8.6 Mg Tablet) 34.4 mg PO QPM [facility] Last Admin: 02/09/21 21:43 Dose: 34.4 mg Documented by: Alpha Lipoic Acid 200 mg PO TID 04/14/19 Arginine [l-Arginine] 500 mg PO DAILY 04/14/19 Biotin 2,000 mcg PO BID 04/14/19 Cholecalciferol (Vitamin D3) [Vitamin D3] 1,000 unit PO DAILY 04/14/19 Cinnamon Bark [Cinnamon] 500 mg PO DAILY 04/14/19 Folic Acid 0.8 mg PO DAILY 04/14/19 Glimepiride 4 mg PO DAILY 04/14/19 Grape Seed Extract [Meganatural-Bp] 150 mg PO BID 04/14/19 Green Tea [place] Extract [Green Tea Extract] 300 mg PO DAILY 04/14/19 Insulin Lispro [Humalog] 0 - 60 unit SUBQ QID 04/14/19 Insulin NPH Human Isophane [Humulin N] 60 units SQ DAILY 04/14/19 Krill/Om-3/Dha/Epa/Phospho/Ast [Krill Oil 500 mg Softgel] 2 each PO DAILY 04/14/19 Magnesium 250 mg PO DAILY 04/14/19 Metformin HCl 1,000 mg PO BID 04/14/19 Milk Thistle Seed Extract [Milk Thistle] 175 mg PO BID 04/14/19 Omeprazole 20 mg PO BIDAC 04/14/19 Potassium Gluconate 99 mg PO DAILY 04/14/19 Senna [Senokot] 34.6 mg PO DAILY 04/14/19 Turmeric Root Extract [Turmeric] 500 mg PO TID 04/14/19 Vitamin E (Dl,Tocopheryl Acet) [Vitamin E] 400 unit PO DAILY 04/14/19 inositoL [Inositol] 500 mg PO DAILY 04/14/19 lisinopriL [Lisinopril] 10 mg PO DAILY 04/14/19 Insulin NPH Human [Humulin N] 70 unit SUBQ QPM 02/01/21 Naproxen 500 mg PO BID PRN 02/01/21 Objective - Vital Signs/Intake & Output Reviewed Vital Signs: Yes Vital Signs: Vital Signs x48h Temp Pulse Resp BP BP Pulse Ox 02/10/21 10:14 77 92 02/10/21 08:27 36.9 C 65 18 88/56 L 89 L 02/10/21 05:00 37.0 C 54 L 19 94/65 65 L Intake & Output: Intake & Output 02/07/21 02/08/21 02/09/21 02/10/21 23:59 23:59 23:59 23:59 Intake Total 1380 1920 3030 900 Output Total 1950 1850 2310 800 Balance -570 70 720 100 - Objective General Appearance: positive: No acute distress, Alert, Other (she really has made a effort to be up in chair and not be in bed. when in bed prones.) Eyes Bilateral: positive: PERRL, EOMI ENT: positive: No signs of dehydration Neck: positive: No JVD. negative: Stiff neck Respiratory: positive: No respiratory distress. negative: Wheezes, Rales, Rhonchi, Other (I hear no crackles at all today.) Cardiovascular: positive: Regular rate & rhythm. negative: Gallop/S4, Friction rub Abdomen: positive: Non-tender, No organomegaly, Nml bowel sounds, No distention Skin: positive: Warm, Dry Extremities: positive: Full ROM, No pedal edema Neurologic/Psychiatric: positive: Oriented x3, CN's nml (2-12), Motor nml - Lab Results Fish Bones: 02/09/21 05:01 02/09/21 05:01 Other Labs: Lab Results x24hrs 02/10/21 02/10/21 02/09/21 Range/Units 11:44 08:16 20:38 POC Whole Bld Glucose 193 H 71 384 H (70 - 100) mg/dL 02/09/21 Range/Units 16:36 POC Whole Bld Glucose 317 H (70 - 100) mg/dL Assessment/Plan - Problem List (1) Hypotension Impression: its been an issue since the morning of 02/06. I did do one fluid bolus. Reduced her lisinopril dose from 10 mg to 2.5 mg. SOARES to date is troponin, EKG, ECHO, CB C 02/09 she was having blurred vision off and on. Neurological exam is unchanged. She was essentially normal without any focal deficits or cranial nerve problems. Head CT was without acute cranial abnormality. The change in vision has resolved. In reviewing her intake and output she has been consistently negative since February 04. Even though she has adequate intake with fluids by mouth, s he is behind. Johnnie was dc'd at her request. Up in room. She received a liter fluid bolus 02/09 and I started maintenance. Still 88-94 systolic and 118 right this moment on my exam. Plan: Maintenance fluids until she leave. stop all BP meds. On midodrine temporarily until she gets home and then homeostasis occurs for her usual diet, meds, etc. (2) Acute respiratory failure with hypoxia Impression: Transferred to ICU because of tenuous respiratory status and was maxing out on her HFNC 02 and barely able to maintain adequate sats >90%. 02/07 she appears to stabilize and is slowly going down her oxygen needs. Her wishes to be DO NOT INTUBATE are being respected. Changed to oxymizer and is stable on 8 liters. She still desats to the 70s when she get up to bathroom or showers and takes 10 minutes to recover. But today is the lowest 02 she's needed. She is down to 4 liters by [place]. I am very happy for her. She is anxious to go home and get the kids situated for school. Plan: Has been back to MedSurg status since 02/07. Continue to provide oxygen until down to 2 L nasal cannula and then home (3) COVID-19 virus infection Assessment/Plan: Completed Remdesivir 02/04 Completed 10 days of decadron 02/09 Mucinex, incentive spirometry, will continue as needed inhalers per respiratory therapy and supplemental oxygen. She was not COVID vaccinated, did not want to get vaccinated. We will wait for her to slowly recover decrease her oxygenation needs and plan to send her home once she is down to 2 liters. I explained that some facilities are waiting until the patient is on room air and some are sending patients home with oxygen. Of the two options she prefers to go home with oxygen. (4) Type 2 diabetes mellitus with complication, with long-term current use of insulin Assessment/Plan: 02/08: 151, 175, 312, 335 02/09: 62 which quickly corrected to 92. It is 166 before lunch. I decreased her nutritional since I was stopping the decadron This am she is low again. Hold lantus for this am, parameters given Decrease lantus to 30 units SQ bid, stop nutritional fixed dose before meals and only use SS
[2021-02-10] MEDS: IBUPROFEN 400 MG TABLET PO PRN (12:37)
[2021-02-10] MEDS ORDERED: INSULIN GLARGINE 300 UNIT/3 ML PEN SUBQ SCH (21:00)
[2021-02-10] MEDS: SENNA 8.6 MG TABLET PO SCH (21:06)
[2021-02-10] MEDS: SODIUM CHLORIDE FLUSH 0.9% 10 ML SYRINGE IVP SCH (21:19)
[2021-02-11] MEDS: PANTOPRAZOLE 40 MG TABLET PO SCH (06:45)
[2021-02-11] MEDS ORDERED: LACTATED RINGERS 500 ML IV ONE (08:19)
[2021-02-11] MEDS: ALBUTEROL 1 PUFF INH PRN ×3 (08:49→22:19)
[2021-02-11] MEDS: ENOXAPARIN 40 MG/0.4 ML SYRINGE SUBQ SCH ×2 (09:08→21:12)
[2021-02-11] MEDS: INSULIN ASPART 300 UNIT/3 ML PEN SUBQ SCH ×4 (09:08→21:11)
[2021-02-11] MEDS: MIDODRINE 2.5 MG TABLET PO SCH ×3 (09:08→17:22)
[2021-02-11] MEDS: CHOLECALCIFEROL 5,000 UNIT CAPSULE PO SCH (09:09)
[2021-02-11] MEDS: guaiFENesin 600 MG TABLET PO SCH ×2 (09:09→21:12)
[2021-02-11] MEDS: SODIUM CHLORIDE FLUSH 0.9% 10 ML SYRINGE IVP SCH ×3 (09:12→21:13)
[2021-02-11] MEDS: IBUPROFEN 400 MG TABLET PO PRN (11:07)
[2021-02-11] MEDS: INSULIN GLARGINE 300 UNIT/3 ML PEN SUBQ SCH ×2 (11:41→21:11)
--- NOTE | 2021-02-11 19:32 | PROVIDER PROGRESS NOTE ---
Progress Note February 11, 2021 7:29 PM Patient was seen briefly this morning. Our goal was to get her out of the hospital today on 2 L nasal cannula. She had been doing so well. She decided to road test herself without any oxygen and without respiratory therapy present. She was in the bathroom, brushing teeth, doing her morning ablations and then getting back in bed. O2 sat was in the mid 70% on room air and it took over 30 minutes to get her O2 sats back up again. As such we do not think she is safe enough to go home today. She is very disappointed. Temperature is 36.9. Heart rate is 92. Respirations 22. 2 L nasal cannula to maintain O2 sats at 93%. Lungs are completely clear. No increased respiratory effort at rest or with talking. Regular rate and rhythm. Obese abdomen that soft and nontender with hypoactive t active bowel sounds extremities with no edema No labs have been done since she has been stable for several days and we are just checking her sugars. Assessment/plan 1. Hypotension most likely due to negative fluid balance for several days. I have been aggressively hydrating her and giving fluid boluses and she is gradually recovering. The kaleidoscope vision changes and lightheaded dizziness when she stood has resolved. I do not have her on her blood pressure medicines. 2. Acute respiratory failure with hypoxia continues in spite of improvement from Covid. Continue to try and wean her off oxygen or send her home on 2 L if she can maintain O2 sats with walking. 3. Covid virus infection. She is completed remdesivir and Decadron. 4. Type 2 diabetes mellitus. Lantus has been decreased to 25 twice daily. I have stopped her nutritional NovoLog. All of this was because Decadron was stopped and her glucose was falling. When she goes home she should resume her usual regimen.
[2021-02-11] MEDS: SENNA 8.6 MG TABLET PO SCH (21:12)
[2021-02-12] MEDS: PANTOPRAZOLE 40 MG TABLET PO SCH (06:37)
--- NOTE | 2021-02-12 08:07 | Discharge Plan ---
Discharge Plan Problem Reviewed?: Yes Disposition: 01 Home, Self Care Condition: Stable Diet: Regular Activity Restrictions: Activity as Tolerated Instruction Topics: Midodrine tablets Health Concerns: You were admitted on 01/31/21 with cough and shortness of breath which started on 01/23/21. You had been diagnosed with COVID-19 on 01/27/21. He was started on treatment which included remdesivir and Decadron. He also required supplemental oxygen for an oxygen saturation of 88%. Over the subsequent 12 days his symptoms improved/resolved. You had oxygen desaturation study done on the day of discharge and will be discharged with supplemental oxygen. You have been advised to rest upon going home and not to overexert yourself. You expressed understanding and are agreeable with this plan. You may follow-up with your primary care physician as needed. Plan of Treatment: You were admitted on 01/31/21 with cough and shortness of breath which started on 01/23/21. You had been diagnosed with COVID-19 on 01/27/21. He was started on treatment which included remdesivir and Decadron. He also required supplemental oxygen for an oxygen saturation of 88%. Over the subsequent 12 days his symptoms improved/resolved. You had oxygen desaturation study done on the day of discharge and will be discharged with supplemental oxygen. You have been advised to rest upon going home and not to overexert yourself. You expressed understanding and are agreeable with this plan. You may follow-up with your primary care physician as needed. Care Goals: You were admitted on 01/31/21 with cough and shortness of breath which started on 01/23/21. You had been diagnosed with COVID-19 on 01/27/21. He was started on treatment which included remdesivir and Decadron. He also required supplemental oxygen for an oxygen saturation of 88%. Over the subsequent 12 days his symptoms improved/resolved. You had oxygen desaturation study done on the day of discharge and will be discharged with supplemental oxygen. You have been advised to rest upon going home and not to overexert yourself. You expressed understanding and are agreeable with this plan. You may follow-up with your primary care physician as needed. Assessment: You were admitted on 01/31/21 with cough and shortness of breath which started on 01/23/21. You had been diagnosed with COVID-19 on 01/27/21. He was started on treatment which included remdesivir and Decadron. He also required supplemental oxygen for an oxygen saturation of 88%. Over the subsequent 12 days his symptoms improved/resolved. You had oxygen desaturation study done on the day of discharge and will be discharged with supplemental oxygen. You have been advised to rest upon going home and not to overexert yourself. You expressed understanding and are agreeable with this plan. You may follow-up with your primary care physician as needed. No Smoking: If you smoke, Please STOP! Call for help. Follow-up with: Sybil Matthews PA-C [Primary Care Provider] -
--- NOTE | 2021-02-12 08:07 | DISCHARGE SUMMARY ---
Discharge Summary Admit Date: 01/31/21 Discharge Date: 02/12/21 Discharging Provider: Jaclyn Stewart Primary Care Provider: Sybil Matthews Code Status: Attempt Resuscitation Condition at Discharge: Stable Discharge Disposition: 01 Home, Self Care - DIAGNOSES Admission Diagnoses: COVID-19 virus infection Hypoxia Type 2 diabetes mellitus with complication, with long-term current use of insulin Hypertension At Risk for DVT Discharge Diagnoses with Status of Each Condition: COVID-19 virus infection: Acute. Resolved Hypoxia: Acute. Improving. Patient discharged with supplemental oxygen. Type 2 diabetes mellitus with complication, with long-term current use of insulin: Chronic. Stable. Continue home medication Hypertension: Chronic. Stable. Continue home medication - HPI History of Present Illness: 45-year-old female who is followed by Karoline Matthews PA-C. She has a history of hypertension, diabetes mellitus requiring insulin, hyperlipidemia, morbid obesity, chronic low back pain and presents with cough and shortness of breath that started January 23. She is unvaccinated and does not believe in vaccines. She does not even get the flu vaccine. Seen in the walk in clinic 01/27 because the shortness of breath progressed to productive green mucus, loose stool. Her child was Covid positive and she was positive for COVID-19 that day. She has lost her sense of smell, has no appetite. Shortness of breath progressed today that she came to the emergency room. Temperature was 38.4. Pulse 98. Blood pressure 131/71. Respirations 18. 93% on room air. When she walked in the emergency room her O2 sat would drop to 88%. She would rebound to 94% on 2 L with walking. She has no GI complaints. She is a morbidly obese alert female who has a regular rate and rhythm that is tachycardic. She has decreased breath sounds bilaterally at the lung bases. No respiratory distress. Normal bowel sounds. A normal neurological exam. She is leukopenic with a white cell count of 3.9. Hemoglobin is 14.8. Hematocrit 43. Platelets 143. CMP is normal except for glucose of 178. AST 44. She is Covid positive on PCR testing. Chest x-ray has cardiomegaly with moderate vascular congestion and left pleural effusion with atelectasis and/or infiltrate. She was given azithromycin, Decadron, and remdesivir. Our service is being asked to admit her for Covid pneumonia. - HOSPITAL COURSE Hospital Course: Patient was in the hospital for a total of 12 days. She had an oxygen requirement as high as a high flow with an FiO2 of 60%. She required high flow for 7 days. From 02/01 to 02/08. She completed a regimen of remdesivir and Decadron. She had an oxygen desaturation test on the day of discharge. At rest her oxygen saturation was 93% with a heart rate of 81 on room air. With ambulation her oxygen saturation was 87% with a heart rate of 124 on room air. At rest on 1 L of oxygen via nasal cannula her oxygen saturation was 94% with a heart rate of 78. Ambulating with 1 L of oxygen via nasal cannula, her oxygen saturation was 91% with a heart rate of 79. On 2 L of oxygen via nasal cannula and at rest her Oxygen saturation was 96% with a Heart rate of 75 On 2 L of oxygen via nasal cannula while ambulating her oxygen saturation was 94% with a heart rate of 114. Patient was discharged home with supplemental oxygen to use as needed to maintain her oxygen saturation greater than 90%. She was advised to anticipate feeling weak/ de-conditioned once she returns home and to allow for adequate rest before resuming her regular activities Her hemoglobin A1c was 8.0. He was discharged home on her regular home dose of insulin. - ALLERGIES Allergies/Adverse Reactions: Allergies Allergy/AdvReac Type Severity Reaction Status Date / Time tomato Allergy Unknown Verified 01/31/21 16:54 - MEDICATIONS Home Medications: Ambulatory Orders Medication Instructions Recorded Confirmed Alpha Lipoic Acid 200 mg PO TID 04/14/19 02/01/21 Arginine [l-Arginine] 500 mg PO DAILY 04/14/19 02/01/21 Biotin 2,000 mcg PO BID 04/14/19 02/01/21 Cholecalciferol (Vitamin D3) 1,000 unit PO DAILY 04/14/19 02/01/21 [Vitamin D3] Cinnamon Bark [Cinnamon] 500 mg PO DAILY 04/14/19 02/01/21 Folic Acid 0.8 mg PO DAILY 04/14/19 02/01/21 Glimepiride 4 mg PO DAILY 04/14/19 02/01/21 Grape Seed Extract [Meganatural-Bp] 150 mg PO BID 04/14/19 02/01/21 Green Tea [place] Extract [Green Tea 300 mg PO DAILY 04/14/19 02/01/21 Extract] Insulin Lispro [Humalog] 0 - 60 unit SUBQ QID 04/14/19 02/01/21 Insulin NPH Human Isophane 60 units SQ DAILY 04/14/19 02/01/21 [Humulin N] Krill/Om-3/Dha/Epa/Phospho/Ast 2 each PO DAILY 04/14/19 02/01/21 [Krill Oil 500 mg Softgel] Magnesium 250 mg PO DAILY 04/14/19 02/01/21 Metformin HCl 1,000 mg PO BID 04/14/19 02/01/21 Milk Thistle Seed Extract [Milk 175 mg PO BID 04/14/19 02/01/21 Thistle] Omeprazole 20 mg PO BIDAC 04/14/19 02/01/21 Potassium Gluconate 99 mg PO DAILY 04/14/19 02/01/21 Senna [Senokot] 34.6 mg PO DAILY 04/14/19 02/01/21 Turmeric Root Extract [Turmeric] 500 mg PO TID 04/14/19 02/01/21 Vitamin E (Dl,Tocopheryl Acet) 400 unit PO DAILY 04/14/19 02/01/21 [Vitamin E] inositoL [Inositol] 500 mg PO DAILY 04/14/19 02/01/21 lisinopriL [Lisinopril] 10 mg PO DAILY 04/14/19 02/01/21 Insulin NPH Human [Humulin N] 70 unit SUBQ QPM 02/01/21 02/01/21 Naproxen 500 mg PO BID PRN 02/01/21 02/01/21 - PHYSICAL EXAM AT DISCHARGE General Appearance: positive: No acute distress, Alert Eyes Bilateral: positive: PERRL, EOMI ENT: positive: No signs of dehydration Neck: positive: No JVD, Trachea midline Respiratory: positive: Chest non-tender, No respiratory distress, Breath sounds nml. negative: Wheezes, Rales, Rhonchi Cardiovascular: positive: No murmur, Tachycardia (mild) Abdomen: positive: Non-tender. negative: Guarding, Rebound Back: positive: Nml inspection Skin: positive: Color nml, No rash, Warm, Dry Extremities: positive: Non-tender, Full ROM, Nml appearance, No pedal edema Neurologic/Psychiatric: positive: Oriented x3, Mood/affect nml - LABS Result Diagrams: 02/09/21 05:01 02/09/21 05:01 - TIME SPENT Time Spent in Discharge (Minutes): 20
[2021-02-12] MEDS: SODIUM CHLORIDE FLUSH 0.9% 10 ML SYRINGE IVP SCH (08:21)
[2021-02-12] MEDS: guaiFENesin 600 MG TABLET PO SCH (08:21)
[2021-02-12] MEDS: ENOXAPARIN 40 MG/0.4 ML SYRINGE SUBQ SCH (08:21)
[2021-02-12] MEDS: MIDODRINE 2.5 MG TABLET PO SCH ×2 (08:22→12:10)
[2021-02-12] MEDS: INSULIN ASPART 300 UNIT/3 ML PEN SUBQ SCH ×2 (08:22→12:10)
[2021-02-12] MEDS: INSULIN GLARGINE 300 UNIT/3 ML PEN SUBQ SCH (08:22)
[2021-02-12] MEDS: CHOLECALCIFEROL 5,000 UNIT CAPSULE PO SCH (08:22)
[2021-02-12] MEDS: ALBUTEROL 1 PUFF INH PRN (08:40)
[2021-02-12 16:46] VITALS: BP 116/75
== END 2021-02-12 17:30 | disposition home or self-care (01) | DRG 177 ==
LOC: ED 16:27 → MS2 18:29 → ICU 02-05 16:18
PROVIDERS: ADMIT Specialist; ATTEND Internal Medicine
PROC: XW033E5 Introduction of Remdesivir Anti-infective into Peripheral Vein, Percutaneous Approach, New Technology Group 5 (ICD-10-PCS; principal; 2021-02-01)
PROC: 3E0333Z Introduction of Anti-inflammatory into Peripheral Vein, Percutaneous Approach (ICD-10-PCS; 2021-02-01)
DX: U07.1 COVID-19 (principal); J12.82 Pneumonia due to coronavirus disease 2019; J96.01 Acute respiratory failure with hypoxia; Z68.42 Body mass index [BMI] 45.0-49.9, adult; I95.9 Hypotension, unspecified; H53.8 Other visual disturbances; I10 Essential (primary) hypertension; E11.42 Type 2 diabetes mellitus with diabetic polyneuropathy; E78.5 Hyperlipidemia, unspecified; E66.01 Morbid (severe) obesity due to excess calories; D72.819 Decreased white blood cell count, unspecified; G89.29 Other chronic pain; M54.9 Dorsalgia, unspecified; M19.90 Unspecified osteoarthritis, unspecified site; K76.0 Fatty (change of) liver, not elsewhere classified; Z79.4 Long term (current) use of insulin; Z87.09 Personal history of other diseases of the respiratory system; Z87.891 Personal history of nicotine dependence; Z79.899 Other long term (current) drug therapy
CPT/HCPCS: 0202U; 36415; 70450; 71045; 80048; 80053; 82306; 83036; 83605; 83690; 83735; 84484; 84703; 85025; 85610; 87040; 93005; 93306; 94640; 94761; 99284; 99285; A9270; C9399; J1650; J1815; J7120; 84702

== ENCOUNTER 2021-04-19 08:00 | Outpatient (CLI) | payer OTHER ==
[2021-04-19 17:37] LABS: CREATININE,URINE 36.2 mg/dL; MICROALBUM/CREATININE RATIO,UR 8.3 ug/mg (<30.0); MICROALBUMIN,URINE 0.3 mg/dL (0-300.0)
[2021-04-19 17:41] LABS: ALBUMIN 4.2 g/dL (3.2-5.5); ALBUMIN/GLOBULIN RATIO 1.4 (1.0-2.2); ALKALINE PHOSPHATASE 78 IU/L (42-121); ALT ALANINE AMINOTRANSFERASE 34 IU/L (10-60); AST ASPARTATE AMINOTRANSFERASE 25 IU/L (10-42); BILIRUBIN,TOTAL 0.8 mg/dL (0.2-1.0); BUN - BLOOD UREA NITROGEN 10 mg/dL (6-20); CARBON DIOXIDE - CO2 25 mmol/L (21-32); CHLORIDE 103 mmol/L (101-111); CHOL/HDL RATIO 6.6 (<4.4); CHOLESTEROL 257 mg/dL; CREATININE 0.4 mg/dL (0.4-1.0); GFR - MDRD 174 (>89); GLUCOSE 134 mg/dL (70-100); HDL CHOLESTEROL 39 mg/dL; LDL CHOLESTEROL,CALCULATED 177 mg/dL; LDL/HDL RATIO 4.5 (<4.4); SODIUM 136 mmol/L (135-145); TOTAL PROTEIN 7.1 g/dL (6.7-8.2); TRIGLYCERIDES 206 mg/dL; VLDL CHOLESTEROL 41 mg/dL
[2021-04-19 17:50] LABS: THYROID STIMULATING HORMONE 1.99 uIU/mL (0.34-5.60)
[2021-04-19 20:22] LABS: ESTIMATED AVERAGE GLUCOSE 143 mg/dL (70-100); HEMOGLOBIN A1c% 6.6 % (4.27-6.07)
== END 2021-04-19 23:59 | disposition home or self-care (01) ==
LOC: LAB.WCP 08:00
PROVIDERS: ATTEND Physician Assistant Medical
DX: E11.9 Type 2 diabetes mellitus without complications (principal)
CPT/HCPCS: 36415; 80053; 80061; 82043; 82570; 83036; 83721; 84443

== ENCOUNTER 2021-07-16 09:54 | Outpatient (CLI) | payer OTHER ==
[2021-07-16 12:16] LABS: CALCIUM 9.9 mg/dL (8.5-10.3); CREATININE 0.5 mg/dL (0.4-1.0); POTASSIUM 3.8 mmol/L (3.5-5.0)
[2021-07-16 12:47] LABS: ESTIMATED AVERAGE GLUCOSE 157 mg/dL (70-100); HEMOGLOBIN A1c% 7.1 % (4.27-6.07)
== END 2021-07-16 09:55 | disposition home or self-care (01) ==
LOC: LAB.N 09:54
PROVIDERS: ATTEND Physician Assistant Medical
DX: E11.9 Type 2 diabetes mellitus without complications (principal)
CPT/HCPCS: 36415; 80048; 83036

== ENCOUNTER 2021-07-31 12:29 | Outpatient (CLI) | payer OTHER ==
--- NOTE | 2021-07-31 13:59 | XRAY Report ---
PROCEDURE: Hip w/Pelvis 1V LT INDICATIONS: L HIP PX TECHNIQUE: AP pelvis with lateral view(s) of the left hip(s). COMPARISON: None. FINDINGS: BONES/JOINTS: No acute, displaced fracture. No widening of the pubic symphysis. The sacroiliac joints are symmetric. The femoral heads are normal ly seated within the acetabulum. SOFT TISSUES: No focal abnormality. IMPRESSION: 1.No acute osseous abnormality. Reviewed by: Colby Zelaya MD on 07/31/2021 1:58 PM PST Approved by: Colby Zelaya MD on 07/31/2021 1:58 PM PST Station ID: [id number]
--- NOTE | 2021-07-31 14:06 | XRAY Report ---
PROCEDURE: Lumbar Spine 2 View INDICATIONS: LUMBAR RADICULOPATHY TECHNIQUE: 3 views of the lumbar spine were acquired. COMPARISON: None. FINDINGS: L-SPINE: No acute displaced fracture or malalignment. Endplate osteophytosis. Facet arthrosis, most p rominent at L5-S1. The vertebral body heights are maintained. The disc space heights are maintained. The sacroiliac joints appear patent. SOFT TISSUES: No focal abnormality. IMPRESSION: 1.No acute osseous abnormality of the lumbar spine. Reviewed by: Colby Zelaya MD on 07/31/2021 2:04 PM [facility] Approved by: Colby Zelaya MD on 07/31/2021 2:04 PM [facility] Station ID: [id number]
== END 2021-07-31 12:30 | disposition home or self-care (01) ==
LOC: DI.N 12:29
PROVIDERS: ATTEND Physician Assistant Medical
DX: M25.552 Pain in left hip (principal); M54.16 Radiculopathy, lumbar region

== ENCOUNTER 2021-10-16 10:40 | Outpatient (CLI) | payer OTHER ==
[2021-10-16 12:59] LABS: ALBUMIN 4.4 g/dL (3.2-5.5); ALBUMIN/GLOBULIN RATIO 1.4 (1.0-2.2); ALKALINE PHOSPHATASE 76 IU/L (42-121); ALT ALANINE AMINOTRANSFERASE 35 IU/L (10-60); AST ASPARTATE AMINOTRANSFERASE 30 IU/L (10-42); BILIRUBIN,TOTAL 0.9 mg/dL (0.2-1.0); BUN - BLOOD UREA NITROGEN 10 mg/dL (6-20); CALCIUM 10.2 mg/dL (8.5-10.3); CARBON DIOXIDE - CO2 25 mmol/L (21-32); CHLORIDE 100 mmol/L (101-111); CHOL/HDL RATIO 7.9 (<4.4); CHOLESTEROL 286 mg/dL; CREATININE 0.6 mg/dL (0.4-1.0); GFR - MDRD 109 (>89); GLUCOSE 188 mg/dL (70-100); HDL CHOLESTEROL 36 mg/dL; POTASSIUM 4.3 mmol/L (3.5-5.0); SODIUM 137 mmol/L (135-145); TOTAL PROTEIN 7.5 g/dL (6.7-8.2); TRIGLYCERIDES 521 mg/dL
[2021-10-16 13:17] LABS: ESTIMATED AVERAGE GLUCOSE 186 mg/dL (70-100); HEMOGLOBIN A1c% 8.1 % (4.27-6.07)
[2021-10-16 15:35] LABS: LDL CHOLESTEROL,DIRECT 134 mg/dL; LDLD/HDL RATIO 3.7 (<4.4)
== END 2021-10-16 10:41 | disposition home or self-care (01) ==
LOC: LAB.N 10:40
PROVIDERS: ATTEND Physician Assistant Medical
DX: E11.9 Type 2 diabetes mellitus without complications (principal)
CPT/HCPCS: 36415; 80053; 80061; 83036; 83721

== ENCOUNTER 2022-03-28 16:54 | Outpatient (CLI) | payer OTHER ==
--- NOTE | 2022-03-29 19:48 | XRAY Report ---
PROCEDURE: Foot 3 View LT INDICATIONS: LT FOOT PAIN TECHNIQUE: 3 views of the foot were acquired. COMPARISON: 02/14/2020 FINDINGS: Bones: No fractures or dislocations. Osteoarthritic changes are noted throughout left foot not signi ficantly changed from prior study. There is osteopenia. No bony erosive changes. Small plantar and do rsal calcaneal enthesophytes are seen. No suspicious bony lesions. Soft tissues: No tibiotalar joint effusion. Achilles tendon appears normal. IMPRESSION: Diffuse osteopenia. No acute left foot fracture or dislocation. Osteoarthritic changes throughout lef t foot not significantly changed from prior study. Reviewed by: Eldon Gonzalez MD on 03/29/2022 7:46 PM PDT Approved by: Eldon Gonzalez MD on 03/29/2022 7:46 PM PDT Station ID: [id number]
== END 2022-03-28 16:55 | disposition home or self-care (01) ==
LOC: DI 16:54
PROVIDERS: ATTEND Physician Assistant
DX: M85.872 Other specified disorders of bone density and structure, left ankle and foot (principal); M19.072 Primary osteoarthritis, left ankle and foot

== ENCOUNTER 2022-04-15 10:00 | Outpatient (CLI) | payer OTHER ==
[2022-04-15 13:21] LABS: BUN - BLOOD UREA NITROGEN 14 mg/dL (6-20); CALCIUM 10.3 mg/dL (8.5-10.3); CARBON DIOXIDE - CO2 26 mmol/L (21-32); CHLORIDE 99 mmol/L (101-111); CHOL/HDL RATIO 8.3 (<4.4); CHOLESTEROL 273 mg/dL; CREATININE 0.5 mg/dL (0.4-1.0); GFR - MDRD 134 (>89); GLUCOSE 287 mg/dL (70-100); HDL CHOLESTEROL 33 mg/dL; POTASSIUM 4.6 mmol/L (3.5-5.0); SODIUM 136 mmol/L (135-145); TRIGLYCERIDES 474 mg/dL
[2022-04-15 13:26] LABS: ESTIMATED AVERAGE GLUCOSE 209 mg/dL (70-100); HEMOGLOBIN A1c% 8.9 % (4.27-6.07)
[2022-04-15 14:26] LABS: LDL CHOLESTEROL,DIRECT 132 mg/dL
== END 2022-04-15 10:01 | disposition home or self-care (01) ==
LOC: LAB.N 10:00
PROVIDERS: ATTEND Physician Assistant Medical
DX: E11.9 Type 2 diabetes mellitus without complications (principal)
CPT/HCPCS: 36415; 80048; 80061; 83036; 83721

== ENCOUNTER 2022-07-11 10:20 | Outpatient (CLI) | payer OTHER ==
[2022-07-11 12:21] LABS: CALCIUM 9.9 mg/dL (8.5-10.3); CREATININE 0.5 mg/dL (0.4-1.0); POTASSIUM 4.1 mmol/L (3.5-5.0)
[2022-07-11 12:53] LABS: ESTIMATED AVERAGE GLUCOSE 209 mg/dL (70-100); HEMOGLOBIN A1c% 8.9 % (4.27-6.07)
== END 2022-07-11 10:21 | disposition home or self-care (01) ==
LOC: LAB.N 10:20
PROVIDERS: ATTEND Physician Assistant Medical
DX: E11.9 Type 2 diabetes mellitus without complications (principal)
CPT/HCPCS: 36415; 80048; 83036

== ENCOUNTER 2022-10-15 10:42 | Outpatient (CLI) | payer OTHER ==
[2022-10-15 18:05] LABS: ALBUMIN/GLOBULIN RATIO 1.3 (1.0-2.2); ALKALINE PHOSPHATASE 68 IU/L (42-121); ALT ALANINE AMINOTRANSFERASE 36 IU/L (10-60); AST ASPARTATE AMINOTRANSFERASE 23 IU/L (10-42); BILIRUBIN,TOTAL 0.5 mg/dL (0.2-1.0); BUN - BLOOD UREA NITROGEN 12 mg/dL (6-20); CALCIUM 10.3 mg/dL (8.5-10.3); CARBON DIOXIDE - CO2 27 mmol/L (21-32); CHLORIDE 104 mmol/L (101-111); CHOL/HDL RATIO 6.6 (<4.4); CHOLESTEROL 230 mg/dL; CREATININE 0.5 mg/dL (0.4-1.0); GFR - MDRD 133 (>89); GLUCOSE 208 mg/dL (70-100); HDL CHOLESTEROL 35 mg/dL; LDL CHOLESTEROL,CALCULATED 124 mg/dL; LDL/HDL RATIO 3.5 (<4.4); POTASSIUM 4.4 mmol/L (3.5-5.0); SODIUM 139 mmol/L (135-145); TRIGLYCERIDES 356 mg/dL; VLDL CHOLESTEROL 71 mg/dL
[2022-10-15 20:18] LABS: ESTIMATED AVERAGE GLUCOSE 200 mg/dL (70-100); HEMOGLOBIN A1c% 8.6 % (4.27-6.07)
== END 2022-10-15 10:43 | disposition home or self-care (01) ==
LOC: LAB.N 10:42
PROVIDERS: ATTEND Physician Assistant Medical
DX: E11.9 Type 2 diabetes mellitus without complications (principal)
CPT/HCPCS: 36415; 80053; 80061; 83036; 83721

== ENCOUNTER 2022-10-18 22:49 | Emergency (ER) | payer OTHER ==
--- NOTE | 2022-10-18 23:01 | ED Physician Documentation ---
PD HPI UPPER EXT INJURY - Stated complaint Stated Complaint: LFT ARM/CAT BITE - Chief complaint Chief Complaint: Ext Problem - History obtained from History obtained from: Patient - Additonal information Additional information: HPI from patient. Patient was bitten by a cat at approximately 07:30 this morning. The cat is a ferral cat, living nearby without an counter installer but visits patient's house daily be cause patient feeds it. Patient was bitten once by the cat to patient's left forearm. Patient is right hand dominant. Patient c/o gradually increasing pain, swelling surrounding the bite Review of Systems Skin: reports: Bite / sting Musculoskeletal: reports: Extremity pain, Extremity swelling PD PAST MEDICAL HISTORY - Past Medical History Cardiovascular: Hypertension, High cholesterol (Cannot tolerate statins, not even red yeast rice) Respiratory: Other Neuro: Migraines, Peripheral neuropathy Endocrine/Autoimmune: Type 2 diabetes, Other GI: Pancreatitis, Other FLIGHT SERVICE AGENT: Miscarriage(s), Other Psych: Other Musculoskeletal: Osteoarthritis, Chronic back pain, Other Derm: Eczema, Other - Past Surgical History Past Surgical History: No - Present Medications Home Medications: Ambulatory Orders Medication Instructions Recorded Confirmed Alpha Lipoic Acid 200 mg PO TID 04/14/19 02/01/21 Arginine [l-Arginine] 500 mg PO DAILY 04/14/19 02/01/21 Biotin 2,000 mcg PO BID 04/14/19 02/01/21 Cholecalciferol (Vitamin D3) 1,000 unit PO DAILY 04/14/19 02/01/21 [Vitamin D3] Cinnamon Bark [Cinnamon] 500 mg PO DAILY 04/14/19 02/01/21 Folic Acid 0.8 mg PO DAILY 04/14/19 02/01/21 Glimepiride 4 mg PO DAILY 04/14/19 02/01/21 Grape Seed Extract [Meganatural-Bp] 150 mg PO BID 04/14/19 02/01/21 Green Tea [place] Extract [Green Tea 300 mg PO DAILY 04/14/19 02/01/21 Extract] Insulin Lispro [Humalog] 0 - 60 unit SUBQ QID 04/14/19 02/01/21 Insulin NPH Human Isophane 60 units SQ DAILY 04/14/19 02/01/21 [Humulin N] Krill/Om-3/Dha/Epa/Phospho/Ast 2 each PO DAILY 04/14/19 02/01/21 [Krill Oil 500 mg Softgel] Magnesium 250 mg PO DAILY 04/14/19 02/01/21 Metformin HCl 1,000 mg PO BID 04/14/19 02/01/21 Milk Thistle Seed Extract [Milk 175 mg PO BID 04/14/19 02/01/21 Thistle] Omeprazole 20 mg PO BIDAC 04/14/19 02/01/21 Potassium Gluconate 99 mg PO DAILY 04/14/19 02/01/21 Senna [Senokot] 34.6 mg PO DAILY 04/14/19 02/01/21 Turmeric Root Extract [Turmeric] 500 mg PO TID 04/14/19 02/01/21 Vitamin E (Dl,Tocopheryl Acet) 400 unit PO DAILY 04/14/19 02/01/21 [Vitamin E] inositoL [Inositol] 500 mg PO DAILY 04/14/19 02/01/21 lisinopriL [Lisinopril] 10 mg PO DAILY 04/14/19 02/01/21 Insulin NPH Human [Humulin N] 70 unit SUBQ QPM 02/01/21 02/01/21 Naproxen 500 mg PO BID PRN 02/01/21 02/01/21 Amox/Clav 875/125 [Augmentin 1 tablet PO Q12H 10 Days #20 tablet 10/18/22 875/125 Tab] - Allergies Allergies/Adverse Reactions: Allergies Allergy/AdvReac Type Severity Reaction Status Date / Time tomato Allergy Unknown Verified 01/31/21 16:54 - Social History Does the pt smoke?: No Smoking Status: Never smoker Does the pt drink ETOH?: No Does the pt have substance abuse?: No - Immunizations Immunizations are current?: Yes - POLST Patient has POLST: No POLST Status: Full Code PD ED PE NORMAL - Vitals Vital signs reviewed: Yes - General General: Alert and oriented X 3, No acute distress, Well developed/nourished PD ED PE EXPANDED - Extremities Extremities: Other (faint, poorly marginated erythema with mild swelling as diagrammed, left forearm posterolateral asepct. There are two puncture wounds central to the swelling without discharge. No fluctuance, not hot to touch) GERSON UE/Hands Visual: 1 - swelling, tenderness Results - Vitals Vitals: Oxygen O2 Source Room air PD Medical Decision Making - ED course Complexity details: considered differential, d/w patient ED course: Presents after being bitten by a cat, mild swelling, tenderness and erythema on exam. Given augmentin in ED and rx for same. Return precautions discussed. Departure - Departure Disposition: 01 Home, Self Care Clinical Impression: Cat bite of forearm Condition: Good Instructions: ED Bite Cat Prescriptions: Amox/Clav 875/125 [Augmentin 875/125 Tab] 1 tablet PO Q12H 10 Days #20 tablet Comments: You are given the first dose of an antibiotic (Augmentin) in the emergency department and I have electronically submitted a prescription for this medication to the [facility] pharmacy in [place]. Discharge Date/Time: 10/18/22 23:34
[2022-10-18 23:02] VITALS: BP 181/86
[2022-10-18] MEDS ORDERED: AMOX/CLAV 875 MG/125 MG TABLET PO STA (23:19)
[2022-10-18] MEDS ORDERED: TETANUS/DIPHTHERIA TOXOID 0.5 ML SYRINGE IM ONE (23:19)
== END 2022-10-18 23:34 | disposition home or self-care (01) ==
LOC: ED 22:49
DX: S51.852A Open bite of left forearm, initial encounter (principal); W55.01XA Bitten by cat, initial encounter
CPT/HCPCS: 90471; 90714; 99283; A9270

== ENCOUNTER 2022-12-14 22:14 | Emergency (ER) | payer OTHER ==
[2022-12-14] MEDS ORDERED: KETOROLAC 30 MG/ML VIAL IM STA (22:40)
[2022-12-14] MEDS ORDERED: LIDOCAINE PATCH 5% TOP STA (22:40)
--- NOTE | 2022-12-15 01:33 | ED Physician Documentation ---
History of Present Illness - Stated complaint Stated Complaint: RIB PX - Chief complaint Chief Complaint: General - History obtained from History obtained from: Patient - History of Present Illness Timing: Yesterday - Additonal information Additional information: Patient presents from home by private vehicle for 2 days of right-sided rib pain. Patient states that her back was being adjusted by her chiropractor when she felt a pop in her ribs. She has reported significant pain in her right ribs, worse with deep inspiration and palpation. Has been taking Motrin without relief. Denies chest pain, shortness of breath. Review of Systems Constitutional: denies: Fever, Chills Cardiac: reports: Chest pain / pressure. denies: Palpitations Respiratory: denies: Dyspnea, Cough, Wheezing PD PAST MEDICAL HISTORY - Past Medical History Past Medical History: Yes Cardiovascular: Hypertension, High cholesterol (Cannot tolerate statins, not even red yeast rice) Respiratory: Other Neuro: Migraines, Peripheral neuropathy Endocrine/Autoimmune: Type 2 diabetes, Other GI: Pancreatitis, Other RECEIVING DOCK CHECKER: Miscarriage(s), Other Psych: Other Musculoskeletal: Osteoarthritis, Chronic back pain, Other Derm: Eczema, Other - Past Surgical History Past Surgical History: No - Present Medications Home Medications: Ambulatory Orders Medication Instructions Recorded Confirmed Alpha Lipoic Acid 200 mg PO TID 04/14/19 12/05/22 Arginine [l-Arginine] 500 mg PO DAILY 04/14/19 12/05/22 Biotin 2,000 mcg PO BID 04/14/19 12/05/22 Cholecalciferol (Vitamin D3) 1,000 unit PO DAILY 04/14/19 12/05/22 [Vitamin D3] Cinnamon Bark [Cinnamon] 500 mg PO DAILY 04/14/19 12/05/22 Folic Acid 0.8 mg PO DAILY 04/14/19 12/05/22 Glimepiride 4 mg PO DAILY 04/14/19 12/05/22 Grape Seed Extract [Meganatural-Bp] 150 mg PO BID 04/14/19 12/05/22 Green Tea [place] Extract [Green Tea 300 mg PO DAILY 04/14/19 12/05/22 Extract] Insulin Lispro [Humalog] 0 - 60 unit SUBQ QID 04/14/19 12/05/22 Insulin NPH Human Isophane 60 units SQ DAILY 04/14/19 12/05/22 [Humulin N] Krill/Om-3/Dha/Epa/Phospho/Ast 2 each PO DAILY 04/14/19 12/05/22 [Krill Oil 500 mg Softgel] Magnesium 250 mg PO DAILY 04/14/19 12/05/22 Metformin HCl 1,000 mg PO BID 04/14/19 12/05/22 Milk Thistle Seed Extract [Milk 175 mg PO BID 04/14/19 12/05/22 Thistle] Omeprazole 20 mg PO BIDAC 04/14/19 12/05/22 Potassium Gluconate 99 mg PO DAILY 04/14/19 12/05/22 Senna [Senokot] 34.6 mg PO DAILY 04/14/19 12/05/22 Turmeric Root Extract [Turmeric] 500 mg PO TID 04/14/19 12/05/22 Vitamin E (Dl,Tocopheryl Acet) 400 unit PO DAILY 04/14/19 12/05/22 [Vitamin E] inositoL [Inositol] 500 mg PO DAILY 04/14/19 12/05/22 lisinopriL [Lisinopril] 10 mg PO DAILY 04/14/19 12/05/22 Insulin NPH Human [Humulin N] 70 unit SUBQ QPM 02/01/21 12/05/22 Naproxen 500 mg PO BID PRN 02/01/21 12/05/22 Amox/Clav 875/125 [Augmentin 1 tablet PO Q12H 10 Days #20 tablet 10/18/22 12/05/22 875/125 Tab] Lidocaine Patch 5% [Lidoderm Patch] 1 each TOP DAILY #5 patch 12/15/22 methocarbamoL [Robaxin] 500 mg PO Q6H #20 tablet 12/15/22 - Allergies Allergies/Adverse Reactions: Allergies Allergy/AdvReac Type Severity Reaction Status Date / Time tomato Allergy Unknown Verified 12/14/22 22:21 Vitamin C Allergy Unknown Uncoded 12/14/22 22:21 - Social History Does the pt smoke?: No Smoking Status: Never smoker Does the pt drink ETOH?: No Does the pt have substance abuse?: No - Immunizations Immunizations are current?: Yes - POLST Patient has POLST: No POLST Status: Full Code PD ED PE NORMAL - Vitals Vital signs reviewed: Yes - General General: Alert and oriented X 3, No acute distress, Well developed/nourished - Neck Neck: Supple, no meningeal sign - Cardiac Cardiac: No murmur, Strong equal pulses - Respiratory Respiratory: No respiratory distress, Clear bilaterally, Other (TTP Right anterior chest wall) - Abdomen Abdomen: Soft, Non tender, Non distended - Derm Derm: Normal color, Warm and dry, No rash - Extremities Extremities: No deformity, No tenderness to palpate, Normal ROM s pain, No edema - Neuro Neuro: Alert and oriented X 3, leak patcher 2-12 intact, No motor deficit, Normal speech - Psych Psych: Normal mood, Normal affect Results - Vitals Vitals: Vital Signs - 24 hr 12/14/22 12/15/22 22:17 01:36 Temperature 36.7 C 36.7 C Heart Rate 82 78 Respiratory 16 16 Rate Blood Pressure 146/88 H 131/81 H O2 Saturation 97 98 Oxygen O2 Source Room air PD Medical Decision Making - ED course Complexity details: reviewed results, re-evaluated patient, considered differential, d/w patient ED course: For pain after undergoing chiropractic adjustment. No crepitus, no obvious physical exam abnormalities. X-ray showed no acute pathology. Patient was gi dianelys nonnarcotic medications and discharged home with muscle relaxers. Counseled to continue taking Tylenol and Motrin as needed for pain. Departure - Departure Disposition: 01 Home, Self Care Clinical Impression: Rib pain Condition: Stable Instructions: ED Strain Chest Wall Prescriptions: Lidocaine Patch 5% [Lidoderm Patch] 1 each TOP DAILY #5 patch methocarbamoL [Robaxin] 500 mg PO Q6H #20 tablet Forms: PCP List Discharge Date/Time: 12/15/22 02:05
[2022-12-15 01:38] VITALS: BP 131/81
--- NOTE | 2022-12-15 01:45 | XRAY Report ---
PROCEDURE: Ribs 2 View RT INDICATIONS: R RIB PAIN S/P CHIROPRACTIC ADJUSTMENT TECHNIQUE: 5 views of the right ribs were acquired. COMPARISON: None. FINDINGS: Surgical changes and devices: None. Bones and chest wall: No displaced rib fracture identified. No suspicious bony lesions. Overlying s oft tissues appear unremarkable. Lungs and pleura: The visualized lung appears clear. No pleural effusions or pneumothorax are visib le. IMPRESSION: 1. No displaced rib fracture identified. Reviewed by: Shaheed Orozco MD on 12/15/2022 1:43 AM PDT Approved by: Shaheed Orozco MD on 12/15/2022 1:43 AM PDT Station ID: [id number]
[2022-12-15] MEDS ORDERED: oxyCODONE/ACET 5/325 Prepack 4 PO STA (01:51)
== END 2022-12-15 02:05 | disposition home or self-care (01) ==
LOC: ED 22:14
DX: R07.81 Pleurodynia (principal)
CPT/HCPCS: 71100; 96372; 99283; A9270

== ENCOUNTER 2023-03-27 08:37 | Outpatient (CLI) | payer OTHER ==
[2023-03-27 13:14] LABS: ALBUMIN 4.2 g/dL (3.2-5.5); ALBUMIN/GLOBULIN RATIO 1.6 (1.0-2.2); ALKALINE PHOSPHATASE 108 IU/L (42-121); ALT ALANINE AMINOTRANSFERASE 24 IU/L (10-60); AST ASPARTATE AMINOTRANSFERASE 16 IU/L (10-42); BILIRUBIN,TOTAL 0.6 mg/dL (0.2-1.0); BUN - BLOOD UREA NITROGEN 12 mg/dL (6-20); CALCIUM 10.7 mg/dL (8.5-10.3); CARBON DIOXIDE - CO2 30 mmol/L (21-32); CHLORIDE 103 mmol/L (101-111); CHOL/HDL RATIO 6.8 (<4.4); CHOLESTEROL 253 mg/dL; CREATININE 0.5 mg/dL (0.6-1.3); GFR - MDRD 133 (>89); GLUCOSE 264 mg/dL (74-104); HDL CHOLESTEROL 37 mg/dL; LDL CHOLESTEROL,CALCULATED 143 mg/dL; LDL/HDL RATIO 3.9 (<4.4); POTASSIUM 4.3 mmol/L (3.5-4.5); SODIUM 137 mmol/L (135-145); TOTAL PROTEIN 6.9 g/dL (6.4-8.9); TRIGLYCERIDES 366 mg/dL (48-352); VLDL CHOLESTEROL 73 mg/dL
[2023-03-27 16:24] LABS: ESTIMATED AVERAGE GLUCOSE 240 mg/dL (70-100)
== END 2023-03-27 08:38 | disposition home or self-care (01) ==
LOC: LAB.N 08:37
PROVIDERS: ATTEND Physician Assistant Medical
DX: E11.9 Type 2 diabetes mellitus without complications (principal)
CPT/HCPCS: 36415; 80053; 80061; 83036; 83721

== ENCOUNTER 2023-04-03 14:52 | Outpatient (CLI) | payer OTHER ==
--- NOTE | 2023-04-03 18:36 | XRAY Report ---
PROCEDURE: Ribs 2 View LT INDICATIONS: RIB PAIN,LEFT SIDED TECHNIQUE: 2 views of the left ribs were acquired. COMPARISON: Correlation is made with right rib plain film study, 12/14/2022 FINDINGS: Surgical changes and devices: None. Bones and chest wall: A marker is placed upon the area of pain. At this site, no fractures are seen. No fractures or dislocations are seen elsewhere. No suspicious bony lesions. Age-appropriate degen erative changes are seen. The overlying soft tissues appear unremarkable. Lungs and pleura: The visualized lung appears clear. No pleural effusions or pneumothorax are visib le. IMPRESSION: No displaced fracture or pneumothorax. Reviewed by: Layton Hairston MD on 04/03/2023 5:35 PM [place] Approved by: Layton Hairston MD on 04/03/2023 5:35 PM [place] Station ID: [id number]
== END 2023-04-03 14:53 | disposition home or self-care (01) ==
LOC: DI 14:52
PROVIDERS: ATTEND Physician Assistant Medical
DX: R07.81 Pleurodynia (principal)

== ENCOUNTER 2023-06-24 09:11 | Outpatient (CLI) | payer OTHER ==
[2023-06-24 12:54] LABS: CALCIUM 10.5 mg/dL (8.5-10.3); CREATININE 0.5 mg/dL (0.6-1.3); POTASSIUM 4.3 mmol/L (3.5-4.5)
[2023-06-24 14:03] LABS: ESTIMATED AVERAGE GLUCOSE 229 mg/dL (70-100); HEMOGLOBIN A1c% 9.6 % (4.27-6.07)
== END 2023-06-24 09:12 | disposition home or self-care (01) ==
LOC: LAB.N 09:11
PROVIDERS: ATTEND Physician Assistant Medical
DX: E11.65 Type 2 diabetes mellitus with hyperglycemia (principal); E83.52 Hypercalcemia
CPT/HCPCS: 36415; 80048; 83036; 83970

== ENCOUNTER 2023-07-06 08:00 | Outpatient (CLI) | payer OTHER | END 2023-07-06 23:59 | disposition home or self-care (01) | LOC: LAB.WCP 08:00 | PROVIDERS: ATTEND Physician Assistant Medical | DX: N39.0 Urinary tract infection, site not specified (principal) | CPT/HCPCS: 87077; 87086 ==

== ENCOUNTER 2023-09-23 11:48 | Outpatient (CLI) | payer OTHER ==
[2023-09-23 18:19] LABS: CREATININE,URINE 13.4 mg/dL
[2023-09-23 18:20] LABS: MICROALBUMIN,URINE < 0.7 mg/dL
[2023-09-23 21:34] LABS: ESTIMATED AVERAGE GLUCOSE 217 mg/dL (70-100); HEMOGLOBIN A1c% 9.2 % (4.27-6.07)
== END 2023-09-23 11:49 | disposition home or self-care (01) ==
LOC: LAB.N 11:48
PROVIDERS: ATTEND Nurse Practitioner
DX: E11.65 Type 2 diabetes mellitus with hyperglycemia (principal)
CPT/HCPCS: 36415; 82043; 82570; 83036

== ENCOUNTER 2024-01-06 10:19 | Outpatient (CLI) | payer OTHER ==
[2024-01-06 10:47] LABS: BUN - BLOOD UREA NITROGEN 10 mg/dL (6-20); CALCIUM 10.2 mg/dL (8.5-10.3); CARBON DIOXIDE - CO2 28 mmol/L (21-32); CHLORIDE 105 mmol/L (101-111); CHOL/HDL RATIO 6.2 (<4.4); CHOLESTEROL 234 mg/dL; CREATININE 0.5 mg/dL (0.6-1.3); GFR - MDRD 133 (>89); GLUCOSE 204 mg/dL (74-104); HDL CHOLESTEROL 38 mg/dL; LDL CHOLESTEROL,CALCULATED 140 mg/dL; LDL/HDL RATIO 3.7 (<4.4); POTASSIUM 4.6 mmol/L (3.5-4.5); SODIUM 136 mmol/L (135-145); TRIGLYCERIDES 280 mg/dL; VLDL CHOLESTEROL 56 mg/dL
[2024-01-06 11:45] LABS: ESTIMATED AVERAGE GLUCOSE 212 mg/dL (70-100)
== END 2024-01-06 10:20 | disposition home or self-care (01) ==
LOC: LAB 10:19
PROVIDERS: ATTEND Physician Assistant Medical
DX: E11.65 Type 2 diabetes mellitus with hyperglycemia (principal)
CPT/HCPCS: 36415; 80048; 80061; 83036; 83721